=== PATIENT | male | born 1950 | race Caucasian/White ===

== ENCOUNTER 2016-07-14 22:11 | Inpatient (IN) | payer MEDICARE, OTHER ==
[~2016-07-14] VITALS: Ht 165.1 cm; Wt 77.0 kg
[~2016-07-14 22:11] MED LIST: AMLO-218 PO; ASPI-664 PO; ATOR20TA38 PO; CARV6.2579 PO; CIPR500T4 PO; DOCU-144 PO; LACTINEX PO; LANT3I SC; LOSA50TA6 PO; METF500T PO; METR500T14 PO
[2016-07-14 22:27] LABS: ADD SCAN DIFF NO
[2016-07-14] MEDS: LABETALOL HCL 20MG INJ IV PRN ×2 (22:27→23:00)
[2016-07-14 22:32] LABS: BASOPHILS % 0.3 % (0.0-2.0); EOSINOPHILS # 0.2 10^3/ul (0.0-0.5); EOSINOPHILS % 1.9 % (0.0-7.0); HEMATOCRIT 44.8 % (42.0-52.0); HEMOGLOBIN 16.2 g/dl (14.0-18.0); LYMPHOCYTES # 2.7 10^3/ul (0.8-2.9); LYMPHOCYTES % 26.9 % (15.0-51.0); MEAN CORPUSCULAR HEMOGLOBIN 30.6 pg (29.0-33.0); MEAN CORPUSCULAR HGB CONC 36.2 g/dl (32.0-37.0); MEAN CORPUSCULAR VOLUME 84.7 fl (82.0-101.0); MEAN PLATELET VOLUME 9.1 fl (7.4-10.4); MONOCYTE # 0.8 10^3/ul (0.3-0.9); MONOCYTES % 8.5 % (0.0-11.0); NEUTROPHIL # 6.1 10^3/ul (1.6-7.5); NEUTROPHILS % 62.1 % (39.0-77.0); PLATELET COUNT 213 10^3/UL (140-415); RED BLOOD COUNT 5.29 10^6/ul (4.70-6.10); RED CELL DISTRIBUTION WIDTH 12.3 % (11.5-14.5); WHITE BLOOD COUNT 9.9 10^3/ul (4.8-10.8)
[2016-07-14 22:37] LABS: ALBUMIN 4.5 g/dl (3.3-4.9); CHLORIDE 100 mmol/L (97-110)
[2016-07-14 22:38] LABS: INR 0.82; PROTIME 11.3 Sec (12.2-14.2); PT RATIO 0.9; SODIUM 140 mmol/L (135-144)
[2016-07-14 22:39] LABS: PARTIAL THROMBOPLASTIN TIME 23.4 Sec (25.0-35.0)
[2016-07-14 22:40] LABS: ALKALINE PHOSPHATASE 109 IU/L (42-121); ANION GAP 16 (8-16); ASPARTATE AMINO TRANSFERASE 19 IU/L (15-46); BILIRUBIN,INDIRECT 0.4 mg/dl (0-1.1); BILIRUBIN,TOTAL 0.4 mg/dl (0.2-1.3); CARBON DIOXIDE 28 mmol/L (21-31); CREATININE 0.83 mg/dl (0.61-1.24)
[2016-07-14 22:41] LABS: ALANINE AMINOTRANSFERASE 32 IU/L (13-69); ALBUMIN/GLOBULIN RATIO 1.45; BLOOD UREA NITROGEN 16 mg/dl (7-20); GLUCOSE 325 mg/dl (70-220); TOTAL PROTEIN 7.6 g/dl (6.1-8.1)
--- NOTE | 2016-07-14 22:49 | RADRPT ---
AMENDMENT: 07/14/2016 10:49:25 PM Negro Cabrera MD COMPARISON: Chest x-ray February 20, 2015. PROCEDURE: CHEST - 1 VIEW CLINICAL INDICATION: 66-year-old male with chest pain. TECHNIQUE: A single frontal AP semi-erect view of the chest was performed portably. The images we re reviewed on a PACS workstation. COMPARISON: Chest x-ray February [id number]. FINDINGS: The cardiomediastinal silhouette is mildly enlarged. There is a shallow inspiration. There is mini mal bibasilar subsegmental atelectasis. There is no evidence for an infiltrate. There is no eviden ce for congestive heart failure. There is no evidence for pneumothorax. The osseous structures are i ntact. IMPRESSION: 1. Cardiomegaly. 2. Shallow inspiration. 3. Minimal bibasilar subsegmental atelectasis. .Negro Cabrera MD, MD Date Time Electronically viewed and signed by .Negro Cabrera MD, on 07/14/2016 22:50 .M/
--- NOTE | 2016-07-14 22:51 | RADRPT ---
PROCEDURE: CT Brain without contrast. CLINICAL INDICATION: Possible Stroke TECHNIQUE: A multiplanar CT of the brain was performed on a CT scanner utilizing axial imaging fro m the skull base through the vertex without IV contrast. The CTDIvol is 39.15 mGy and the DLP is 63 4.23 mGycm. One or more of the following dose reduction techniques were utilized: Automated exposu re control, adjustment of the mA and/or kV according to patient size, use of iterative reconstructio n technique. COMPARISON: 02/20/2015 CT brain FINDINGS: No evidence of intracranial hemorrhage or abnormal extra-axial fluid collection. Extensive patchy and confluent low attenuation throughout the deep white matter, basal ganglia, and brainstem, compatible with sequelae of chronic microvascular ischemic injury. Remote right occipita l lobe and left superior cerebellar hemisphere ischemic infarcts. The ventricles and subarachnoid spaces are prominent compatible with a mild loss. The basal cisterns, posterior fossa contents, brainstem, craniocervical junction, orbits, pituitary axis, paranasal sinuses, mastoid air cells, and calvarium are unremarkable. IMPRESSION: 1. No intracranial hemorrhage or abnormal extra-axial fluid collection. 2. Extensive chronic microvascular ischemic changes deep white matter with remote ischemic infarcti on in the right occipital and left superior cerebellar hemisphere. 3. Early ischemic injury may be occult to CT imaging and diffusion weighted MRI may be considered as clinically warranted. 4. Results were discussed with José Antonio Matthews 07/14/2016 10:46:26 PM . RPTAT:AAJJ Physician Yumiko Date Time Electronically viewed and signed by Physician Yumiko on 07/14/2016 22:51 ENE/
[2016-07-14 22:53] LABS: TROPONIN-I < 0.010 ng/ml (0.00-0.12)
--- NOTE | 2016-07-14 23:17 | QN ---
Documentation Comment 66 yo man with history of stroke presents with symptoms concerning for stroke. Last well ~19:45 local time per family, then balance difficulty and some right side leaning, dizziness. Similar to prior presentation that ultimately was determined not to be stroke, however CT head shows numerous prior strokes. Very hypertensive on presentation, "not good about taking meds" including ASA. No other blood thinner use reported. No recent surgery or major trauma. Examination shows him to be awake, alert, not latvian speaking for the most part , family translates. No definite dysarthria, EOMI, no evidence of visual field loss or hemineglect. No diplopia. No droop. No drift of arms, subjectively feels right arm weaker than usual. Legs bilaterally weak (baseline walker use) . Minor sensory change on right he thinks. NIHSS = 4 Dx: 1. Dizziness and balance trouble 2. H/o similar symptoms and negative stroke evaluation 3. Numerous prior strokes 4. Hypertension, severe Recs: Discussed option of tPA with patient and family. Due to lack of significant objective deficit adjusting for baseline deficit, and given the fact the patient has presented similarly with negative stroke evaluation, I feel chance of benefit is small. I also think chance for harm higher than usual due to severe hypertension and history of hemorrhagic transformation of prior stroke. Overall risk>benefit as best I can determine. Did discuss with them that this could be a new stroke and I have little ability to predict how symptoms will evolve. Cautious blood pressure management to avoid hypotension. Eval toxic/metabolic/infectious process. MRI brain if possible. RUFINO FRANKLIN MD Jul 14, 2016 23:17
[2016-07-14 23:28] LABS: ADD UMIC YES; URINE BILIRUBIN (Dip) NEGATIVE (NEGATIVE); URINE BLOOD (Dip) 1+ (NEGATIVE); URINE COLOR LT. YELLOW (YELLOW); URINE GLUCOSE (Dip) >=1000 % (NEGATIVE); URINE KETONES (Dip) 15 (NEGATIVE); URINE LEUKOCYTE ESTERASE (Dip) NEGATIVE (NEGATIVE); URINE NITRITE (Dip) NEGATIVE (NEGATIVE); URINE TOTAL PROTEIN (Dip) 2+ (NEGATIVE); URINE UROBILINOGEN (Dip) 0.2 E.U./dL (0.1-1.0)
[2016-07-14] MEDS ORDERED: niCARdipine-D5W 0.1MG/ML DRIP 200 ML IV STA (23:39)
[2016-07-14] MEDS ORDERED: INSULIN REGULAR, HUMAN 100 UNIT in SOD CHLORIDE 0.9% 99 ML IV STA ×2 (23:39)
[2016-07-14 23:50] LABS: URINE RBCS 0-2 /HPF (0)
[2016-07-14] MEDS ORDERED: SOD CHLORIDE 0.9% 1,000 ML IV SCH (23:54)
[2016-07-14 23:57] LABS: BARBITURATES Negative (NEGATIVE); BENZODIAZEPINES Negative (NEGATIVE); CANNABINOIDS Negative (NEGATIVE); COCAINE Negative (NEGATIVE); OPIATES Negative (NEGATIVE)
[2016-07-15] VITALS (85 sets, daily range): BP systolic 119–185; BP diastolic 58–98; PULSE 76–108; RESP 7–30; TEMP 98.2; Ht 165.1 cm; Wt 77.0 kg
[2016-07-15] MEDS ORDERED: FLUMAZENIL 0.5 MG INJ IV PRN
[2016-07-15] MEDS ORDERED: ACETAMINOPHEN 650 MG SUPP PR PRN
[2016-07-15] MEDS ORDERED: ALBUTEROL 0.5% (NEB) 2.5 MG/0.5 ML AMP NEB PRN
[2016-07-15] MEDS ORDERED: morphine 2 MG INJ IV PRN
[2016-07-15] MEDS ORDERED: INSULIN REGULAR, HUMAN 100 UNIT in SOD CHLORIDE 0.9% 99 ML IV SCH ×2
[2016-07-15] MEDS ORDERED: IPRATROPIUM (NEB) 0.5 MG/2.5 ML AMP NEB PRN
[2016-07-15] MEDS ORDERED: NITROGLYCERIN (SL) 0.4 MG TAB SL PRN
[2016-07-15] MEDS ORDERED: BISACODYL 10 MG SUPP PR PRN
[2016-07-15] MEDS: ACCUCHECK XX SCH ×12 (00:20→11:26)
--- NOTE | 2016-07-15 00:54 | HP ---
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 1. Acute ischemic stroke - will admit the patient to the ICU, consult neurology , neurovascular checks, fall precautions, PT/OT/ST eval, 2D ECHO, TSH, mag levels, cycle cardiac markers, check lipid panel 2. Hypertensive Emergency - will continue with cardene drip to maintain sbp < 180 3. Type II DM - uncontrolled - check hgba1c, Insulin drip 4. CAD s/p PCI - restart aspirin, add plavix 5. Hypothyroidism - check TSH, c/w synthroid 6. CHF with diastolic dysfunction - ECHO, lasix prn 7. Hyperlipidemia - lipid panel - statin therapy 8. Non-compliance - long conversation with patient held for taking aspirin/ plavix as scheduled 9. GI ppx - pepcid 10. DVT ppx - scds answered all of his questions. as per clinical course. this critical care note took greater than 1 hour to complete HPI/ROS Admit Date/Time Admit Date/Time 07/15/2016, 12:47 am Hx of Present Illness 66 yo male with a past medical history of multiple CVA with residual left sided weakness, type II DM, essential hypertension, CAD s/p PCI x2, hypothyroidism, CHF diastolic dysfunction, hyperlipidemia, who presents with right sided weakness. Around 7:45 pm the patient had gone to the bathroom, and the heard a thump noise. She thought he had fallen. She went into the bathroom, and the patient stated that he felt like he about to fall. He started walking, and the patient started drifting to the right, with dizziness and headache, blurriness in vision. No slurred speech or facial droop was noted. The called EMS, and brought him here to [facility]. He denied any chest pain, shortness of breath, nausea/vomiting/diarrhea/constipation, urinary/ bowel irregularities, fevers/chills, or other constitutional symptoms. ED course: code stroke was called, no TPA 2/2 ischemia, IV cardene and IV insulin gtt started. ROS 14 point review of systems completed, please refer to HPI for any positive findings PMH/Family/Social Past Medical History previous CVA x2 Medical History: congestive heart failure, coronary artery disease, diabetes, high cholesterol, hypertension, hypothyroid Past Surgical History cataracts, nephrolithiasis removal Past Surgical Hx: angioplasty Family History Significant Family History: no pertinent family hx Social History Alcohol Use: none Smoking Status: Former smoker Drug Use: none Exam/Review of Systems Vital Signs Vitals Vital Signs Date Time Temp Pulse Resp B/P Pulse Ox O2 Delivery O2 Flow Rate FiO2 07/15/16 00:00 98.2 76 17 174/81 98 Nasal Cannula 2.0 Exam Exam Gen [place]: mild to moderate distress 2/2 to right sided weakness, AAOx4 HEENT: PERRLA, EOMI, no pharyngeal erythema, no tonsillar exudates, no lymphadenopathy, no JVD, 1+ bilateral carotid bruits, mild right facial droop NECK: supple, no thyromegaly THORAX: symmetrical, no obvious deformities CV: S1S2, RRR, no M/G/R Lungs: CTAB no W/C/R/R Abd: soft, NT/ND, +BS, no rebound, no guarding, neg HSM EXT: no edema, no ecchymosis, no clubbing, 3/5 strength upper/lower right extremity, 4/5 upper and lower left extremity Neuro: CN II-IV, , VIII-XII grossly intact, V, VII abnormal, no focal deficits , DTR's 2+ equal and symmetrical Psych: fair mood and affect Skin: C/D/I Labs Result Diagram: 07/14/16221907/14/162219 Medications Medications Current Medications Sodium Chloride (NS) 1,000 ml @ 75 mls/hr [id number] IV ; Start 07/14/16 at 23:54 Flumazenil (Romazicon) 0.2 mg Q1M PRN IV BENZODIAZEPINE OVERDOSE; Start at 00:00 Ondansetron HCl (Zofran Inj) 4 mg Q6H PRN IV NAUSEA AND/OR VOMITING; Start at 00:00 Nitroglycerin (Nitroglycerin (Sl Tab) 0.4 Mg) 1 tab Q5M PRN SL CHEST PAIN; Start 07/15/16 at 00:00 Acetaminophen (Tylenol Supp) 650 mg Q4H PRN DE PAIN LEVEL 1-3 OR FEVER; Start 07/15/16 at 00:00 Morphine Sulfate (morphine) 2 mg Q4H PRN IV PAIN LEVEL 7-10; Start 07/15/16 at 00:00 Lorazepam (Ativan) 1 mg Q2H PRN IV ANXIETY; Start 07/15/16 at 00:00 Bisacodyl (Dulcolax Supp) 10 mg DAILY PRN DE CONSTIPATION; Start 07/15/16 at 00 :00 Famotidine (Pepcid Iv) 20 mg Q12 IV ; Start 07/15/16 at 09:00 Diagnostic Test (Pha) (Accucheck) 1 ea Q1H XX Last administered on 07/15/16t 00 :20; Admin Dose 1 EA; Start 07/15/16 at 00:00 Dextrose (D50w Syringe) 25 ml Q15M PRN IV Till BS 80 mg/dL or above x2; Start 07/15/16 at 00:00 Dextrose (D50w Syringe) 50 ml Q15M PRN IV Till BS 80 mg/dL or above x2; Start 07/15/16 at 00:[address] brain IMPRESSION: 1. No intracranial hemorrhage or abnormal extra-axial fluid collection. 2. Extensive chronic microvascular ischemic changes deep white matter with remote ischemic infarction in the right occipital and left superior cerebellar hemisphere. 3. Early ischemic injury may be occult to CT imaging and diffusion weighted MRI may be considered as clinically warranted. 4. Results were discussed with José Antonio Matthews 07/14/2016 10:46:26 PM . CXR IMPRESSION: 1. Cardiomegaly. 2. Shallow inspiration. 3. Minimal bibasilar subsegmental atelectasis. TIERRA CAMARILLO MD Jul 15, 2016 00:53
--- NOTE | 2016-07-15 01:20 | ERA ---
ER Documentation Chief Complaint Date/Time DATE: 07/15/16 TIME: 01:19 Chief Complaint leaning right side x 2 hours. c/o headache HPI This is a 66-year-old male comes in with the leading to the right for 2 hours. Patient has multiple presentations of multiple previous CVAs. Denies any fevers or chills. Denies any nausea vomiting. Patient does take aspirin but no other blood thinners. Onset 2 hours ago. ROS All systems reviewed and are negative except as per history of present illness. Medications Home Meds Active Scripts Lactobacillus Acidophilus* (Lactinex*) 1 Tab Chew, 1 TAB PO BID for 7 Days, TAB Prov:GEMA NICOLE . 02/25/15 Ciprofloxacin Hcl* (Ciprofloxacin Hcl*) 500 Mg Tablet, 500 MG PO BID for 5 Days , TAB Prov:[facility] . 02/25/15 Metronidazole* (Metronidazole*) 500 Mg Tablet, 500 MG PO Q8 for 5 Days, TAB Prov:[facility] . 02/25/15 Docusate Sodium* (Colace*) 100 Mg Cap, 100 MG PO Q12H for 30 Days Prov:GEMA NICOLE . 02/25/15 Atorvastatin Calcium* (Atorvastatin Calcium*) 20 Mg Tab, 40 MG PO HS, #30 Prov:THU MAY 12/30/14 Amlodipine Besylate* (Norvasc*) 10 Mg Tab, 10 MG PO DAILY, #30 Prov:THU MAY 12/30/14 Reported Medications Metformin Hcl (Glucophage) 500 Mg Tablet, 1000 MG PO BID, TAB 02/21/15 Carvedilol* (Carvedilol*) 6.25 Mg Tablet, 6.25 MG PO BID, TAB 02/21/15 Losartan Potassium* (Losartan Potassium*) 50 Mg Tablet, 50 MG PO BID, TAB 02/21/15 Insulin Glargine* (Lantus*) 100 Unit/Ml Soln, 13 UNIT SC BID, EA 02/21/15 Aspirin* (Aspirin* EC) 81 Mg Tablet.dr, 81 MG PO DAILY, TAB 02/21/15 Allergies Allergies: Coded Allergies: No Known Drug Allergy (Verified Allergy, Unknown, 02/20/15) PMhx/Soc History of Surgery: Yes (PCIx2, cataract sx, kidney stone removal) Anesthesia Reaction: No Hx Neurological Disorder: No Hx Respiratory Disorders: No Hx Cardiac Disorders: Yes (CAD) Hx Psychiatric Problems: No Hx Miscellaneous Medical Probl: Yes (CVA, DM, HTN, hypothyroidism, CHF, pelvic fx) Hx Alcohol Use: No Hx Substance Use: No Hx Tobacco Use: No Smoking Status: Former smoker Physical Exam Vitals Vital Signs Date Time Temp Pulse Resp B/P Pulse Ox O2 Delivery O2 Flow Rate FiO2 07/15/16 00:00 98.2 76 17 174/81 98 Nasal Cannula 2.0 07/14/16 23:00 98.0 67 18 206/94 95 Room Air 07/14/16 22:30 Nasal Cannula 2 07/14/16 22:25 64 18 242/112 95 Room Air 07/14/16 22:12 98.0 84 20 228/129 95 Physical Exam Const: [] Head: Atraumatic Eyes: Normal Conjunctiva ENT: Normal External Ears, Nose and Mouth. Neck: Full range of motion..~ No meningismus. Resp: Clear to auscultation bilaterally Cardio: Regular rate and rhythm, no murmurs Abd: Soft, non tender, non distended. Normal bowel sounds Skin: No petechiae or rashes Back: No midline or flank tenderness Ext: No cyanosis, or edema Neur: Awake and alert Psych: Normal Mood and Affect Result Diagram: 07/14/16221907/14/162219 Results 24 hrs Laboratory Tests Test 07/14/16 22:20 07/14/16 22:25 07/14/16 23:05 Activated Partial Thromboplast Time 23.4Sec Alanine Aminotransferase (ALT/SGPT) 32IU/L Albumin 4.5g/dl Albumin/Globulin Ratio 1.45 Alkaline Phosphatase 109IU/L Anion Gap 16 Aspartate Amino Transf (AST/SGOT) 19IU/L Basophils # 0.010^3/ul Basophils % 0.3% Blood Urea Nitrogen 16mg/dl Calcium Level 10.0mg/dl Carbon Dioxide Level 28mmol/L Chloride Level 100mmol/L Creatinine 0.83mg/dl Direct Bilirubin 0.00mg/dl Eosinophils # 0.210^3/ul Eosinophils % 1.9% Globulin 3.10g/dl Glucose Level 325mg/dl Hematocrit 44.8% Hemoglobin 16.2g/dl Hemoglobin A1c 10.8% INR International Normalized Ratio 0.82 Indirect Bilirubin 0.4mg/dl Lymphocytes # 2.710^3/ul Lymphocytes % 26.9% Mean Corpuscular Hemoglobin 30.6pg Mean Corpuscular Hemoglobin Concent 36.2g/dl Mean Corpuscular Volume 84.7fl Mean Platelet Volume 9.1fl Monocytes # 0.810^3/ul Monocytes % 8.5% Neutrophils # 6.110^3/ul Neutrophils % 62.1% Nucleated Red Blood Cells # 0.010^3/ul Nucleated Red Blood Cells % 0.0/100WBC Platelet Count 87436^3/UL Potassium Level 4.0mmol/L Prothrombin Time 11.3Sec Prothrombin Time Ratio 0.9 Red Blood Count 5.2910^6/ul Red Cell Distribution Width 12.3% Sodium Level 140mmol/L Total Bilirubin 0.4mg/dl Total Protein 7.6g/dl Troponin I < 0.010ng/ml White Blood Count 9.910^3/ul Bedside Glucose 324mg/dL Urine Amphetamines Screen Negative Urine Barbiturates Negative Urine Benzodiazepines Screen Negative Urine Bilirubin NEGATIVE Urine Cannabinoids Negative Urine Clarity CLEAR Urine Cocaine Screen Negative Urine Color LT. YELLOW Urine Glucose >=1000% Urine Hemoglobin 1+ Urine Ketones 15 Urine Leukocyte Esterase NEGATIVE Urine Microscopic RBC 0-2/HPF Urine Microscopic WBC 0-2/HPF Urine Nitrite NEGATIVE Urine Opiates Screen Negative Urine Specific [place] 1.025 Urine Total Protein 2+ Urine Urobilinogen 0.2 E.U./dL Urine pH 6.0 Current Medications Medications (Trade) Dose Ordered Sig/Geronimo Route PRN Reason Start Time Stop Time Status Last Admin Dose Admin Labetalol HCl 20 mg 20 mg Q20M PRN IV ELEVATED BLOOD PRESSURE 07/14/16 22:30 07/14/16 23:01 DC 07/14/16 23:00 Nicardipine HCl 200 ml @ 50 mls/hr ONCE STAT IV 07/14/16 23:39 07/15/16 03:38 07/14/16 23:56 Insulin Human Regular 100 unit/ Sodium Chloride 100 ml @ 7.95 mls/hr TITRATE STAT IV 07/14/16 23:39 07/15/16 12:13 07/15/16 00:07 Sodium Chloride (NS) 1,000 ml @ 75 mls/hr [id number] IV 07/14/16 23:54 Flumazenil (Romazicon) 0.2 mg Q1M PRN IV BENZODIAZEPINE OVERDOSE 07/15/16 00:00 Ondansetron HCl (Zofran Inj) 4 mg Q6H PRN IV NAUSEA AND/OR VOMITING 07/15/16 00:00 Albuterol (Proventil 0.5% (Neb)) 2.5 mg Q2H RESP THERAPY PRN NEB SHORTNESS OF BREATH 07/15/16 00:00 Ipratropium [place] (Atrovent 0.02% (Neb)) 0.5 mg Q2H RESP THERAPY PRN NEB SHORTNESS OF BREATH 07/15/16 00:00 Nitroglycerin (Nitroglycerin (Sl Tab) 0.4 Mg) 1 tab Q5M PRN SL CHEST PAIN 07/15/16 00:00 Acetaminophen (Tylenol Supp) 650 mg Q4H PRN OR PAIN LEVEL 1-3 OR FEVER 07/15/16 00:00 Morphine Sulfate (morphine) 2 mg Q4H PRN IV PAIN LEVEL 7-10 07/15/16 00:00 Lorazepam (Ativan) 1 mg Q2H PRN IV ANXIETY 07/15/16 00:00 Bisacodyl (Dulcolax Supp) 10 mg DAILY PRN OR CONSTIPATION 07/15/16 00:00 Miscellaneous Information (* Miscellaneous Pharmacy Order) Discontinue all previ... PROTOCOL ONCE XX 07/15/16 00:00 07/15/16 00:11 DC Diagnostic Test (Pha) 1 ea 1 ea Q1H XX 07/15/16 00:00 07/15/16 00:20 Insulin Human Regular/Sodium Chloride (Humulin R/NS) 100 ml @ 0 mls/hr PER PROTOCOL IV 07/15/16 00:00 Miscellaneous Information (* Miscellaneous Pharmacy Order) Treatment of Hypoglycemia: 1.BG 51... Per protocol XX 07/15/16 00:00 Dextrose (D50w Syringe) 25 ml Q15M PRN IV Till BS 80 mg/dL or above x2 07/15/16 00:00 Dextrose 50 ml 50 ml Q15M PRN IV Till BS 80 mg/dL or above x2 07/15/16 00:00 Nicardipine HCl/ Dextrose (Cardene Iv/D5W) 250 ml @ 50 mls/hr PER PROTOCOL IV 07/15/16 00:00 Procedures/MDM Chest X-ray 1V Interpreted by me: Soft Tissue: No acute abnormalities Bones: No acute abnormalities Mediastinum/Cardiac Silhouette/Lungs: No acute abnormalities EKG: Rate/Rhythm: Normal Sinus Rhythm QRS, ST, T-waves: No changes consistent w/ acute ischemia Impression: No evidence of ischemia or arrhythmia Medical decision makin-year-old male was evaluated by telemetry neurology. Both the neurologist and myself felt that the risks outweigh the benefits given that this is a recurrent presentation. Patient will be admitted to ICU with tight blood pressure control. Please see neurologist full dictated note. Patient will be admitted to hospitalist. Critical Care: Time: 45 minutes Treatments/Evaluations: Close monitoring and treatment of unstable vital signs, cardiorespiratory, and neurologic status, while maintaining tight balance of fluid, respiratory, and cardiac interventions. Departure Diagnosis: Primary Impression: Acute CVA (cerebrovascular accident) Additional Impression: Acute weakness Condition: Critical KEVIN PEREZ Jul 15, 2016 01:20
[2016-07-15 05:30] LABS: ADD SCAN DIFF NO
[2016-07-15 05:42] LABS: BASOPHILS % 0.3 % (0.0-2.0); EOSINOPHILS # 0.1 10^3/ul (0.0-0.5); EOSINOPHILS % 0.5 % (0.0-7.0); HEMATOCRIT 42.8 % (42.0-52.0); HEMOGLOBIN 15.2 g/dl (14.0-18.0); LYMPHOCYTES # 1.4 10^3/ul (0.8-2.9); LYMPHOCYTES % 13.8 % (15.0-51.0); MEAN CORPUSCULAR HEMOGLOBIN 30.5 pg (29.0-33.0); MEAN CORPUSCULAR HGB CONC 35.5 g/dl (32.0-37.0); MEAN CORPUSCULAR VOLUME 85.8 fl (82.0-101.0); MEAN PLATELET VOLUME 9.1 fl (7.4-10.4); MONOCYTE # 0.6 10^3/ul (0.3-0.9); MONOCYTES % 5.9 % (0.0-11.0); NEUTROPHIL # 7.9 10^3/ul (1.6-7.5); NEUTROPHILS % 79.1 % (39.0-77.0); PLATELET COUNT 185 10^3/UL (140-415); RED BLOOD COUNT 4.99 10^6/ul (4.70-6.10); RED CELL DISTRIBUTION WIDTH 12.3 % (11.5-14.5)
[2016-07-15 05:56] LABS: ALBUMIN 3.8 g/dl (3.3-4.9)
[2016-07-15 05:57] LABS: POTASSIUM 3.8 mmol/L (3.5-5.1)
[2016-07-15 05:59] LABS: ALBUMIN/GLOBULIN RATIO 1.35; BILIRUBIN,INDIRECT 0.5 mg/dl (0-1.1); BILIRUBIN,TOTAL 0.5 mg/dl (0.2-1.3); CALCIUM 9.4 mg/dl (8.4-10.2); CREATININE 0.8 mg/dl (0.61-1.24); TOTAL PROTEIN 6.6 g/dl (6.1-8.1)
[2016-07-15 06:05] LABS: CHOL/HDL RATIO 6.2 RATIO
[2016-07-15 06:30] LABS: THYROID STIMULATING HORMONE 2.31 MIU/L (0.465-4.680)
[2016-07-15] MEDS: ONDANSETRON 4 MG INJ IV PRN (07:42)
[2016-07-15] MEDS: FAMOTIDINE 20 MG INJ IV SCH ×2 (09:29→20:21)
[2016-07-15] MEDS: DEXTROSE 5%-0.45% NACL 1,000 ML IV SCH ×2 (12:38→22:38)
[2016-07-15] MEDS: INSULIN GLARGINE [LANtus] 3 ML PEN SC SCH (12:42)
[2016-07-15] MEDS: ENOXAPARIN 40 MG/0.4 ML SYG SC SCH (12:43)
--- NOTE | 2016-07-15 12:44 | RADRPT ---
PROCEDURE: MRI Brain without contrast. CLINICAL INDICATION: CVA. TECHNIQUE: An MRI of the brain was performed utilizing the following sequences: Sagittal and axial T1 weighted, axial T2 weighted, axial diffusion weighted with ADC mapping, coronal GRE, and axial F LAIR. COMPARISON: Brain MRI of 02/20/2015, brain CT 07/14/2016. FINDINGS: There is 1.5 cm focus of restricted diffusion in the right posterior frontal lobe consistent with ac latonia/recent infarct. In addition there is a smaller 6 mm focus of restricted diffusion in the right posterior medulla consistent with acute/recent infarct. No hemorrhagic transformation is noted. Old lacunar infarcts are noted involving left frontal periventricular white matter/sequeira radiata, b ilateral lentiform nuclei, right thalamus and ganga, right cerebellum. Old right parietal lacunar inf arct. There is an old infarct of the superior left cerebellum with associated gradient susceptibili ty artifact/old blood products. There is a 4 mm old lacunar infarct in the anterior corpus callosum. Bilateral medial occipital lobe is infarcts are noted. No hypointense signal abnormalities are seen on the GRE images to suggest the presence of blood degr adation products. There is no evidence of intracranial hemorrhage, mass effect, or midline shift. N o extra-axial fluid collections are seen. The ventricles and sulci are mildly to moderately enlarged indicative of volume loss There are moderate foci of T2 FLAIR hyperintensity in the periventricular, deep, and subcortical whi te matter, which are nonspecific in etiology but likely reflect chronic small vessel ischemic change s. No abnormal intracranial vascular flow void is noted. The visualized paranasal sinuses demonstrate m ild to moderate mucosal thickening with small air-fluid level in the left sphenoid sinus. There is thinning of bilateral lens indicative of prior lens replacement. IMPRESSION: 1. A 1.5 cm focus of acute/recent infarct in the right posterior frontal lobe. Smaller 6 mm focus of acute/recent of a in the right posterior medulla. No hemorrhagic transformation is noted. 2. Old lacunar infarcts in the right parietal and left frontal periventricular white matter, ganga, r ight cerebellum, anterior corpus callosum, bilateral lentiform nuclei and right thalamus. 3. Old infarct with associated hemosiderin involving the superior left cerebellum. 4. Moderate chronic small vessel ischemic changes. 5. Mild to moderate generalized cerebral volume loss. 6. Mild to moderate paranasal sinus disease with small air-fluid level in the left sphenoid sinus, correlate for acute sinusitis. Critical result: A call report was made and above findings were discussed and acknowledged by Dr. Tammie butcher on 07/15/2016 12:27 PM. RPTAT: PP .Dayne Hernandez MD, MD Date Time Electronically viewed and signed by .Dayne Hernandez MD, on 07/15/2016 12:43 .N/
--- NOTE | 2016-07-15 13:03 | RADRPT ---
PROCEDURE: MRA Brain. CLINICAL INDICATION: CVA. TECHNIQUE: An MRA of the brain was performed without intravenous contrast utilizing the following sequences: 3-D [id number]-[id number] images through the intracranial vasculature with post processed matthew l intensity projections in multiple planes. COMPARISON: Concurrent MRI of the brain. FINDINGS: There are mild right and moderate left stenosis of cavernous and supraclinoid segments of the application internship al carotid arteries. The petrous internal carotid artery segments are patent without evidence of sig nificant stenosis. There is mild focal narrowing of bilateral A2 segments of the anterior cerebral arteries. There is moderate focal stenosis of the bilateral M2 branches of middle cerebral arteries. Otherwise the remainder proximal anterior cerebral and middle cerebral arteries are patent without s ignificant stenosis. There is mild segmental narrowing of basilar artery. Moderate to marked focal stenosis of P1/P2 segment junction and mid P2 segment of the left posterior cerebral artery. There is moderate to marked focal stenosis of distal P2 segment of the right posterior cerebral artery. Mi ld to moderate narrowing of proximal bilateral intradural vertebral arteries is noted. The remainde r of posterior cerebral arteries are patent without evidence of significant focal stenosis. No aneur ysms are identified. IMPRESSION: 1. Mild right and moderate left stenosis of cavernous and supraclinoid segments of the internal ca rotid arteries. 2. Mild focal narrowing of bilateral A2 segments of the anterior cerebral arteries. 3. Moderate focal stenosis of the bilateral M2 branches of middle cerebral arteries. 4. Mild segmental narrowing of basilar artery. 5. Moderate to marked focal stenosis of P1/P2 segment junction and mid P2 segment of the left poste rior cerebral artery. 6. Moderate to marked focal stenosis of distal P2 segment of the right posterior cerebral artery. 7. Mild to moderate narrowing of proximal bilateral intradural vertebral arteries. RPTAT: TT .Dyane Hernandez MD, MD Date Time Electronically viewed and signed by .Dayne Hernandez MD, MD on 07/15/2016 13:02 .N/
[2016-07-15] MEDS ORDERED: DEXTROSE 50% 50 ML SYRINGE IV PRN ×4 (17:00)
[2016-07-15] MEDS ORDERED: GLUCAGON 1 MG INJ IM PRN (17:00)
[2016-07-15] MEDS ORDERED: GLUCOSE GEL 15 GRAM TUBE BUCCAL PRN (17:00)
[2016-07-15] MEDS ORDERED: GLUCOSE GEL 15 GRAM TUBE PO PRN ×2 (17:00)
[2016-07-15] MEDS: INSULIN ASPART [NOVOLOG] 3 ML PEN SC SCH ×2 (18:39→20:31)
--- NOTE | 2016-07-15 22:31 | RADRPT ---
PROCEDURE: US Carotids. CLINICAL INDICATION: Syncope TECHNIQUE: Multiple sonographic of the carotid bifurcation region and vertebral arteries were obta ined utilizing crystal scale, duplex and color-flow imaging. The images were reviewed on a PACS worksta tion. COMPARISON: No prior studies are available for comparison. FINDINGS: Evaluation of the right carotid bifurcation region reveals mild calcific atherosclerotic disease. Evaluation of the left carotid bifurcation region reveals mild calcific atherosclerotic disease. There is antegrade flow within the vertebral arteries bilaterally. RIGHT CAROTID MEASUREMENTS: Common Carotid Cumvqn200.80 (cm/sec) Internal Carotid Artery - afqvqsua75.5 (cm/sec) Internal Carotid Artery - mid57.1 (cm/sec) Internal Carotid Artery - .6 (cm/sec) Internal Carotid/Common Carotid0.7 LEFT CAROTID MEASUREMENTS: Common Carotid Ssjrjj686.5 (cm/sec) Internal Carotid Artery - raidjixa60.5 (cm/sec) Internal Carotid Artery - mid53.2 (cm/sec) Internal Carotid Artery - fhqneq13 (cm/sec) Internal Carotid/Common Carotid0.6 IMPRESSION: 1. No evidence for hemodynamically significant carotid artery stenosis. 2. Normal antegrade flow in the vertebral arteries bilaterally. RPTAT: HPN[facility] Physician Zac Date Time Electronically viewed and signed by Physician Zac on 07/15/2016 22:31 /
[2016-07-15] MEDS: ATORVASTATIN 80 MG TAB PO SCH (22:37)
--- NOTE | 2016-07-15 22:38 | CONS ---
DATE OF ADMISSION: 07/15/2016 DATE OF CONSULTATION: 07/15/2016 TYPE OF CONSULTATION: Neurology. Thank you, Dr. Camarillo, for your kind referral for evaluation of acute stroke. HISTORY OF PRESENT ILLNESS: The patient presented last night to the emergency room with unsteadiness of gait, dizziness, and later on, possibly right leg weakness was noticed. MEDICATIONS PRIOR TO ADMISSION: 1. Ciprofloxin. 2. Metronidazole. 3. Amlodipine. 4. Atorvastatin 40. 5. Carvedilol. 6. Losartan. 7. Aspirin 81. 8. Docusate sodium. 9. Lactinex. 10. Insulin. 11. Glucophage. CURRENT MEDICATIONS: 1. Insulin sliding scale. 2. Lovenox for DVT prevention. 3. Cardene drip since admission to keep systolic blood pressure below 180. IMAGING: The patient had already an MRI of the brain, which shows a 1.5 cm focus of acute or recent infarct in the right posterior frontal lobe and smaller focus is seen in the right posterior medulla with no hemorrhagic transformation, old lacunes in the right parietal and left frontal white matter , ganga, right cerebellum, on the corpus callosum, thalami, and basal ganglia. MRA of the brain was done showing several areas of mild to moderate stenosis, also marked focal stenosis of the bilateral P2 posterior cerebral artery. PAST MEDICAL HISTORY: His previous history of stroke goes back to 2015. His other medical problems include hypertension, diabetes, coronary artery disease, dyslipidemia, congestive heart failure, also some noncompliance, according to the history and physical examination note. LABORATORY DATA: His carotid ultrasound from 2 years ago was negative so far. It was not repeated. His labs show normal CBC. Comprehensive metabolic panel within normal limits with exception of hemoglobin A1c 10.6. Cholesterol 248, LDL 167, triglycerides 207. PT 11, PTT 23. Urinalysis: 1+ hemoglobin, 2+ protein. Tox screen was negative. SOCIAL HISTORY: Former smoker. No alcohol or drug use. FAMILY HISTORY: Hypertension, diabetes. REVIEW OF SYSTEMS: All pertinent positives included in the above history of present illness. PHYSICAL EXAMINATION: VITAL SIGNS: Temperature 98.0, 101 heart rate, 17 respirations, 178/89 blood pressure. GENERAL: He is not in acute distress, lying in bed. HEENT: Normocephalic, atraumatic head. NECK: No carotid bruits. No thyromegaly. LUNGS: Clear to auscultation bilaterally. CARDIAC: Normal cardiac rhythm and sounds. ABDOMEN: Soft. EXTREMITIES: No cyanosis, clubbing, or edema. NEUROLOGIC: He is awake, alert, and oriented x2. He knows it is 06/2016, but he thinks it is 26 while it is the th already. Somewhat slurred speech. Cranial nerve examination shows intact visual urbano to visual threat bilaterally. Pupils post-surgical, but reactive from around 2 mm. Extraocular movements seem to be intact. Slightly asymmetrical face with right nasolabial fold flattening, but no definite weakness when he tries to smile and close his eyes. Sensory examination intact on the face. Tongue is in midline. Motor strength examination seems to be preserved. No pronator drift in upper extremities or lower extremities. Weakness in the right leg about 3/5 noticed. Sensory examination grossly intact in the extremities. Deep tendon reflexes 2 + upper extremities, absent lower extremities. Upgoing toes bilaterally. Coordination preserved when he is reaching for objects. No dysmetria or tremor. IMPRESSION: Acute ischemic stroke in 2 locations, according to MRI report, in the right medulla and right sequeira radiata. PLAN: Usually will allow elevated blood pressure in the first few days after acute stroke, then start gradually obtaining control. It has been already a day. Keep patient euglycemic. Will increase Lipitor 80 mg at bedtime. We will obtain carotid ultrasound and echocardiogram. I forgot to mention that EKG showed sinus rhythm. Will start Plavix and aspirin and have different therapists for better evaluation of his deficits and abilities Thank you very much for this interesting consultation. Dictated By: SON RDZ/MAURO Conf#: [id number] DID#: [id number] CC: TIERRA CAMARILLO MD;*EndCC* MTDD
--- NOTE | 2016-07-15 23:03 | RADRPT ---
PROCEDURE: XR Chest. CLINICAL INDICATION: Nasogastric tube placement. TECHNIQUE: Single frontal view of the chest was obtained COMPARISON: Chest dated 07/14/2016. FINDINGS: Nasogastric tube in place with tip in the proximal stomach. Likely cardiomegaly. Hypoinflated lungs accentuate pulmonary vascular markings. The lungs are otherwise substantially clear. There is no pleural effusion or pneumothorax. IMPRESSION: Nasogastric tube in place with tip in the proximal stomach. RPTAT: [facility] Physician Royce Date Time Electronically viewed and signed by Physician Royce on 07/15/2016 23:03 RS/
[2016-07-16] VITALS (56 sets, daily range): BP systolic 125–182; BP diastolic 67–132; PULSE 85–106; RESP 8–26
[2016-07-16] MEDS: INSULIN ASPART [NOVOLOG] 3 ML PEN SC SCH ×7 (01:52→20:52)
[2016-07-16 05:43] LABS: ADD SCAN DIFF NO
[2016-07-16 05:47] LABS: BASOPHILS % 0.2 % (0.0-2.0); EOSINOPHILS # 0.1 10^3/ul (0.0-0.5); EOSINOPHILS % 0.7 % (0.0-7.0); HEMATOCRIT 40.9 % (42.0-52.0); HEMOGLOBIN 14.6 g/dl (14.0-18.0); LYMPHOCYTES # 1.5 10^3/ul (0.8-2.9); LYMPHOCYTES % 15.6 % (15.0-51.0); MEAN CORPUSCULAR HEMOGLOBIN 30.6 pg (29.0-33.0); MEAN CORPUSCULAR HGB CONC 35.7 g/dl (32.0-37.0); MEAN CORPUSCULAR VOLUME 85.7 fl (82.0-101.0); MEAN PLATELET VOLUME 9.1 fl (7.4-10.4); MONOCYTE # 0.8 10^3/ul (0.3-0.9); MONOCYTES % 8.4 % (0.0-11.0); NEUTROPHIL # 7.2 10^3/ul (1.6-7.5); NEUTROPHILS % 74.9 % (39.0-77.0); PLATELET COUNT 186 10^3/UL (140-415); RED BLOOD COUNT 4.77 10^6/ul (4.70-6.10); RED CELL DISTRIBUTION WIDTH 12.3 % (11.5-14.5); WHITE BLOOD COUNT 9.6 10^3/ul (4.8-10.8)
[2016-07-16 05:56] LABS: ALBUMIN 3.6 g/dl (3.3-4.9); POTASSIUM 3.7 mmol/L (3.5-5.1)
[2016-07-16 05:58] LABS: CREATININE 0.75 mg/dl (0.61-1.24)
[2016-07-16 05:59] LABS: BILIRUBIN,INDIRECT 0.8 mg/dl (0-1.1); BILIRUBIN,TOTAL 0.8 mg/dl (0.2-1.3); CALCIUM 8.7 mg/dl (8.4-10.2); TOTAL PROTEIN 7.2 g/dl (6.1-8.1)
[2016-07-16] MEDS: ENOXAPARIN 40 MG/0.4 ML SYG SC SCH (08:47)
[2016-07-16] MEDS: DEXTROSE 5%-0.45% NACL 1,000 ML IV SCH ×2 (08:48→18:59)
[2016-07-16] MEDS: INSULIN GLARGINE [LANtus] 3 ML PEN SC SCH (08:53)
[2016-07-16] MEDS: CLOPIDOGREL 75 MG TAB NGT SCH ×2 (09:00→10:39)
[2016-07-16] MEDS: ASPIRIN (EC) 81 MG TAB PO SCH ×2 (09:00→10:38)
[2016-07-16] MEDS: FAMOTIDINE 20 MG INJ IV SCH ×2 (09:15→21:01)
[2016-07-16] MEDS: ONDANSETRON 4 MG INJ IV PRN (10:28)
--- NOTE | 2016-07-16 13:24 | RADRPT ---
Echocardiogram Report Patient Name: WILLIAM DAY Gender: Male Date: 1950 Study Date: 15-Jul-2016 Health Insurance Adjuster: Deshawn Killian RDCS Location: 120 Ref. Physician: TIERRA CAMARILLO Quality: Good Procedures: Transthoracic echocardiogram with complete 2D, M-Mode, and doppler examination. Indications: Cerebrovascular Accident. 2D/M Mode Doppler Measurement Value Normal Ranges Measurement Value Normal Ranges LVIDd 2D 4.0 3.5 - 5.6 cm AV Peak Ezekiel 1.3 m/sec LVIDs 2D 2.4 2.1 - 4.1 cm AV Peak PG 7.2 mmHg LVPWd 2D 1.0 0.6 - 1.1 cm LVOT Peak Ezekiel 1.0 m/sec IVSd 2D 1.0 0.6 - 1.1 cm LVOT Peak PG 3.9 mmHg AoR Diam 2D 2.7 2.0 - 3.7 cm MV E Peak Ezekiel 0.8 m/sec EDV 2D 70.0 cm3 MV A Peak Ezekiel 1.0 m/sec ESV 2D 14.1 cm3 MV E/A 0.7 LA Dimen 2D 3.4 2.3 - 4.0 cm MV Decel Time 138 msec MV Decel Foster 5 MV E/A 0.7 Findings Left Ventricle: Hyperdynamic left ventricular systolic function. Normal left ventricular cavity size. Normal left ventricular wall thickness. Ejection fraction is visually estimated at 70 %. Tissue Doppler/Mitral Doppler indices are consistent with impaired relaxation (Stage I diastolic dysfunction). Right Ventricle: Normal right ventricular size. Normal right ventricular systolic function. Left Atrium: The left atrium is normal in size. Right Atrium: The right atrium is normal in size. Mitral Valve: Normal appearance and function of the mitral valve with trace physiologic regurgitation. Aortic Valve: No significant aortic stenosis or insufficiency. Aortic cusps appear mildly calcified. Tricuspid Valve: Normal appearance of the tricuspid valve. Unable to obtain RVSP due to minimal presence of tricuspid regurgitation. Pulmonic Valve: Normal pulmonic valve appearance. Pericardium: Normal pericardium with no significant pericardial effusion. Aorta: Normal aortic root. IVC: Normal size and normal respiratory collapse consistent with normal right atrial pressure. Conclusions 1.Hyperdynamic left ventricular systolic function. Normal left ventricular cavity size. Normal left ventricular wall thickness. Ejection fraction is visually estimated at 70 %. Tissue Doppler/Mitral Doppler indices are consistent with impaired relaxation (Stage I diastolic dysfunction). 2.Normal appearance and function of the mitral valve with trace physiologic regurgitation. 3.No significant aortic stenosis or insufficiency. Aortic cusps appear mildly calcified. 4.Normal appearance of the tricuspid valve. Unable to obtain RVSP due to minimal presence of tricuspid regurgitation. Electronically Signed By: Franki Vyas 16-Jul-2016 13:23:40 -0800 Patient Name: WILLIAM DAY Study Date: 15-[id number]
--- NOTE | 2016-07-16 13:47 | PN ---
Date/Time of Note Date/Time of Note DATE: 07/16/16 TIME: 13:39 Assessment/Plan VTE Prophylaxis VTE Prophylaxis Intervention: SCD's Lines/Catheters IV Catheter Type (from Nrs): Peripheral IV Assessment/Plan Chief Complaint/Hosp Course 1. Acute ischemic stroke -MRI Brain shows a 1.5 cm focus of acute/recent infarct in the right posterior frontal lobe. Smaller 6 mm focus of acute/recent of a in the right posterior medulla -cont ASA, Plavix and Statin -Neuro consult appreciated 2. Hypertensive Emergency -wean off cardene drip -restart Home Rx 3. Type II DM - uncontrolled -A1C at 10.6 -Increase Insulin 4. CAD s/p PCI -cont ASA and Plavix 5. Hypothyroidism -c/w synthroid -TSH is WNL's 6. Hx of Non-compliance - long conversation with patient held for taking Rx 7. Hyperlipidemia - lipid panel - statin therapy -LDL>160 -cont Statin PPx- SCD's Problems: Subjective 24 Hr Interval Summary Constitutional: no complaints Exam/Review of Systems Vital Signs Vitals Vital Signs Date Time Temp Pulse Resp B/P Pulse Ox O2 Delivery O2 Flow Rate FiO2 07/16/16 12:00 96 8 178/83 95 Room Air 07/16/16 11:00 98.4 07/16/16 09:58 21 07/15/16 20:00 2.0 Intake and Output 07/15/16 07/15/16 07/16/16 15:00 23:00 07:00 Intake Total 1141.5 ml 1075 ml 1125 ml Output Total 150 ml 620 ml 825 ml Balance 991.5 ml 455 ml 300 ml Exam Constitutional: alert Respiratory: clear to auscultation Cardiovascular: regular rate and rhythm Gastrointestinal: soft, No distended Musculoskeletal: nl extremities to inspection Results Result Diagram: 07/16/16 0518 07/16/16 0510 Results 24 hrs Laboratory Tests Test 07/15/16 16:47 07/15/16 20:23 07/16/16 01:48 07/16/16 05:05 Bedside Glucose 243 H 274 H 320 H 318 H Test 07/16/16 05:10 07/16/16 05:18 07/16/16 08:50 07/16/16 12:56 Alanine Aminotransferase (ALT/SGPT) 29 Albumin 3.6 Albumin/Globulin Ratio 1.00 Alkaline Phosphatase 87 Anion Gap 15 Aspartate Amino Transf (AST/SGOT) 17 Blood Urea Nitrogen 10 Calcium Level 8.7 Carbon Dioxide Level 24 Chloride Level 100 Creatinine 0.75 Direct Bilirubin 0.00 Globulin 3.60 H Glucose Level 307 H Indirect Bilirubin 0.8 Potassium Level 3.7 Sodium Level 135 Total Bilirubin 0.8 Total Protein 7.2 Basophils # 0.0 Basophils % 0.2 Eosinophils # 0.1 Eosinophils % 0.7 Hematocrit 40.9 L Hemoglobin 14.6 Lymphocytes # 1.5 Lymphocytes % 15.6 Mean Corpuscular Hemoglobin 30.6 Mean Corpuscular Hemoglobin Concent 35.7 Mean Corpuscular Volume 85.7 Mean Platelet Volume 9.1 Monocytes # 0.8 Monocytes % 8.4 Neutrophils # 7.2 Neutrophils % 74.9 Nucleated Red Blood Cells # 0.0 Nucleated Red Blood Cells % 0.0 Platelet Count 186 Red Blood Count 4.77 Red Cell Distribution Width 12.3 White Blood Count 9.6 Bedside Glucose 250 H 296 H Medications Medications Current Medications Flumazenil (Romazicon) 0.2 mg Q1M PRN IV BENZODIAZEPINE OVERDOSE; Start at 00:00 Ondansetron HCl (Zofran Inj) 4 mg Q6H PRN IV NAUSEA AND/OR VOMITING Last administered on 07/16/16 10:28; Admin Dose 4 MG; Start 07/15/16 at 00:00 Nitroglycerin (Nitroglycerin (Sl Tab) 0.4 Mg) 1 tab Q5M PRN SL CHEST PAIN; Start 07/15/16 at 00:00 Acetaminophen (Tylenol Supp) 650 mg Q4H PRN [place] PAIN LEVEL 1-3 OR FEVER; Start 07/15/16 at 00:00 Morphine Sulfate (morphine) 2 mg Q4H PRN IV PAIN LEVEL 7-10; Start 07/15/16 at 00:00 Lorazepam (Ativan) 1 mg Q2H PRN IV ANXIETY; Start 07/15/16 at 00:00 Bisacodyl (Dulcolax Supp) 10 mg DAILY PRN [place] CONSTIPATION; Start 07/15/16 at 00 :00 Famotidine (Pepcid Iv) 20 mg Q12 IV Last administered on 07/16/16 09:15; Admin Dose 20 MG; Start 07/15/16 at 09:00 Insulin Glargine (Lantus) 15 unit DAILY SC Last administered on 07/16/16 08:53 ; Admin Dose 15 UNIT; Start 07/15/16 at 11:30 Enoxaparin Sodium 40 mg 40 mg DAILY SC Last administered on 07/16/16 08:47; Admin Dose 40 MG; Start 07/15/16 at 12:00 Dextrose/Sodium Chloride (D5-1/2ns) 1,000 ml @ 100 mls/hr Q10H IV Last administered on 07/16/16 08:48; Admin Dose 100 MLS/HR; Start 07/15/16 at 12:00 Insulin Aspart (Novolog Insulin Pen) NOVOLOG *MODERATE* ALGORI... Q4 SC Last administered on 07/16/16 12:59; Admin Dose 8 UNIT; Start 07/15/16 at 17:00 Miscellaneous Information 1 ea NOTE XX ; Start 07/15/16 at 17:00 Glucose (Glutose) 15 gm Q15M PRN PO DECREASED GLUCOSE; Start 07/15/16 at 17:00 Glucose (Glutose) 22.5 gm Q15M PRN PO DECREASED GLUCOSE; Start 07/15/16 at 17: 00 Dextrose (D50w Syringe) 25 ml Q15M PRN IV DECREASED GLUCOSE; Start 07/15/16 at 17:00 Dextrose (D50w Syringe) 50 ml Q15M PRN IV DECREASED GLUCOSE; Start 07/15/16 at 17:00 Glucagon (Glucagen) 1 mg Q15M PRN IM DECREASED GLUCOSE; Start 07/15/16 at 17:00 Glucose (Glutose) 15 gm Q15M PRN BUCCAL DECREASED GLUCOSE; Start 07/15/16 at 17 :00 Atorvastatin Calcium (Lipitor) 80 mg HS PO Last administered on 07/15/16 22:37 ; Admin Dose 80 MG; Start 07/15/16 at 21:00 Aspirin (Halfprin) 81 mg DAILY PO Last administered on 07/16/16 10:38; Admin Dose 81 MG; Start 07/16/16 at 09:00 Clopidogrel Bisulfate (plaVIX) 75 mg DAILY NGT Last administered on 07/16/16 10:39; Admin Dose 75 MG; Start 07/16/16 at 09:00 PRINCE NOWAK Jul 16, 2016 13:47
[2016-07-16] MEDS ORDERED: LABETALOL HCL 20MG INJ IV PRN (14:00)
[2016-07-16] MEDS: AMLODIPINE 10 MG TAB PO SCH (14:08)
[2016-07-16] MEDS: LOSARTAN 50 MG TAB PO SCH ×2 (14:08→20:50)
--- NOTE | 2016-07-16 19:17 | CONS ---
Date/Time of Note Date/Time of Note DATE: 07/16/16 TIME: 19:15 Consult Date/Type/Reason Admit Date/Time Jul 15, 2016 at 00:00 Initial Consult Date Type of Consultation: neurology Subjective No acute events, dizzy when tried to walk with PT, passed swallow Objective Vital Signs Date Time Temp Pulse Resp B/P Pulse Ox O2 Delivery O2 Flow Rate FiO2 07/16/16 18:30 88 10 138/72 97 Room Air 07/16/16 16:00 98.5 07/16/16 09:58 21 07/15/16 20:00 2.0 Intake and Output 07/15/16 07/15/16 07/16/16 15:00 23:00 07:00 Intake Total 1141.5 ml 1075 ml 1275 ml Output Total 150 ml 620 ml 825 ml Balance 991.5 ml 455 ml 450 ml Results/Medications Result Diagram: 07/16/16 0518 07/16/16 0510 Results 24 hrs Laboratory Tests Test 07/15/16 20:23 07/16/16 01:48 07/16/16 05:05 07/16/16 05:10 Bedside Glucose 274 H 320 H 318 H Alanine Aminotransferase (ALT/SGPT) 29 Albumin 3.6 Albumin/Globulin Ratio 1.00 Alkaline Phosphatase 87 Anion Gap 15 Aspartate Amino Transf (AST/SGOT) 17 Blood Urea Nitrogen 10 Calcium Level 8.7 Carbon Dioxide Level 24 Chloride Level 100 Creatinine 0.75 Direct Bilirubin 0.00 Globulin 3.60 H Glucose Level 307 H Indirect Bilirubin 0.8 Potassium Level 3.7 Sodium Level 135 Total Bilirubin 0.8 Total Protein 7.2 Test 07/16/16 05:18 07/16/16 08:50 07/16/16 12:56 07/16/16 17:17 Basophils # 0.0 Basophils % 0.2 Eosinophils # 0.1 Eosinophils % 0.7 Hematocrit 40.9 L Hemoglobin 14.6 Lymphocytes # 1.5 Lymphocytes % 15.6 Mean Corpuscular Hemoglobin 30.6 Mean Corpuscular Hemoglobin Concent 35.7 Mean Corpuscular Volume 85.7 Mean Platelet Volume 9.1 Monocytes # 0.8 Monocytes % 8.4 Neutrophils # 7.2 Neutrophils % 74.9 Nucleated Red Blood Cells # 0.0 Nucleated Red Blood Cells % 0.0 Platelet Count 186 Red Blood Count 4.77 Red Cell Distribution Width 12.3 White Blood Count 9.6 Bedside Glucose 250 H 296 H 165 Medications Current Medications Flumazenil (Romazicon) 0.2 mg Q1M PRN IV BENZODIAZEPINE OVERDOSE; Start at 00:00 Ondansetron HCl (Zofran Inj) 4 mg Q6H PRN IV NAUSEA AND/OR VOMITING Last administered on 07/16/16 10:28; Admin Dose 4 MG; Start 07/15/16 at 00:00 Nitroglycerin (Nitroglycerin (Sl Tab) 0.4 Mg) 1 tab Q5M PRN SL CHEST PAIN; Start 07/15/16 at 00:00 Acetaminophen (Tylenol Supp) 650 mg Q4H PRN [place] PAIN LEVEL 1-3 OR FEVER; Start 07/15/16 at 00:00 Morphine Sulfate (morphine) 2 mg Q4H PRN IV PAIN LEVEL 7-10; Start 07/15/16 at 00:00 Lorazepam (Ativan) 1 mg Q2H PRN IV ANXIETY; Start 07/15/16 at 00:00 Bisacodyl (Dulcolax Supp) 10 mg DAILY PRN [place] CONSTIPATION; Start 07/15/16 at 00 :00 Famotidine (Pepcid Iv) 20 mg Q12 IV Last administered on 07/16/16 09:15; Admin Dose 20 MG; Start 07/15/16 at 09:00 Enoxaparin Sodium 40 mg 40 mg DAILY SC Last administered on 07/16/16 08:47; Admin Dose 40 MG; Start 07/15/16 at 12:00 Dextrose/Sodium Chloride (D5-1/2ns) 1,000 ml @ 100 mls/hr Q10H IV Last administered on 07/16/16 18:59; Admin Dose 100 MLS/HR; Start 07/15/16 at 12:00 Insulin Aspart (Novolog Insulin Pen) NOVOLOG *MODERATE* ALGORI... Q4 SC Last administered on 07/16/16 17:19; Admin Dose 2 UNIT; Start 07/15/16 at 17:00 Miscellaneous Information 1 ea NOTE XX ; Start 07/15/16 at 17:00 Glucose (Glutose) 15 gm Q15M PRN PO DECREASED GLUCOSE; Start 07/15/16 at 17:00 Glucose (Glutose) 22.5 gm Q15M PRN PO DECREASED GLUCOSE; Start 07/15/16 at 17: 00 Dextrose (D50w Syringe) 25 ml Q15M PRN IV DECREASED GLUCOSE; Start 07/15/16 at 17:00 Dextrose (D50w Syringe) 50 ml Q15M PRN IV DECREASED GLUCOSE; Start 07/15/16 at 17:00 Glucagon (Glucagen) 1 mg Q15M PRN IM DECREASED GLUCOSE; Start 07/15/16 at 17:00 Glucose (Glutose) 15 gm Q15M PRN BUCCAL DECREASED GLUCOSE; Start 07/15/16 at 17 :00 Atorvastatin Calcium (Lipitor) 80 mg HS PO Last administered on 07/15/16 22:37 ; Admin Dose 80 MG; Start 07/15/16 at 21:00 Aspirin (Halfprin) 81 mg DAILY PO Last administered on 07/16/16 10:38; Admin Dose 81 MG; Start 07/16/16 at 09:00 Clopidogrel Bisulfate (plaVIX) 75 mg DAILY NGT Last administered on 07/16/16 10:39; Admin Dose 75 MG; Start 07/16/16 at 09:00 Insulin Glargine (Lantus) 20 unit DAILY@08 SC ; Start 07/17/16 at 08:00 Amlodipine Besylate (Norvasc) 10 mg DAILY PO Last administered on 07/16/16 14: 08; Admin Dose 10 MG; Start 07/16/16 at 14:00 Carvedilol (Coreg) 6.25 mg BID PO Last administered on 07/16/16 14:08; Admin Dose 6.25 MG; Start 07/16/16 at 14:00 Losartan Potassium (Cozaar) 50 mg BID PO Last administered on 07/16/16 14:08; Admin Dose 50 MG; Start 07/16/16 at 14:00 Labetalol HCl (Labetalol) 20 mg Q2H PRN IV sbp >170; Start 07/16/16 at 14:00 Assessment/Plan Chief Complaint/Hosp Course PHYSICAL EXAMINATION: GENERAL: He is not in acute distress, lying in bed. HEENT: Normocephalic, atraumatic head. NECK: No carotid bruits. No thyromegaly. LUNGS: Clear to auscultation bilaterally. CARDIAC: Normal cardiac rhythm and sounds. ABDOMEN: Soft. EXTREMITIES: No cyanosis, clubbing, or edema. NEUROLOGIC: He is awake, alert, and oriented x2. Somewhat slurred speech. Cranial nerve examination shows intact visual urbano to visual threat bilaterally. Pupils post-surgical, but reactive around 2 mm. Extraocular movements seem to be intact. Slightly asymmetrical face with right nasolabial fold flattening, but no definite weakness when he tries to smile and close his eyes. Sensory examination intact on the face. Tongue is in midline. Motor strength examination seems to be preserved. No pronator drift in upper extremities. Weakness in the right leg about 3/5 noticed. Sensory examination grossly intact in the extremities. Deep tendon reflexes 2+ upper extremities, absent lower extremities. Upgoing toes bilaterally. Coordination preserved when he is reaching for objects. No dysmetria or tremor. IMPRESSION: Acute ischemic stroke in 2 locations, according to MRI report, in the right medulla and right sequeira radiata. PLAN: Gradually obtaining BP control. Keep patient euglycemic. Lipitor 80 mg at bedtime. Plavix and aspirin. PT/OT Problems: SON JOHNSON MD Jul 16, 2016 19:17
[2016-07-16] MEDS: ATORVASTATIN 80 MG TAB PO SCH (20:50)
[2016-07-17] VITALS (26 sets, daily range): BP systolic 128–170; BP diastolic 65–100; PULSE 77–106; RESP 8–18
[2016-07-17] MEDS: INSULIN ASPART [NOVOLOG] 3 ML PEN SC SCH ×9 (00:59→20:42)
[2016-07-17] MEDS: DEXTROSE 5%-0.45% NACL 1,000 ML IV SCH (01:45)
[2016-07-17 05:51] LABS: ADD SCAN DIFF NO
[2016-07-17 06:11] LABS: ALBUMIN 3.5 g/dl (3.3-4.9)
[2016-07-17 06:12] LABS: POTASSIUM 3.7 mmol/L (3.5-5.1)
[2016-07-17 06:14] LABS: BILIRUBIN,INDIRECT 0.9 mg/dl (0-1.1); BILIRUBIN,TOTAL 0.9 mg/dl (0.2-1.3); CREATININE 0.83 mg/dl (0.61-1.24)
[2016-07-17 06:15] LABS: CALCIUM 9.1 mg/dl (8.4-10.2)
[2016-07-17 06:17] LABS: BASOPHILS % 0.3 % (0.0-2.0); EOSINOPHILS # 0.2 10^3/ul (0.0-0.5); EOSINOPHILS % 1.6 % (0.0-7.0); HEMATOCRIT 41.8 % (42.0-52.0); HEMOGLOBIN 14.8 g/dl (14.0-18.0); LYMPHOCYTES # 1.5 10^3/ul (0.8-2.9); LYMPHOCYTES % 14.3 % (15.0-51.0); MEAN CORPUSCULAR HEMOGLOBIN 30.6 pg (29.0-33.0); MEAN CORPUSCULAR HGB CONC 35.4 g/dl (32.0-37.0); MEAN CORPUSCULAR VOLUME 86.5 fl (82.0-101.0); MEAN PLATELET VOLUME 9.2 fl (7.4-10.4); MONOCYTES % 9.3 % (0.0-11.0); PLATELET COUNT 209 10^3/UL (140-415); RED BLOOD COUNT 4.83 10^6/ul (4.70-6.10); RED CELL DISTRIBUTION WIDTH 12.3 % (11.5-14.5); WHITE BLOOD COUNT 10.8 10^3/ul (4.8-10.8)
[2016-07-17] MEDS: ENOXAPARIN 40 MG/0.4 ML SYG SC SCH (08:15)
[2016-07-17] MEDS: INSULIN GLARGINE [LANtus] 3 ML PEN SC SCH (08:15)
[2016-07-17] MEDS: ASPIRIN (EC) 81 MG TAB PO SCH (08:27)
[2016-07-17] MEDS: CLOPIDOGREL 75 MG TAB NGT SCH (08:27)
[2016-07-17] MEDS: AMLODIPINE 10 MG TAB PO SCH (08:29)
[2016-07-17] MEDS: LOSARTAN 50 MG TAB PO SCH ×2 (08:29→20:32)
[2016-07-17] MEDS: FAMOTIDINE 20 MG INJ IV SCH ×2 (08:44→20:31)
[2016-07-17] MEDS: ONDANSETRON 4 MG INJ IV PRN (08:44)
--- NOTE | 2016-07-17 14:14 | PN ---
Date/Time of Note Date/Time of Note DATE: 07/17/16 TIME: 14:13 Assessment/Plan VTE Prophylaxis VTE Prophylaxis Intervention: SCD's Lines/Catheters IV Catheter Type (from Nrs): Peripheral IV Assessment/Plan Chief Complaint/Hosp Course 1. Acute ischemic stroke -MRI Brain shows a 1.5 cm focus of acute/recent infarct in the right posterior frontal lobe. Smaller 6 mm focus of acute/recent of a in the right posterior medulla -cont ASA, Plavix and Statin -Neuro consult appreciated, PT 2. Hypertensive Emergency-Improved -now off cardene drip -restart Home Rx 3. Type II DM - uncontrolled -A1C at 10.6 -Increase Insulin 4. CAD s/p PCI -cont ASA and Plavix 5. Hypothyroidism -c/w synthroid -TSH is WNL's 6. Hx of Non-compliance - long conversation with patient held for taking Rx 7. Hyperlipidemia - lipid panel - statin therapy -LDL>160 -cont Statin PPx- SCD's Problems: Subjective 24 Hr Interval Summary Constitutional: no complaints Exam/Review of Systems Vital Signs Vitals Vital Signs Date Time Temp Pulse Resp B/P Pulse Ox O2 Delivery O2 Flow Rate FiO2 07/17/16 12:00 88 07/17/16 12:00 13 144/77 94 Room Air 07/17/16 11:00 98.5 07/17/16 08:00 2.0 07/16/16 09:58 21 Intake and Output 07/16/16 07/16/16 07/17/16 14:59 22:59 06:59 Intake Total 1250 ml 525 ml 1100 ml Output Total 820 ml 1130 ml 1470 ml Balance 430 ml -605 ml -370 ml Exam Constitutional: alert Respiratory: clear to auscultation Cardiovascular: regular rate and rhythm Gastrointestinal: soft, No distended Musculoskeletal: nl extremities to inspection Results Result Diagram: 07/17/16 0519 07/17/16 0519 Results 24 hrs Laboratory Tests Test 07/16/16 17:17 07/16/16 20:49 07/17/16 00:40 07/17/16 05:19 Bedside Glucose 165 184 154 Alanine Aminotransferase (ALT/SGPT) 29 Albumin 3.5 Albumin/Globulin Ratio 1.00 Alkaline Phosphatase 83 Anion Gap 15 Aspartate Amino Transf (AST/SGOT) 16 Basophils # 0.0 Basophils % 0.3 Blood Urea Nitrogen 8 Calcium Level 9.1 Carbon Dioxide Level 26 Chloride Level 103 Creatinine 0.83 Direct Bilirubin 0.00 Eosinophils # 0.2 Eosinophils % 1.6 Globulin 3.50 H Glucose Level 185 # Hematocrit 41.8 L Hemoglobin 14.8 Indirect Bilirubin 0.9 Lymphocytes # 1.5 Lymphocytes % 14.3 L Mean Corpuscular Hemoglobin 30.6 Mean Corpuscular Hemoglobin Concent 35.4 Mean Corpuscular Volume 86.5 Mean Platelet Volume 9.2 Monocytes # 1.0 H Monocytes % 9.3 Neutrophils # 8.0 H Neutrophils % 74.0 Nucleated Red Blood Cells # 0.0 Nucleated Red Blood Cells % 0.0 Platelet Count 209 Potassium Level 3.7 Red Blood Count 4.83 Red Cell Distribution Width 12.3 Sodium Level 140 Total Bilirubin 0.9 Total Protein 7.0 White Blood Count 10.8 Test 07/17/16 05:23 07/17/16 08:10 07/17/16 11:59 Bedside Glucose 179 206 218 Medications Medications Current Medications Flumazenil (Romazicon) 0.2 mg Q1M PRN IV BENZODIAZEPINE OVERDOSE; Start at 00:00 Ondansetron HCl (Zofran Inj) 4 mg Q6H PRN IV NAUSEA AND/OR VOMITING Last administered on 07/17/16 08:44; Admin Dose 4 MG; Start 07/15/16 at 00:00 Nitroglycerin (Nitroglycerin (Sl Tab) 0.4 Mg) 1 tab Q5M PRN SL CHEST PAIN; Start 07/15/16 at 00:00 Acetaminophen (Tylenol Supp) 650 mg Q4H PRN [place] PAIN LEVEL 1-3 OR FEVER; Start 07/15/16 at 00:00 Morphine Sulfate (morphine) 2 mg Q4H PRN IV PAIN LEVEL 7-10; Start 07/15/16 at 00:00 Lorazepam (Ativan) 1 mg Q2H PRN IV ANXIETY; Start 07/15/16 at 00:00 Bisacodyl (Dulcolax Supp) 10 mg DAILY PRN [place] CONSTIPATION; Start 07/15/16 at 00 :00 Famotidine (Pepcid Iv) 20 mg Q12 IV Last administered on 07/17/16 08:44; Admin Dose 20 MG; Start 07/15/16 at 09:00 Enoxaparin Sodium (Lovenox) 40 mg DAILY SC Last administered on 07/17/16 08:15 ; Admin Dose 40 MG; Start 07/15/16 at 12:00 Miscellaneous Information 1 ea NOTE XX ; Start 07/15/16 at 17:00 Glucose (Glutose) 15 gm Q15M PRN PO DECREASED GLUCOSE; Start 07/15/16 at 17:00 Glucose (Glutose) 22.5 gm Q15M PRN PO DECREASED GLUCOSE; Start 07/15/16 at 17: 00 Dextrose (D50w Syringe) 25 ml Q15M PRN IV DECREASED GLUCOSE; Start 07/15/16 at 17:00 Dextrose (D50w Syringe) 50 ml Q15M PRN IV DECREASED GLUCOSE; Start 07/15/16 at 17:00 Glucagon (Glucagen) 1 mg Q15M PRN IM DECREASED GLUCOSE; Start 07/15/16 at 17:00 Glucose (Glutose) 15 gm Q15M PRN BUCCAL DECREASED GLUCOSE; Start 07/15/16 at 17 :00 Atorvastatin Calcium (Lipitor) 80 mg HS PO Last administered on 07/16/16 20:50 ; Admin Dose 80 MG; Start 07/15/16 at 21:00 Aspirin (Halfprin) 81 mg DAILY PO Last administered on 07/17/16 08:27; Admin Dose 81 MG; Start 07/16/16 at 09:00 Clopidogrel Bisulfate (plaVIX) 75 mg DAILY NGT Last administered on 07/17/16 08 :27; Admin Dose 75 MG; Start 07/16/16 at 09:00 Insulin Glargine (Lantus) 20 unit DAILY@08 SC Last administered on 07/17/16 08: 15; Admin Dose 20 UNIT; Start 07/17/16 at 08:00 Amlodipine Besylate (Norvasc) 10 mg DAILY PO Last administered on 07/17/16 08: 29; Admin Dose 10 MG; Start 07/16/16 at 14:00 Carvedilol (Coreg) 6.25 mg BID PO Last administered on 07/17/16 08:29; Admin Dose 6.25 MG; Start 07/16/16 at 14:00 Losartan Potassium (Cozaar) 50 mg BID PO Last administered on 07/17/16 08:29; Admin Dose 50 MG; Start 07/16/16 at 14:00 Labetalol HCl (Labetalol) 20 mg Q2H PRN IV sbp >170; Start 07/16/16 at 14:00 PRINCE NOWAK Jul 17, 2016 14:14
--- NOTE | 2016-07-17 18:23 | CONS ---
Date/Time of Note Date/Time of Note DATE: 07/17/16 TIME: 18:21 Consult Date/Type/Reason Admit Date/Time Jul 15, 2016 at 00:00 Type of Consultation: neurology Subjective no acute events, c/o vertigo Objective Vital Signs Date Time Temp Pulse Resp B/P Pulse Ox O2 Delivery O2 Flow Rate FiO2 07/17/16 16:00 83 07/17/16 15:00 12 143/73 97 Room Air 07/17/16 11:00 98.5 07/17/16 08:00 2.0 07/16/16 09:58 21 Intake and Output 07/16/16 07/16/16 07/17/16 15:00 23:00 07:00 Intake Total 1225 ml 400 ml 1100 ml Output Total 940 ml 1410 ml 1070 ml Balance 285 ml -1010 ml 30 ml Results/Medications Result Diagram: 07/17/16 0519 07/17/16 0519 Results 24 hrs Laboratory Tests Test 07/16/16 20:49 07/17/16 00:40 07/17/16 05:19 07/17/16 05:23 Bedside Glucose 184 154 179 Alanine Aminotransferase (ALT/SGPT) 29 Albumin 3.5 Albumin/Globulin Ratio 1.00 Alkaline Phosphatase 83 Anion Gap 15 Aspartate Amino Transf (AST/SGOT) 16 Basophils # 0.0 Basophils % 0.3 Blood Urea Nitrogen 8 Calcium Level 9.1 Carbon Dioxide Level 26 Chloride Level 103 Creatinine 0.83 Direct Bilirubin 0.00 Eosinophils # 0.2 Eosinophils % 1.6 Globulin 3.50 H Glucose Level 185 # Hematocrit 41.8 L Hemoglobin 14.8 Indirect Bilirubin 0.9 Lymphocytes # 1.5 Lymphocytes % 14.3 L Mean Corpuscular Hemoglobin 30.6 Mean Corpuscular Hemoglobin Concent 35.4 Mean Corpuscular Volume 86.5 Mean Platelet Volume 9.2 Monocytes # 1.0 H Monocytes % 9.3 Neutrophils # 8.0 H Neutrophils % 74.0 Nucleated Red Blood Cells # 0.0 Nucleated Red Blood Cells % 0.0 Platelet Count 209 Potassium Level 3.7 Red Blood Count 4.83 Red Cell Distribution Width 12.3 Sodium Level 140 Total Bilirubin 0.9 Total Protein 7.0 White Blood Count 10.8 Test 07/17/16 08:10 07/17/16 11:59 07/17/16 17:15 Bedside Glucose 206 218 110 Medications Current Medications Flumazenil (Romazicon) 0.2 mg Q1M PRN IV BENZODIAZEPINE OVERDOSE; Start at 00:00 Ondansetron HCl (Zofran Inj) 4 mg Q6H PRN IV NAUSEA AND/OR VOMITING Last administered on 07/17/16 08:44; Admin Dose 4 MG; Start 07/15/16 at 00:00 Nitroglycerin (Nitroglycerin (Sl Tab) 0.4 Mg) 1 tab Q5M PRN SL CHEST PAIN; Start 07/15/16 at 00:00 Acetaminophen (Tylenol Supp) 650 mg Q4H PRN [place] PAIN LEVEL 1-3 OR FEVER; Start 07/15/16 at 00:00 Morphine Sulfate (morphine) 2 mg Q4H PRN IV PAIN LEVEL 7-10; Start 07/15/16 at 00:00 Lorazepam (Ativan) 1 mg Q2H PRN IV ANXIETY; Start 07/15/16 at 00:00 Bisacodyl (Dulcolax Supp) 10 mg DAILY PRN [place] CONSTIPATION; Start 07/15/16 at 00 :00 Famotidine (Pepcid Iv) 20 mg Q12 IV Last administered on 07/17/16 08:44; Admin Dose 20 MG; Start 07/15/16 at 09:00 Enoxaparin Sodium (Lovenox) 40 mg DAILY SC Last administered on 07/17/16 08:15 ; Admin Dose 40 MG; Start 07/15/16 at 12:00 Miscellaneous Information 1 ea NOTE XX ; Start 07/15/16 at 17:00 Glucose (Glutose) 15 gm Q15M PRN PO DECREASED GLUCOSE; Start 07/15/16 at 17:00 Glucose (Glutose) 22.5 gm Q15M PRN PO DECREASED GLUCOSE; Start 07/15/16 at 17: 00 Dextrose (D50w Syringe) 25 ml Q15M PRN IV DECREASED GLUCOSE; Start 07/15/16 at 17:00 Dextrose (D50w Syringe) 50 ml Q15M PRN IV DECREASED GLUCOSE; Start 07/15/16 at 17:00 Glucagon (Glucagen) 1 mg Q15M PRN IM DECREASED GLUCOSE; Start 07/15/16 at 17:00 Glucose (Glutose) 15 gm Q15M PRN BUCCAL DECREASED GLUCOSE; Start 07/15/16 at 17 :00 Atorvastatin Calcium (Lipitor) 80 mg HS PO Last administered on 07/16/16 20:50 ; Admin Dose 80 MG; Start 07/15/16 at 21:00 Aspirin (Halfprin) 81 mg DAILY PO Last administered on 07/17/16 08:27; Admin Dose 81 MG; Start 07/16/16 at 09:00 Clopidogrel Bisulfate (plaVIX) 75 mg DAILY NGT Last administered on 07/17/16 08 :27; Admin Dose 75 MG; Start 07/16/16 at 09:00 Insulin Glargine (Lantus) 20 unit DAILY@08 SC Last administered on 07/17/16 08: 15; Admin Dose 20 UNIT; Start 07/17/16 at 08:00 Amlodipine Besylate (Norvasc) 10 mg DAILY PO Last administered on 07/17/16 08: 29; Admin Dose 10 MG; Start 07/16/16 at 14:00 Carvedilol (Coreg) 6.25 mg BID PO Last administered on 07/17/16 08:29; Admin Dose 6.25 MG; Start 07/16/16 at 14:00 Losartan Potassium (Cozaar) 50 mg BID PO Last administered on 07/17/16 08:29; Admin Dose 50 MG; Start 07/16/16 at 14:00 Labetalol HCl (Labetalol) 20 mg Q2H PRN IV sbp >170; Start 07/16/16 at 14:00 Assessment/Plan Chief Complaint/Hosp Course PHYSICAL EXAMINATION: GENERAL: He is not in acute distress, lying in bed. HEENT: Normocephalic, atraumatic head. NECK: No carotid bruits. No thyromegaly. LUNGS: Clear to auscultation bilaterally. CARDIAC: Normal cardiac rhythm and sounds. ABDOMEN: Soft. EXTREMITIES: No cyanosis, clubbing, or edema. NEUROLOGIC: He is awake, alert, and oriented x2. Somewhat slurred speech. Cranial nerve examination shows intact visual urbano to visual threat bilaterally. Pupils post-surgical, but reactive around 2 mm. Extraocular movements seem to be intact. Slightly asymmetrical face with right nasolabial fold flattening, but no definite weakness when he tries to smile and close his eyes. Sensory examination intact on the face. Tongue is in midline. Motor strength examination seems to be preserved. No pronator drift in upper extremities. Weakness in the right leg about 3/5 noticed. Sensory examination grossly intact in the extremities. Deep tendon reflexes 2+ upper extremities, absent lower extremities. Upgoing toes bilaterally. Coordination preserved when he is reaching for objects. No dysmetria or tremor. IMPRESSION: Acute ischemic stroke in 2 locations, according to MRI report, in the right medulla and right sequeira radiata. PLAN: Keep patient euglycemic, normotensive. Lipitor 80 mg at bedtime. Plavix and aspirin. PT/OT. Meclizine Problems: SON JOHNSON MD Jul 17, 2016 18:23
[2016-07-17] MEDS: ATORVASTATIN 80 MG TAB PO SCH (20:32)
[2016-07-17] MEDS: MECLIZINE 12.5 MG TAB PO SCH (20:32)
[2016-07-18] VITALS (35 sets, daily range): BP systolic 128–186; BP diastolic 67–102; PULSE 71–96; RESP 7–27
[2016-07-18 05:52] LABS: ADD SCAN DIFF NO
[2016-07-18 06:12] LABS: BASOPHILS % 0.5 % (0.0-2.0); EOSINOPHILS # 0.2 10^3/ul (0.0-0.5); EOSINOPHILS % 3.2 % (0.0-7.0); HEMATOCRIT 40.9 % (42.0-52.0); HEMOGLOBIN 14.1 g/dl (14.0-18.0); LYMPHOCYTES # 2.3 10^3/ul (0.8-2.9); LYMPHOCYTES % 30.1 % (15.0-51.0); MEAN CORPUSCULAR HEMOGLOBIN 30.2 pg (29.0-33.0); MEAN CORPUSCULAR HGB CONC 34.5 g/dl (32.0-37.0); MEAN CORPUSCULAR VOLUME 87.6 fl (82.0-101.0); MEAN PLATELET VOLUME 9.3 fl (7.4-10.4); MONOCYTE # 0.8 10^3/ul (0.3-0.9); NEUTROPHIL # 4.2 10^3/ul (1.6-7.5); NEUTROPHILS % 55.8 % (39.0-77.0); PLATELET COUNT 183 10^3/UL (140-415); RED BLOOD COUNT 4.67 10^6/ul (4.70-6.10); RED CELL DISTRIBUTION WIDTH 12.4 % (11.5-14.5); WHITE BLOOD COUNT 7.5 10^3/ul (4.8-10.8)
[2016-07-18 06:28] LABS: ALBUMIN 3.4 g/dl (3.3-4.9)
[2016-07-18 06:29] LABS: POTASSIUM 3.7 mmol/L (3.5-5.1)
[2016-07-18 06:31] LABS: ALBUMIN/GLOBULIN RATIO 0.94; BILIRUBIN,INDIRECT 0.6 mg/dl (0-1.1); BILIRUBIN,TOTAL 0.6 mg/dl (0.2-1.3); CREATININE 0.94 mg/dl (0.61-1.24)
[2016-07-18 06:32] LABS: CALCIUM 8.8 mg/dl (8.4-10.2)
[2016-07-18] MEDS: INSULIN GLARGINE [LANtus] 3 ML PEN SC SCH (07:57)
[2016-07-18] MEDS: INSULIN ASPART [NOVOLOG] 3 ML PEN SC SCH ×7 (07:57→20:48)
[2016-07-18] MEDS: CLOPIDOGREL 75 MG TAB NGT SCH (08:18)
[2016-07-18] MEDS: ASPIRIN (EC) 81 MG TAB PO SCH (08:18)
[2016-07-18] MEDS: MECLIZINE 12.5 MG TAB PO SCH ×3 (08:18→20:38)
[2016-07-18] MEDS: LOSARTAN 50 MG TAB PO SCH ×2 (08:19→20:38)
[2016-07-18] MEDS: AMLODIPINE 10 MG TAB PO SCH (08:19)
[2016-07-18] MEDS: FAMOTIDINE 20 MG INJ IV SCH ×2 (08:32→20:38)
[2016-07-18] MEDS: ENOXAPARIN 40 MG/0.4 ML SYG SC SCH (08:33)
[2016-07-18] MEDS: CHLORTHALIDONE 25 MG TAB PO SCH (12:21)
--- NOTE | 2016-07-18 14:54 | PN ---
Date/Time of Note Date/Time of Note DATE: 07/18/16 TIME: 14:52 Assessment/Plan VTE Prophylaxis VTE Prophylaxis Intervention: SCD's Lines/Catheters IV Catheter Type (from Nrs): Peripheral IV Assessment/Plan Chief Complaint/Hosp Course 1. Acute ischemic stroke -MRI Brain shows a 1.5 cm focus of acute/recent infarct in the right posterior frontal lobe. Smaller 6 mm focus of acute/recent of a in the right posterior medulla -cont ASA, Plavix and Statin -Neuro consult appreciated, PT, Rehab eval 2. Hypertensive Emergency-Improved -now off cardene drip -cont Home Rx and have started a Thiazide as BP still elevated 3. Type II DM - uncontrolled -A1C at 10.6 -Increase Insulin 4. CAD s/p PCI -cont ASA and Plavix 5. Hypothyroidism -c/w synthroid -TSH is WNL's 6. Hx of Non-compliance - long conversation with patient held for taking Rx 7. Hyperlipidemia - lipid panel - statin therapy -LDL>160 -cont Statin PPx- SCD's Problems: Subjective 24 Hr Interval Summary Constitutional: no complaints Exam/Review of Systems Vital Signs Vitals Vital Signs Date Time Temp Pulse Resp B/P Pulse Ox O2 Delivery O2 Flow Rate FiO2 07/18/16 12:00 76 07/18/16 11:00 159/83 89 Room Air 07/18/16 10:30 12 07/18/16 08:00 98.5 07/17/16 08:00 2.0 07/16/16 09:58 21 Intake and Output 07/17/16 07/17/16 07/18/16 15:00 23:00 07:00 Intake Total 300 ml 240 ml 100 ml Output Total 513 ml 546 ml 720 ml Balance -213 ml -306 ml -620 ml Exam Constitutional: alert Respiratory: clear to auscultation Cardiovascular: regular rate and rhythm Gastrointestinal: soft, No distended Musculoskeletal: nl extremities to inspection Results Result Diagram: 07/18/16 0512 07/18/16 0512 Results 24 hrs Laboratory Tests Test 07/17/16 17:15 07/17/16 20:30 07/18/16 05:12 07/18/16 07:52 Bedside Glucose 110 164 141 Alanine Aminotransferase (ALT/SGPT) 30 Albumin 3.4 Albumin/Globulin Ratio 0.94 Alkaline Phosphatase 77 Anion Gap 15 Aspartate Amino Transf (AST/SGOT) 18 Basophils # 0.0 Basophils % 0.5 Blood Urea Nitrogen 13 Calcium Level 8.8 Carbon Dioxide Level 28 Chloride Level 104 Creatinine 0.94 Direct Bilirubin 0.00 Eosinophils # 0.2 Eosinophils % 3.2 Globulin 3.60 H Glucose Level 136 # Hematocrit 40.9 L Hemoglobin 14.1 Indirect Bilirubin 0.6 Lymphocytes # 2.3 Lymphocytes % 30.1 Mean Corpuscular Hemoglobin 30.2 Mean Corpuscular Hemoglobin Concent 34.5 Mean Corpuscular Volume 87.6 Mean Platelet Volume 9.3 Monocytes # 0.8 Monocytes % 10.0 Neutrophils # 4.2 Neutrophils % 55.8 Nucleated Red Blood Cells # 0.0 Nucleated Red Blood Cells % 0.0 Platelet Count 183 Potassium Level 3.7 Red Blood Count 4.67 L Red Cell Distribution Width 12.4 Sodium Level 143 Total Bilirubin 0.6 Total Protein 7.0 White Blood Count 7.5 # Test 07/18/16 11:49 Bedside Glucose 196 Medications Medications Current Medications Flumazenil (Romazicon) 0.2 mg Q1M PRN IV BENZODIAZEPINE OVERDOSE; Start at 00:00 Ondansetron HCl (Zofran Inj) 4 mg Q6H PRN IV NAUSEA AND/OR VOMITING Last administered on 07/17/16 08:44; Admin Dose 4 MG; Start 07/15/16 at 00:00 Nitroglycerin (Nitroglycerin (Sl Tab) 0.4 Mg) 1 tab Q5M PRN SL CHEST PAIN; Start 07/15/16 at 00:00 Acetaminophen (Tylenol Supp) 650 mg Q4H PRN [place] PAIN LEVEL 1-3 OR FEVER; Start 07/15/16 at 00:00 Morphine Sulfate (morphine) 2 mg Q4H PRN IV PAIN LEVEL 7-10; Start 07/15/16 at 00:00 Lorazepam (Ativan) 1 mg Q2H PRN IV ANXIETY; Start 07/15/16 at 00:00 Bisacodyl (Dulcolax Supp) 10 mg DAILY PRN OR CONSTIPATION; Start 07/15/16 at 00 :00 Famotidine (Pepcid Iv) 20 mg Q12 IV Last administered on 07/18/16 08:32; Admin Dose 20 MG; Start 07/15/16 at 09:00 Enoxaparin Sodium (Lovenox) 40 mg DAILY SC Last administered on 07/18/16 08:33 ; Admin Dose 40 MG; Start 07/15/16 at 12:00 Miscellaneous Information 1 ea NOTE XX ; Start 07/15/16 at 17:00 Glucose (Glutose) 15 gm Q15M PRN PO DECREASED GLUCOSE; Start 07/15/16 at 17:00 Glucose (Glutose) 22.5 gm Q15M PRN PO DECREASED GLUCOSE; Start 07/15/16 at 17: 00 Dextrose (D50w Syringe) 25 ml Q15M PRN IV DECREASED GLUCOSE; Start 07/15/16 at 17:00 Dextrose (D50w Syringe) 50 ml Q15M PRN IV DECREASED GLUCOSE; Start 07/15/16 at 17:00 Glucagon (Glucagen) 1 mg Q15M PRN IM DECREASED GLUCOSE; Start 07/15/16 at 17:00 Glucose (Glutose) 15 gm Q15M PRN BUCCAL DECREASED GLUCOSE; Start 07/15/16 at 17 :00 Atorvastatin Calcium (Lipitor) 80 mg HS PO Last administered on 07/17/16 20:32 ; Admin Dose 80 MG; Start 07/15/16 at 21:00 Aspirin (Halfprin) 81 mg DAILY PO Last administered on 07/18/16 08:18; Admin Dose 81 MG; Start 07/16/16 at 09:00 Clopidogrel Bisulfate (plaVIX) 75 mg DAILY NGT Last administered on 07/18/16 08 :18; Admin Dose 75 MG; Start 07/16/16 at 09:00 Insulin Glargine (Lantus) 20 unit DAILY@08 SC Last administered on 07/18/16 07: 57; Admin Dose 20 UNIT; Start 07/17/16 at 08:00 Amlodipine Besylate (Norvasc) 10 mg DAILY PO Last administered on 07/18/16 08: 19; Admin Dose 10 MG; Start 07/16/16 at 14:00 Carvedilol (Coreg) 6.25 mg BID PO Last administered on 07/18/16 08:19; Admin Dose 6.25 MG; Start 07/16/16 at 14:00 Losartan Potassium (Cozaar) 50 mg BID PO Last administered on 07/18/16 08:19; Admin Dose 50 MG; Start 07/16/16 at 14:00 Labetalol HCl (Labetalol) 20 mg Q2H PRN IV sbp >170 Last administered on 06:26; Admin Dose 20 MG; Start 07/16/16 at 14:00 Meclizine HCl (Antivert) 12.5 mg TID PO Last administered on 07/18/16 14:05; Admin Dose 12.5 MG; Start 07/17/16 at 21:00 Chlorthalidone (Hygroton) 25 mg DAILY PO Last administered on 07/18/16 12:21; Admin Dose 25 MG; Start 07/18/16 at 11:00 PRINCE NOWAK Jul 18, 2016 14:54
[2016-07-18] MEDS: ATORVASTATIN 80 MG TAB PO SCH (20:39)
[2016-07-18] MEDS: LORAZEPAM 2 MG INJ IV PRN (23:07)
[2016-07-19] MEDS: LORAZEPAM 2 MG INJ IV PRN (02:57)
[2016-07-19] MEDS ORDERED: HALOPERIDOL 5 MG INJ IM ONE (06:00)
[2016-07-19 08:16] VITALS: BP 217/116; RESP 76
[2016-07-19] MEDS: AMLODIPINE 10 MG TAB PO SCH (08:17)
[2016-07-19] MEDS: CHLORTHALIDONE 25 MG TAB PO SCH (08:18)
[2016-07-19] MEDS: LOSARTAN 50 MG TAB PO SCH ×2 (08:18→20:13)
[2016-07-19] MEDS: FAMOTIDINE 20 MG INJ IV SCH (08:42)
[2016-07-19] MEDS: INSULIN ASPART [NOVOLOG] 3 ML PEN SC SCH ×7 (08:46→20:25)
[2016-07-19] MEDS: ENOXAPARIN 40 MG/0.4 ML SYG SC SCH (08:49)
[2016-07-19] MEDS: INSULIN GLARGINE [LANtus] 3 ML PEN SC SCH (08:51)
[2016-07-19] MEDS: ASPIRIN (EC) 81 MG TAB PO SCH (08:52)
[2016-07-19] MEDS: CLOPIDOGREL 75 MG TAB NGT SCH (08:52)
[2016-07-19] MEDS: MECLIZINE 12.5 MG TAB PO SCH ×3 (08:52→20:14)
[2016-07-19] MEDS: hydrALAzine 20 MG INJ IV PRN (08:56)
[2016-07-19] MEDS ORDERED: hydrALAzine 20 MG INJ IV SCH (09:00)
[2016-07-19] MEDS ORDERED: INFLUENZA VIRUS VACCINE 0.5 ML (DISPENSING) IM* ONE (09:00)
[2016-07-19 09:30] VITALS: BP 150/106; PULSE 82; RESP 18
[2016-07-19 10:00] VITALS: BP 118/60; PULSE 77; RESP 16
[2016-07-19 11:00] VITALS: BP 127/60; PULSE 85; RESP 18
--- NOTE | 2016-07-19 14:32 | PN ---
Date/Time of Note Date/Time of Note DATE: 07/19/16 TIME: 14:29 Assessment/Plan VTE Prophylaxis VTE Prophylaxis Intervention: SCD's Lines/Catheters IV Catheter Type (from Nrs): [place] Assessment/Plan Chief Complaint/Hosp Course 1. Acute ischemic stroke -MRI Brain shows a 1.5 cm focus of acute/recent infarct in the right posterior frontal lobe. Smaller 6 mm focus of acute/recent of a in the right posterior medulla -cont ASA, Plavix and Statin -Neuro consult appreciated, PT, Rehab eval 2. Hypertensive Emergency-Improved but still elevated -now off cardene drip -cont Home Rx and have started a Thiazide as BP still elevated, increase Coreg to 12.5 BID 3. Type II DM - uncontrolled -A1C at 10.6 -Increased Insulin today 4. CAD s/p PCI -cont ASA and Plavix 5. Hypothyroidism -c/w synthroid -TSH is WNL's 6. Hx of Non-compliance - long conversation with patient held for taking Rx 7. Hyperlipidemia - lipid panel - statin therapy -LDL>160 -cont Statin PPx- SCD's Problems: Subjective 24 Hr Interval Summary Constitutional: disoriented Exam/Review of Systems Vital Signs Vitals Vital Signs Date Time Temp Pulse Resp B/P Pulse Ox O2 Delivery O2 Flow Rate FiO2 07/19/16 08:16 97.5 95 76 217/116 93 07/18/16 18:00 Room Air 07/17/16 08:00 2.0 07/16/16 09:58 21 Intake and Output 07/18/16 07/18/16 07/19/16 15:00 23:00 07:00 Intake Total 350 ml 480 ml Output Total 760 ml 575 ml 1550 ml Balance -410 ml -575 ml -1070 ml Exam Psych: confusion Respiratory: clear to auscultation Cardiovascular: regular rate and rhythm Gastrointestinal: soft, No distended Musculoskeletal: nl extremities to inspection Results Result Diagram: 07/18/16 0512 07/18/16 05 Results 24 hrs Laboratory Tests Test 07/18/16 17:45 07/18/16 20:34 07/19/16 08:01 07/19/16 11:55 Bedside Glucose 203 202 230 H 207 Medications Medications Current Medications Flumazenil (Romazicon) 0.2 mg Q1M PRN IV BENZODIAZEPINE OVERDOSE; Start at 00:00 Ondansetron HCl (Zofran Inj) 4 mg Q6H PRN IV NAUSEA AND/OR VOMITING Last administered on 07/17/16 08:44; Admin Dose 4 MG; Start 07/15/16 at 00:00 Nitroglycerin (Nitroglycerin (Sl Tab) 0.4 Mg) 1 tab Q5M PRN SL CHEST PAIN; Start 07/15/16 at 00:00 Acetaminophen (Tylenol Supp) 650 mg Q4H PRN [place] PAIN LEVEL 1-3 OR FEVER; Start 07/15/16 at 00:00 Morphine Sulfate (morphine) 2 mg Q4H PRN IV PAIN LEVEL 7-10; Start 07/15/16 at 00:00 Lorazepam (Ativan) 1 mg Q2H PRN IV ANXIETY Last administered on 07/19/16 02:57 ; Admin Dose 2 MG; Start 07/15/16 at 00:00 Bisacodyl (Dulcolax Supp) 10 mg DAILY PRN [place] CONSTIPATION; Start 07/15/16 at 00 :00 Enoxaparin Sodium (Lovenox) 40 mg DAILY SC Last administered on 07/19/16 08:49 ; Admin Dose 40 MG; Start 07/15/16 at 12:00 Miscellaneous Information 1 ea NOTE XX ; Start 07/15/16 at 17:00 Glucose (Glutose) 15 gm Q15M PRN PO DECREASED GLUCOSE; Start 07/15/16 at 17:00 Glucose (Glutose) 22.5 gm Q15M PRN PO DECREASED GLUCOSE; Start 07/15/16 at 17: 00 Dextrose (D50w Syringe) 25 ml Q15M PRN IV DECREASED GLUCOSE; Start 07/15/16 at 17:00 Dextrose (D50w Syringe) 50 ml Q15M PRN IV DECREASED GLUCOSE; Start 07/15/16 at 17:00 Glucagon (Glucagen) 1 mg Q15M PRN IM DECREASED GLUCOSE; Start 07/15/16 at 17:00 Glucose (Glutose) 15 gm Q15M PRN BUCCAL DECREASED GLUCOSE; Start 07/15/16 at 17 :00 Atorvastatin Calcium (Lipitor) 80 mg HS PO Last administered on 07/18/16 20:39 ; Admin Dose 80 MG; Start 07/15/16 at 21:00 Aspirin (Halfprin) 81 mg DAILY PO Last administered on 07/19/16 08:52; Admin Dose 81 MG; Start 07/16/16 at 09:00 Clopidogrel Bisulfate (plaVIX) 75 mg DAILY NGT Last administered on 07/19/16 08 :52; Admin Dose 75 MG; Start 07/16/16 at 09:00 Amlodipine Besylate (Norvasc) 10 mg DAILY PO Last administered on 07/19/16 08: 17; Admin Dose 10 MG; Start 07/16/16 at 14:00 Carvedilol (Coreg) 6.25 mg BID PO Last administered on 07/19/16 08:17; Admin Dose 6.25 MG; Start 07/16/16 at 14:00 Losartan Potassium (Cozaar) 50 mg BID PO Last administered on 07/19/16 08:18; Admin Dose 50 MG; Start 07/16/16 at 14:00 Labetalol HCl (Labetalol) 20 mg Q2H PRN IV sbp >170 Last administered on 06:26; Admin Dose 20 MG; Start 07/16/16 at 14:00 Meclizine HCl (Antivert) 12.5 mg TID PO Last administered on 07/19/16 12:00; Admin Dose 12.5 MG; Start 07/17/16 at 21:00 Chlorthalidone (Hygroton) 25 mg DAILY PO Last administered on 07/19/16 08:18; Admin Dose 25 MG; Start 07/18/16 at 11:00 Insulin Glargine (Lantus) 24 unit DAILY@08 SC Last administered on 07/19/16 08: 51; Admin Dose 24 UNIT; Start 07/19/16 at 08:00 Hydralazine HCl (Apresoline) 10 mg Q2H PRN IV SBP > 170 Last administered on 08:56; Admin Dose 10 MG; Start 07/19/16 at 09:00 Influenza Virus Vaccine (Fluzone) 0.5 ml ONCE ONCE IM* ; Start 07/21/16 at 09:30 ; Stop 07/21/16 at 09:31 Famotidine (Pepcid) 20 mg BID PO ; Start 07/19/16 at 21:00 PRINCE NOWAK Jul 19, 2016 14:32
[2016-07-19 19:30] VITALS: BP 145/79; RESP 20
[2016-07-19] MEDS: FAMOTIDINE 20 MG TAB PO SCH (20:14)
[2016-07-19] MEDS: ATORVASTATIN 80 MG TAB PO SCH (20:14)
[2016-07-20 03:50] VITALS: BP 142/73; PULSE 78
[2016-07-20 05:32] LABS: ADD SCAN DIFF NO
[2016-07-20 05:52] LABS: BASOPHILS % 0.4 % (0.0-2.0); EOSINOPHILS # 0.3 10^3/ul (0.0-0.5); EOSINOPHILS % 2.9 % (0.0-7.0); HEMATOCRIT 46.5 % (42.0-52.0); HEMOGLOBIN 16.1 g/dl (14.0-18.0); LYMPHOCYTES # 2.4 10^3/ul (0.8-2.9); LYMPHOCYTES % 21.9 % (15.0-51.0); MEAN CORPUSCULAR HEMOGLOBIN 30.6 pg (29.0-33.0); MEAN CORPUSCULAR HGB CONC 34.6 g/dl (32.0-37.0); MEAN CORPUSCULAR VOLUME 88.4 fl (82.0-101.0); MEAN PLATELET VOLUME 9.2 fl (7.4-10.4); MONOCYTE # 1.2 10^3/ul (0.3-0.9); MONOCYTES % 10.6 % (0.0-11.0); NEUTROPHILS % 63.7 % (39.0-77.0); PLATELET COUNT 220 10^3/UL (140-415); RED BLOOD COUNT 5.26 10^6/ul (4.70-6.10); RED CELL DISTRIBUTION WIDTH 12.6 % (11.5-14.5); WHITE BLOOD COUNT 10.9 10^3/ul (4.8-10.8)
[2016-07-20 06:22] LABS: POTASSIUM 3.4 mmol/L (3.5-5.1)
[2016-07-20 06:24] LABS: CREATININE 1.31 mg/dl (0.61-1.24)
[2016-07-20 06:25] LABS: CALCIUM 9.5 mg/dl (8.4-10.2)
[2016-07-20] MEDS: ASPIRIN (EC) 81 MG TAB PO SCH (08:34)
[2016-07-20] MEDS: MECLIZINE 12.5 MG TAB PO SCH ×3 (08:34→21:49)
[2016-07-20] MEDS: CLOPIDOGREL 75 MG TAB NGT SCH (08:35)
[2016-07-20] MEDS: FAMOTIDINE 20 MG TAB PO SCH ×2 (08:36→21:44)
[2016-07-20] MEDS: INSULIN ASPART [NOVOLOG] 3 ML PEN SC SCH ×7 (08:38→21:00)
[2016-07-20] MEDS: INSULIN GLARGINE [LANtus] 3 ML PEN SC SCH (08:39)
[2016-07-20] MEDS: ENOXAPARIN 40 MG/0.4 ML SYG SC SCH (08:41)
[2016-07-20] MEDS: AMLODIPINE 10 MG TAB PO SCH (08:41)
[2016-07-20] MEDS: LOSARTAN 50 MG TAB PO SCH ×2 (08:41→21:46)
[2016-07-20] MEDS: CHLORTHALIDONE 25 MG TAB PO SCH (08:41)
[2016-07-20 08:52] VITALS: BP 118/65; PULSE 76; RESP 18
[2016-07-20] MEDS ORDERED: POTASSIUM CHLORIDE (SR) 20 MEQ TAB PO STA (11:55)
--- NOTE | 2016-07-20 17:22 | PN ---
Date/Time of Note Date/Time of Note DATE: 07/20/16 TIME: 17:21 Assessment/Plan VTE Prophylaxis VTE Prophylaxis Intervention: SCD's Lines/Catheters IV [facility] Saline Lock Assessment/Plan Chief Complaint/Hosp Course 1. Acute ischemic stroke -MRI Brain shows a 1.5 cm focus of acute/recent infarct in the right posterior frontal lobe. Smaller 6 mm focus of acute/recent of a in the right posterior medulla -cont ASA, Plavix and Statin -Neuro consult appreciated, PT, Rehab eval 2. Hypertensive Emergency-Improved but still elevated -now off cardene drip -cont Home Rx and have started a Thiazide and increased Coreg to 12.5 BID, cont current regimen 3. Type II DM - uncontrolled -A1C at 10.6 -Increased Insulin today 4. CAD s/p PCI -cont ASA and Plavix 5. Hypothyroidism -c/w synthroid -TSH is WNL's 6. Hx of Non-compliance - long conversation with patient held for taking Rx 7. Hyperlipidemia - lipid panel - statin therapy -LDL>160 -cont Statin PPx- SCD's Problems: Subjective 24 Hr Interval Summary Constitutional: no complaints Exam/Review of Systems Vital Signs Vitals Vital Signs Date Time Temp Pulse Resp B/P Pulse Ox O2 Delivery O2 Flow Rate FiO2 07/20/16 08:52 97.9 76 18 118/65 96 Room Air 07/17/16 08:00 2.0 07/16/16 09:58 21 Intake and Output 07/19/16 07/19/16 07/20/16 15:00 23:00 07:00 Intake Total 480 ml 200 ml Output Total 700 ml 400 ml Balance -220 ml -200 ml Exam Constitutional: alert Respiratory: clear to auscultation Cardiovascular: regular rate and rhythm Gastrointestinal: soft, No distended Musculoskeletal: nl extremities to inspection Results Result Diagram: 07/20/16 0514 07/20/16 0514 Results 24 hrs Laboratory Tests Test 07/19/16 20:20 07/20/16 02:53 07/20/16 05:14 07/20/16 08:07 Bedside Glucose 185 123 145 Anion Gap 16 Basophils # 0.0 Basophils % 0.4 Blood Urea Nitrogen 22 H Calcium Level 9.5 Carbon Dioxide Level 28 Chloride Level 101 Creatinine 1.31 H Eosinophils # 0.3 Eosinophils % 2.9 Glucose Level 134 Hematocrit 46.5 Hemoglobin 16.1 Lymphocytes # 2.4 Lymphocytes % 21.9 Mean Corpuscular Hemoglobin 30.6 Mean Corpuscular Hemoglobin Concent 34.6 Mean Corpuscular Volume 88.4 Mean Platelet Volume 9.2 Monocytes # 1.2 H Monocytes % 10.6 Neutrophils # 7.0 Neutrophils % 63.7 Nucleated Red Blood Cells # 0.0 Nucleated Red Blood Cells % 0.0 Platelet Count 220 # Potassium Level 3.4 L Red Blood Count 5.26 Red Cell Distribution Width 12.6 Sodium Level 142 White Blood Count 10.9 #H Test 07/20/16 12:10 07/20/16 12:12 Bedside Glucose 323 H 314 H Medications Medications Current Medications Flumazenil (Romazicon) 0.2 mg Q1M PRN IV BENZODIAZEPINE OVERDOSE; Start at 00:00 Ondansetron HCl (Zofran Inj) 4 mg Q6H PRN IV NAUSEA AND/OR VOMITING Last administered on 07/17/16 08:44; Admin Dose 4 MG; Start 07/15/16 at 00:00 Nitroglycerin (Nitroglycerin (Sl Tab) 0.4 Mg) 1 tab Q5M PRN SL CHEST PAIN; Start 07/15/16 at 00:00 Acetaminophen (Tylenol Supp) 650 mg Q4H PRN [place] PAIN LEVEL 1-3 OR FEVER; Start 07/15/16 at 00:00 Morphine Sulfate (morphine) 2 mg Q4H PRN IV PAIN LEVEL 7-10; Start 07/15/16 at 00:00 Lorazepam (Ativan) 1 mg Q2H PRN IV ANXIETY Last administered on 07/19/16 02:57 ; Admin Dose 2 MG; Start 07/15/16 at 00:00 Bisacodyl (Dulcolax Supp) 10 mg DAILY PRN [place] CONSTIPATION; Start 07/15/16 at 00 :00 Enoxaparin Sodium (Lovenox) 40 mg DAILY SC Last administered on 07/20/16 08:41 ; Admin Dose 40 MG; Start 07/15/16 at 12:00 Miscellaneous Information 1 ea NOTE XX ; Start 07/15/16 at 17:00 Glucose (Glutose) 15 gm Q15M PRN PO DECREASED GLUCOSE; Start 07/15/16 at 17:00 Glucose (Glutose) 22.5 gm Q15M PRN PO DECREASED GLUCOSE; Start 07/15/16 at 17: 00 Dextrose (D50w Syringe) 25 ml Q15M PRN IV DECREASED GLUCOSE; Start 07/15/16 at 17:00 Dextrose (D50w Syringe) 50 ml Q15M PRN IV DECREASED GLUCOSE; Start 07/15/16 at 17:00 Glucagon (Glucagen) 1 mg Q15M PRN IM DECREASED GLUCOSE; Start 07/15/16 at 17:00 Glucose (Glutose) 15 gm Q15M PRN BUCCAL DECREASED GLUCOSE; Start 07/15/16 at 17 :00 Atorvastatin Calcium (Lipitor) 80 mg HS PO Last administered on 07/19/16 20:14 ; Admin Dose 80 MG; Start 07/15/16 at 21:00 Aspirin (Halfprin) 81 mg DAILY PO Last administered on 07/20/16 08:34; Admin Dose 81 MG; Start 07/16/16 at 09:00 Clopidogrel Bisulfate (plaVIX) 75 mg DAILY NGT Last administered on 07/20/16 08 :35; Admin Dose 75 MG; Start 07/16/16 at 09:00 Amlodipine Besylate (Norvasc) 10 mg DAILY PO Last administered on 07/20/16 08: 41; Admin Dose 10 MG; Start 07/16/16 at 14:00 Losartan Potassium (Cozaar) 50 mg BID PO Last administered on 07/20/16 08:41; Admin Dose 50 MG; Start 07/16/16 at 14:00 Labetalol HCl (Labetalol) 20 mg Q2H PRN IV sbp >170 Last administered on 06:26; Admin Dose 20 MG; Start 07/16/16 at 14:00 Meclizine HCl (Antivert) 12.5 mg TID PO Last administered on 07/20/16 12:36; Admin Dose 12.5 MG; Start 07/17/16 at 21:00 Chlorthalidone (Hygroton) 25 mg DAILY PO Last administered on 07/20/16 08:41; Admin Dose 25 MG; Start 07/18/16 at 11:00 Insulin Glargine (Lantus) 24 unit DAILY@08 SC Last administered on 07/20/16 08: 39; Admin Dose 24 UNIT; Start 07/19/16 at 08:00 Hydralazine HCl (Apresoline) 10 mg Q2H PRN IV SBP > 170 Last administered on 08:56; Admin Dose 10 MG; Start 07/19/16 at 09:00 Influenza Virus Vaccine (Fluzone) 0.5 ml ONCE ONCE IM* ; Start 07/21/16 at 09:30 ; Stop 07/21/16 at 09:31 Famotidine (Pepcid) 20 mg BID PO Last administered on 07/20/16 08:36; Admin Dose 20 MG; Start 07/19/16 at 21:00 Carvedilol (Coreg) 12.5 mg BID PO Last administered on 07/20/16 08:37; Admin Dose 12.5 MG; Start 07/19/16 at 21:00 PRINCE NOWAK Jul 20, 2016 17:22
[2016-07-20 19:41] VITALS: BP 130/70; RESP 18
[2016-07-20] MEDS: ATORVASTATIN 80 MG TAB PO SCH (21:45)
[2016-07-21] MEDS: ACCUCHECK XX SCH (02:00)
[2016-07-21] MEDS ORDERED: ACCUCHECK XX SCH (02:00)
[2016-07-21 06:37] LABS: ADD SCAN DIFF NO
[2016-07-21 06:59] LABS: BASOPHILS % 0.4 % (0.0-2.0); EOSINOPHILS # 0.3 10^3/ul (0.0-0.5); EOSINOPHILS % 3.3 % (0.0-7.0); HEMATOCRIT 43.3 % (42.0-52.0); LYMPHOCYTES # 2.4 10^3/ul (0.8-2.9); LYMPHOCYTES % 24.9 % (15.0-51.0); MEAN CORPUSCULAR HEMOGLOBIN 30.4 pg (29.0-33.0); MEAN CORPUSCULAR HGB CONC 34.6 g/dl (32.0-37.0); MEAN CORPUSCULAR VOLUME 87.8 fl (82.0-101.0); MEAN PLATELET VOLUME 9.5 fl (7.4-10.4); MONOCYTE # 0.9 10^3/ul (0.3-0.9); MONOCYTES % 9.1 % (0.0-11.0); NEUTROPHIL # 5.8 10^3/ul (1.6-7.5); PLATELET COUNT 223 10^3/UL (140-415); RED BLOOD COUNT 4.93 10^6/ul (4.70-6.10); RED CELL DISTRIBUTION WIDTH 12.5 % (11.5-14.5); WHITE BLOOD COUNT 9.4 10^3/ul (4.8-10.8)
[2016-07-21 07:12] VITALS: BP 132/71; RESP 18
[2016-07-21 08:01] LABS: POTASSIUM 3.8 mmol/L (3.5-5.1)
[2016-07-21 08:03] LABS: CREATININE 1.37 mg/dl (0.61-1.24)
[2016-07-21 08:04] LABS: CALCIUM 9.3 mg/dl (8.4-10.2)
[2016-07-21] MEDS: MECLIZINE 12.5 MG TAB PO SCH ×3 (08:21→21:35)
[2016-07-21] MEDS: ASPIRIN (EC) 81 MG TAB PO SCH (08:21)
[2016-07-21] MEDS: FAMOTIDINE 20 MG TAB PO SCH ×2 (08:21→21:36)
[2016-07-21] MEDS: CLOPIDOGREL 75 MG TAB NGT SCH (08:22)
[2016-07-21] MEDS: CHLORTHALIDONE 25 MG TAB PO SCH (08:22)
[2016-07-21] MEDS: AMLODIPINE 10 MG TAB PO SCH (08:22)
[2016-07-21] MEDS: LOSARTAN 50 MG TAB PO SCH (08:23)
[2016-07-21] MEDS: INSULIN ASPART [NOVOLOG] 3 ML PEN SC SCH ×7 (08:28→21:00)
[2016-07-21] MEDS: INSULIN GLARGINE [LANtus] 3 ML PEN SC SCH (08:29)
[2016-07-21] MEDS: ENOXAPARIN 40 MG/0.4 ML SYG SC SCH (08:30)
[2016-07-21] MEDS ORDERED: INFLUENZA VIRUS VACCINE 0.5 ML (DISPENSING) IM* ONE (09:30)
[2016-07-21] MEDS: SOD CHLORIDE 0.45% 1,000 ML IV SCH ×3 (10:15→21:32)
[2016-07-21] MEDS ORDERED: SOD CHLORIDE 0.9% 500 ML IV ONE (12:00)
--- NOTE | 2016-07-21 14:42 | PN ---
Date/Time of Note Date/Time of Note DATE: 07/21/16 TIME: 14:35 Assessment/Plan VTE Prophylaxis VTE Prophylaxis Intervention: SCD's Lines/Catheters IV Catheter Type (from Nrs): Saline Lock Assessment/Plan Chief Complaint/Hosp Course 1. Acute ischemic stroke -MRI Brain shows a 1.5 cm focus of acute/recent infarct in the right posterior frontal lobe. Smaller 6 mm focus of acute/recent of a in the right posterior medulla -cont ASA, Plavix and Statin -Neuro consult appreciated, PT, Rehab eval, pt is unable to ambulate at this time and needs either SNF vs Rehab, CM to assist with placement 2. Hypertensive Emergency-now stable -s/p Cardene gtt -cont Home Rx but have held the ARB today 2/2 YRN and have started Hydralazine in it's place, cont Thiazide and Coreg 12.5 BID 3. Type II DM - uncontrolled -A1C at 10.6 -Increased Insulin today 4. CAD s/p PCI -cont ASA and Plavix 5. Hypothyroidism -c/w synthroid -TSH is WNL's 6. Hx of Non-compliance - long conversation with patient held for taking Rx 7. Hyperlipidemia - lipid panel - statin therapy -LDL>160 -cont Statin 8. YRN -Renal consult -DC Losartan and have started Hydralazine in it's place -IVF PPx- SCD's Problems: Subjective 24 Hr Interval Summary Constitutional: no complaints Exam/Review of Systems Vital Signs Vitals Vital Signs Date Time Temp Pulse Resp B/P Pulse Ox O2 Delivery O2 Flow Rate FiO2 07/21/16 07:12 98.9 77 18 132/71 92 07/20/16 08:52 Room Air 07/17/16 08:00 2.0 Intake and Output 07/20/16 07/20/16 07/21/16 15:00 23:00 07:00 Intake Total 740 ml 750 ml Output Total 500 ml 2050 ml Balance 240 ml -1300 ml Exam Constitutional: alert Respiratory: clear to auscultation Cardiovascular: regular rate and rhythm Gastrointestinal: soft, No distended Musculoskeletal: nl extremities to inspection Results Result Diagram: 07/21/16 0545 07/21/16 0454 Results 24 hrs Laboratory Tests Test 07/20/16 17:32 07/20/16 21:55 07/21/16 04:54 07/21/16 05:45 Bedside Glucose 85 123 Anion Gap 17 H Blood Urea Nitrogen 27 H Calcium Level 9.3 Carbon Dioxide Level 27 Chloride Level 101 Creatinine 1.37 H Glucose Level 148 Phosphorus Level 3.7 Potassium Level 3.8 Sodium Level 141 Basophils # 0.0 Basophils % 0.4 Eosinophils # 0.3 Eosinophils % 3.3 Hematocrit 43.3 Hemoglobin 15.0 Lymphocytes # 2.4 Lymphocytes % 24.9 Mean Corpuscular Hemoglobin 30.4 Mean Corpuscular Hemoglobin Concent 34.6 Mean Corpuscular Volume 87.8 Mean Platelet Volume 9.5 Monocytes # 0.9 Monocytes % 9.1 Neutrophils # 5.8 Neutrophils % 62.0 Nucleated Red Blood Cells # 0.0 Nucleated Red Blood Cells % 0.0 Platelet Count 223 Red Blood Count 4.93 Red Cell Distribution Width 12.5 White Blood Count 9.4 Test 07/21/16 07:57 07/21/16 12:14 07/21/16 12:15 Bedside Glucose 149 245 H 269 H Medications Medications Current Medications Flumazenil (Romazicon) 0.2 mg Q1M PRN IV BENZODIAZEPINE OVERDOSE; Start at 00:00 Ondansetron HCl (Zofran Inj) 4 mg Q6H PRN IV NAUSEA AND/OR VOMITING Last administered on 07/17/16 08:44; Admin Dose 4 MG; Start 07/15/16 at 00:00 Nitroglycerin (Nitroglycerin (Sl Tab) 0.4 Mg) 1 tab Q5M PRN SL CHEST PAIN; Start 07/15/16 at 00:00 Acetaminophen (Tylenol Supp) 650 mg Q4H PRN [place] PAIN LEVEL 1-3 OR FEVER; Start 07/15/16 at 00:00 Morphine Sulfate (morphine) 2 mg Q4H PRN IV PAIN LEVEL 7-10; Start 07/15/16 at 00:00 Lorazepam (Ativan) 1 mg Q2H PRN IV ANXIETY Last administered on 07/19/16 02:57 ; Admin Dose 2 MG; Start 07/15/16 at 00:00 Bisacodyl (Dulcolax Supp) 10 mg DAILY PRN [place] CONSTIPATION; Start 07/15/16 at 00 :00 Enoxaparin Sodium (Lovenox) 40 mg DAILY SC Last administered on 07/21/16 08:30 ; Admin Dose 40 MG; Start 07/15/16 at 12:00 Miscellaneous Information 1 ea NOTE XX ; Start 07/15/16 at 17:00 Glucose (Glutose) 15 gm Q15M PRN PO DECREASED GLUCOSE; Start 07/15/16 at 17:00 Glucose (Glutose) 22.5 gm Q15M PRN PO DECREASED GLUCOSE; Start 07/15/16 at 17: 00 Dextrose (D50w Syringe) 25 ml Q15M PRN IV DECREASED GLUCOSE; Start 07/15/16 at 17:00 Dextrose (D50w Syringe) 50 ml Q15M PRN IV DECREASED GLUCOSE; Start 07/15/16 at 17:00 Glucagon (Glucagen) 1 mg Q15M PRN IM DECREASED GLUCOSE; Start 07/15/16 at 17:00 Glucose (Glutose) 15 gm Q15M PRN BUCCAL DECREASED GLUCOSE; Start 07/15/16 at 17 :00 Atorvastatin Calcium (Lipitor) 80 mg HS PO Last administered on 07/20/16 21:45 ; Admin Dose 80 MG; Start 07/15/16 at 21:00 Aspirin (Halfprin) 81 mg DAILY PO Last administered on 07/21/16 08:21; Admin Dose 81 MG; Start 07/16/16 at 09:00 Clopidogrel Bisulfate (plaVIX) 75 mg DAILY NGT Last administered on 07/21/16 08 :22; Admin Dose 75 MG; Start 07/16/16 at 09:00 Amlodipine Besylate (Norvasc) 10 mg DAILY PO Last administered on 07/21/16 08: 22; Admin Dose 10 MG; Start 07/16/16 at 14:00 Labetalol HCl (Labetalol) 20 mg Q2H PRN IV sbp >170 Last administered on 06:26; Admin Dose 20 MG; Start 07/16/16 at 14:00 Meclizine HCl (Antivert) 12.5 mg TID PO Last administered on 07/21/16 12:31; Admin Dose 12.5 MG; Start 07/17/16 at 21:00 Chlorthalidone (Hygroton) 25 mg DAILY PO Last administered on 07/21/16 08:22; Admin Dose 25 MG; Start 07/18/16 at 11:00 Hydralazine HCl (Apresoline) 10 mg Q2H PRN IV SBP > 170 Last administered on 08:56; Admin Dose 10 MG; Start 07/19/16 at 09:00 Famotidine (Pepcid) 20 mg BID PO Last administered on 07/21/16 08:21; Admin Dose 20 MG; Start 07/19/16 at 21:00 Carvedilol (Coreg) 12.5 mg BID PO Last administered on 07/21/16 08:22; Admin Dose 12.5 MG; Start 07/19/16 at 21:00 Insulin Glargine (Lantus) 26 unit DAILY@08 SC Last administered on 07/21/16 08: 29; Admin Dose 26 UNIT; Start 07/21/16 at 08:00 Diagnostic Test (Pha) 1 ea 1 ea 02 XX ; Start 07/21/16 at 02:00 Sodium Chloride (1/2 NS) 1,000 ml @ 125 mls/hr Q8H IV Last administered on 07/21 10:15; Admin Dose 125 MLS/HR; Start 07/21/16 at 09:00; Stop 07/22/16 at 08: 59 Hydralazine HCl (Apresoline) 10 mg QID PO Last administered on 07/21/16 10:17; Admin Dose 10 MG; Start 07/21/16 at 09:00 PRINCE NOWAK Jul 21, 2016 14:42
[2016-07-21 15:55] LABS: ADD UMIC YES; URINE BILIRUBIN (Dip) NEGATIVE (NEGATIVE); URINE BLOOD (Dip) 1+ (NEGATIVE); URINE COLOR LT. YELLOW (YELLOW); URINE GLUCOSE (Dip) NEGATIVE (NEGATIVE); URINE KETONES (Dip) NEGATIVE (NEGATIVE); URINE LEUKOCYTE ESTERASE (Dip) 1+ (NEGATIVE); URINE NITRITE (Dip) NEGATIVE (NEGATIVE); URINE TOTAL PROTEIN (Dip) NEGATIVE (NEGATIVE); URINE UROBILINOGEN (Dip) 0.2 E.U./dL (0.1-1.0)
--- NOTE | 2016-07-21 15:58 | CONS ---
DATE OF ADMISSION: 07/15/2016 DATE OF CONSULTATION: 07/21/2016 REASON FOR CONSULTATION: Acute renal failure. HISTORY OF PRESENT ILLNESS: The patient is a 66-year-old male who was admitted on 07/15/2016 with a n acute cerebrovascular accident. The patient has a past medical history of multiple CVAs, as well as type 2 diabetes mellitus, hypertension, coronary artery disease, diastolic congestive heart failu re, hypothyroidism, and hyperlipidemia. He presented to the emergency room with right-sided weaknes s. An MRI revealed an acute CVA. On admission, the serum creatinine was normal at 0.83. It remain ed normal, but then ishaan to 1.31 yesterday, and then to 1.37 today. Review of the intake and output reveals the patient is in negative fluid balance. He currently is receiving IV fluids. He is on a thickened liquid diet. The patient's blood pressure initially was quite elevated, and it has now c ome under control with multiple antihypertensive medications. It also appears that the patient's bl ood sugar was poorly controlled, with an elevated hemoglobin A1c. Blood sugars are now well control led in the hospital. PAST MEDICAL HISTORY: CVA, coronary artery disease, type 2 diabetes mellitus, hyperlipidemia, hyper tension, hypothyroidism. PAST SURGICAL HISTORY: 1. Cataract surgery. 2. Kidney stone removal. SOCIAL HISTORY: Patient is a former smoker. He does not use alcohol. FAMILY HISTORY: Unobtainable. REVIEW OF SYSTEMS: Difficult to obtain to unobtainable. MEDICATIONS: 1. Hydralazine. 2. Lantus. 3. NovoLog. 4. Pepcid. 5. Carvedilol. 6. Chlorthalidone. 7. Meclizine. 8. Amlodipine. 9. Plavix. 10. Aspirin. 11. Lovenox. 12. Atorvastatin. PHYSICAL EXAMINATION: VITAL SIGNS: Blood pressure is 132/71, heart rate is 77, temperature is 98.9. GENERAL APPEARANCE: Reveals an elderly male in no acute distress. The patient is extremely letharg ic but arousable. He is able to answer some simple questions but not able to give much history. HEENT: Mouth revealed dry mucosa. NECK: Supple. There is no jugular venous distention. CHEST: Lungs clear to auscultation. HEART: Regular rhythm. Normal S1. Normal S2. There was no gallop or rub. ABDOMEN: Soft, nontender. EXTREMITIES: No peripheral edema. LABORATORY DATA: Sodium is 141, potassium 3.8, chloride is 101, CO2 is 27, BUN is 27, creatinine of 1.37. Random blood sugar is 148, calcium is 9.3, hemoglobin is 15.0, hematocrit is 43.3, white blo od cell count is 9400, platelet count is 223,000. Chest x-ray revealed probable cardiomegaly. Lung s were clear. IMPRESSION: 1. Acute kidney injury. Most likely, this is due to prerenal azotemia. The patient appears to be mildly volume depleted on physical exam and has been in negative fluid balance. He currently has a Guzman catheter in place, which is draining concentrated-appearing urine. 2. Status post cerebrovascular accident. 3. Hypertension, now controlled. 4. Diabetes mellitus, now controlled. 5. History of coronary artery disease. 6. History of hyperlipidemia. PLAN: 1. Normal saline bolus will be given. 2. Continue the current IV at 125 mL per hour. 3. Urine will be sent for urinalysis, sodium osmolality, and creatinine. 4. Continue current antihypertensive medications. 5. Further workup depending on the response to the fluid challenge. Dictated By: RUFINO DE LA TORRE/MAURO Conf#: [id number] DID#: [id number]
[2016-07-21 16:09] LABS: BACTERIA,URINE MODERATE; URINE RBCS 0-2 /HPF (0)
[2016-07-21 20:40] VITALS: BP 130/63; PULSE 76; RESP 19
[2016-07-21] MEDS: ATORVASTATIN 80 MG TAB PO SCH (21:36)
[2016-07-22] MEDS: ACCUCHECK XX SCH (02:00)
[2016-07-22] MEDS: SOD CHLORIDE 0.45% 1,000 ML IV SCH (03:36)
[2016-07-22 06:23] LABS: POTASSIUM 3.9 mmol/L (3.5-5.1)
[2016-07-22 06:26] LABS: CREATININE 1.11 mg/dl (0.61-1.24)
[2016-07-22 06:27] LABS: CALCIUM 9.1 mg/dl (8.4-10.2)
[2016-07-22 07:36] VITALS: BP 162/77; PULSE 73; RESP 18
[2016-07-22] MEDS: INSULIN ASPART [NOVOLOG] 3 ML PEN SC SCH ×7 (08:01→20:33)
[2016-07-22] MEDS: ENOXAPARIN 40 MG/0.4 ML SYG SC SCH (08:22)
[2016-07-22] MEDS: INSULIN GLARGINE [LANtus] 3 ML PEN SC SCH (08:22)
[2016-07-22] MEDS: ASPIRIN (EC) 81 MG TAB PO SCH (08:29)
[2016-07-22] MEDS: AMLODIPINE 10 MG TAB PO SCH (08:30)
[2016-07-22] MEDS: FAMOTIDINE 20 MG TAB PO SCH ×2 (08:30→20:32)
[2016-07-22] MEDS: CLOPIDOGREL 75 MG TAB NGT SCH (08:30)
[2016-07-22] MEDS: MECLIZINE 12.5 MG TAB PO SCH ×3 (08:31→20:33)
[2016-07-22] MEDS: CHLORTHALIDONE 25 MG TAB PO SCH (08:31)
--- NOTE | 2016-07-22 08:42 | CONS ---
Date/Time of Note Date/Time of Note DATE: 07/22/16 TIME: 08:36 Assessment/Plan Assessment/Plan Chief Complaint/Hosp Course 1. Acute Renal failure due to pre renal / volume depletion . His renal function is now normal after receiving IV fluids . I will decrease IV fluids . I will sign off and see again on request . Problems: Consultation Date/Type/Reason Admit Date/Time Jul 15, 2016 at 00:00 Initial Consult Date Type of Consultation: neurology 24 HR Interval Summary Free Text/Dictation Patient is awake and responsive . He ate breakfast . Exam/Review of Systems Vital Signs Vitals Vital Signs Date Time Temp Pulse Resp B/P Pulse Ox O2 Delivery O2 Flow Rate FiO2 07/22/16 07:36 97.9 73 18 162/77 98 Room Air Intake and Output 07/21/16 07/21/16 07/22/16 15:00 23:00 07:00 Intake Total 500 ml 2320 ml 1750 ml Output Total 2100 ml 180 ml Balance 500 ml 220 ml 1570 ml Exam Constitutional: alert Psych: no complaints Respiratory: clear to auscultation Cardiovascular: regular rate and rhythm Musculoskeletal: nl extremities to inspection Results Result Diagram: 07/21/16 0545 07/22/16 0520 Results 24 hrs Laboratory Tests Test 07/21/16 12:14 07/21/16 12:15 07/21/16 14:35 07/21/16 17:44 Bedside Glucose 245 H 269 H 106 Urine Bacteria MODERATE Urine Bilirubin NEGATIVE Urine Clarity SLIGHTLY HAZY Urine Color LT. YELLOW Urine Glucose NEGATIVE Urine Hemoglobin 1+ H Urine Ketones NEGATIVE Urine Leukocyte Esterase 1+ H Urine Microscopic RBC 0-2 Urine Microscopic WBC 0-2 Urine Nitrite NEGATIVE Urine Osmolality 177 L Urine Random Creatinine 34.35 Urine Random Sodium 26 L Urine Specific [place] <=1.005 L Urine Total Protein NEGATIVE Urine Urobilinogen 0.2 E.U./dL Urine Yeast MODERATE Urine pH 6.0 Test 07/21/16 21:34 07/22/16 05:20 07/22/16 08:00 Bedside Glucose 97 122 Anion Gap 15 Blood Urea Nitrogen 17 # Calcium Level 9.1 Carbon Dioxide Level 29 Chloride Level 102 Creatinine 1.11 Glucose Level 97 # Potassium Level 3.9 Sodium Level 142 Medications Medications Current Medications Flumazenil (Romazicon) 0.2 mg Q1M PRN IV BENZODIAZEPINE OVERDOSE; Start at 00:00 Ondansetron HCl (Zofran Inj) 4 mg Q6H PRN IV NAUSEA AND/OR VOMITING Last administered on 07/17/16 08:44; Admin Dose 4 MG; Start 07/15/16 at 00:00 Nitroglycerin (Nitroglycerin (Sl Tab) 0.4 Mg) 1 tab Q5M PRN SL CHEST PAIN; Start 07/15/16 at 00:00 Acetaminophen (Tylenol Supp) 650 mg Q4H PRN [place] PAIN LEVEL 1-3 OR FEVER; Start 07/15/16 at 00:00 Morphine Sulfate (morphine) 2 mg Q4H PRN IV PAIN LEVEL 7-10; Start 07/15/16 at 00:00 Lorazepam (Ativan) 1 mg Q2H PRN IV ANXIETY Last administered on 07/19/16 02:57 ; Admin Dose 2 MG; Start 07/15/16 at 00:00 Bisacodyl (Dulcolax Supp) 10 mg DAILY PRN [place] CONSTIPATION; Start 07/15/16 at 00 :00 Enoxaparin Sodium (Lovenox) 40 mg DAILY SC Last administered on 07/22/16 08:22 ; Admin Dose 40 MG; Start 07/15/16 at 12:00 Miscellaneous Information 1 ea NOTE XX ; Start 07/15/16 at 17:00 Glucose (Glutose) 15 gm Q15M PRN PO DECREASED GLUCOSE; Start 07/15/16 at 17:00 Glucose (Glutose) 22.5 gm Q15M PRN PO DECREASED GLUCOSE; Start 07/15/16 at 17: 00 Dextrose (D50w Syringe) 25 ml Q15M PRN IV DECREASED GLUCOSE; Start 07/15/16 at 17:00 Dextrose (D50w Syringe) 50 ml Q15M PRN IV DECREASED GLUCOSE; Start 07/15/16 at 17:00 Glucagon (Glucagen) 1 mg Q15M PRN IM DECREASED GLUCOSE; Start 07/15/16 at 17:00 Glucose (Glutose) 15 gm Q15M PRN BUCCAL DECREASED GLUCOSE; Start 07/15/16 at 17 :00 Atorvastatin Calcium (Lipitor) 80 mg HS PO Last administered on 07/21/16 21:36 ; Admin Dose 80 MG; Start 07/15/16 at 21:00 Aspirin (Halfprin) 81 mg DAILY PO Last administered on 07/22/16 08:29; Admin Dose 81 MG; Start 07/16/16 at 09:00 Clopidogrel Bisulfate (plaVIX) 75 mg DAILY NGT Last administered on 07/22/16 08 :30; Admin Dose 75 MG; Start 07/16/16 at 09:00 Amlodipine Besylate (Norvasc) 10 mg DAILY PO Last administered on 07/22/16 08: 30; Admin Dose 10 MG; Start 07/16/16 at 14:00 Labetalol HCl (Labetalol) 20 mg Q2H PRN IV sbp >170 Last administered on 06:26; Admin Dose 20 MG; Start 07/16/16 at 14:00 Meclizine HCl (Antivert) 12.5 mg TID PO Last administered on 07/22/16 08:31; Admin Dose 12.5 MG; Start 07/17/16 at 21:00 Chlorthalidone (Hygroton) 25 mg DAILY PO Last administered on 07/22/16 08:31; Admin Dose 25 MG; Start 07/18/16 at 11:00 Hydralazine HCl (Apresoline) 10 mg Q2H PRN IV SBP > 170 Last administered on 08:56; Admin Dose 10 MG; Start 07/19/16 at 09:00 Famotidine (Pepcid) 20 mg BID PO Last administered on 07/22/16 08:30; Admin Dose 20 MG; Start 07/19/16 at 21:00 Carvedilol (Coreg) 12.5 mg BID PO Last administered on 07/22/16 08:30; Admin Dose 12.5 MG; Start 07/19/16 at 21:00 Insulin Glargine (Lantus) 26 unit DAILY@08 SC Last administered on 07/22/16 08: 22; Admin Dose 26 UNIT; Start 07/21/16 at 08:00 Diagnostic Test (Pha) 1 ea 1 ea 02 XX ; Start 07/21/16 at 02:00 Sodium Chloride (1/2 NS) 1,000 ml @ 125 mls/hr Q8H IV Last administered on 07/22 03:36; Admin Dose 125 MLS/HR; Start 07/21/16 at 09:00; Stop 3/6/17 at 08: 59 Hydralazine HCl (Apresoline) 10 mg QID PO Last administered on 07/22/16t 08:31; Admin Dose 10 MG; Start 07/21/16 at 09:00 SUDARSHAN ARMAS MD Jul 22, 2016 08:42
--- NOTE | 2016-07-22 10:24 | PN ---
Date/Time of Note Date/Time of Note DATE: 07/22/16 TIME: 10:04 Assessment/Plan VTE Prophylaxis VTE Prophylaxis Intervention: SCD's Lines/Catheters IV Catheter Type (from Nrsg): Saline Lock Urinary Cath still in place: Yes Reason Cath still needed: other (indicate) (strict I/O) Assessment/Plan Assessment/Plan 1. Acute ischemic stroke -MRI Brain shows a 1.5 cm focus of acute/recent infarct in the right posterior frontal lobe. Smaller 6 mm focus of acute/recent of a in the right posterior medulla -cont ASA, Plavix and Statin -Neuro consult appreciated, PT, Rehab eval, pt is unable to ambulate at this time and needs either SNF vs Rehab, CM to assist with placement 2. Hypertensive Emergency-now stable -s/p Cardene gtt -cont Home Rx but have held the ARB today 2/2 YRN and have started Hydralazine in it's place, cont Thiazide and Coreg 12.5 BID 3. Type II DM - uncontrolled -A1C at 10.6 -Increased Insulin today 4. CAD s/p PCI -cont ASA and Plavix 5. Hypothyroidism -c/w synthroid -TSH is WNL's 6. Hx of Non-compliance - long conversation with patient held for taking Rx 7. Hyperlipidemia - lipid panel - statin therapy -LDL>160 -cont Statin 8. YRN -Renal consult following - Dr. Diaz -DCed Losartan and have started Hydralazine in it's place PPx- SCD's D/c IVF D/c ridley catheter Subjective 24 Hr Interval Summary Free Text/Dictation no acute events, BP stable, Exam/Review of Systems Vital Signs Vitals Vital Signs Date Time Temp Pulse Resp B/P Pulse Ox O2 Delivery O2 Flow Rate FiO2 07/22/16 07:36 97.9 73 18 162/77 98 Room Air Intake and Output 07/21/16 07/21/16 07/22/16 15:00 23:00 07:00 Intake Total 500 ml 2320 ml 1750 ml Output Total 2100 ml 180 ml Balance 500 ml 220 ml 1570 ml Exam Constitutional: alert Respiratory: clear to auscultation Cardiovascular: regular rate and rhythm Gastrointestinal: soft, No distended Musculoskeletal: nl extremities to inspection Results Result Diagram: 07/21/16 0545 07/22/16 0520 Results 24 hrs Laboratory Tests Test 07/21/16 12:14 07/21/16 12:15 07/21/16 14:35 07/21/16 17:44 Bedside Glucose 245 H 269 H 106 Urine Bacteria MODERATE Urine Bilirubin NEGATIVE Urine Clarity SLIGHTLY HAZY Urine Color LT. YELLOW Urine Glucose NEGATIVE Urine Hemoglobin 1+ H Urine Ketones NEGATIVE Urine Leukocyte Esterase 1+ H Urine Microscopic RBC 0-2 Urine Microscopic WBC 0-2 Urine Nitrite NEGATIVE Urine Osmolality 177 L Urine Random Creatinine 34.35 Urine Random Sodium 26 L Urine Specific [place] <=1.005 L Urine Total Protein NEGATIVE Urine Urobilinogen 0.2 E.U./dL Urine Yeast MODERATE Urine pH 6.0 Test 07/21/16 21:34 07/22/16 05:20 07/22/16 08:00 Bedside Glucose 97 122 Anion Gap 15 Blood Urea Nitrogen 17 # Calcium Level 9.1 Carbon Dioxide Level 29 Chloride Level 102 Creatinine 1.11 Glucose Level 97 # Potassium Level 3.9 Sodium Level 142 Medications Medications Current Medications Flumazenil (Romazicon) 0.2 mg Q1M PRN IV BENZODIAZEPINE OVERDOSE; Start at 00:00 Ondansetron HCl (Zofran Inj) 4 mg Q6H PRN IV NAUSEA AND/OR VOMITING Last administered on 07/17/16 08:44; Admin Dose 4 MG; Start 07/15/16 at 00:00 Nitroglycerin (Nitroglycerin (Sl Tab) 0.4 Mg) 1 tab Q5M PRN SL CHEST PAIN; Start 07/15/16 at 00:00 Acetaminophen (Tylenol Supp) 650 mg Q4H PRN [place] PAIN LEVEL 1-3 OR FEVER; Start 07/15/16 at 00:00 Morphine Sulfate (morphine) 2 mg Q4H PRN IV PAIN LEVEL 7-10; Start 07/15/16 at 00:00 Lorazepam (Ativan) 1 mg Q2H PRN IV ANXIETY Last administered on 07/19/16 02:57 ; Admin Dose 2 MG; Start 07/15/16 at 00:00 Bisacodyl (Dulcolax Supp) 10 mg DAILY PRN [place] CONSTIPATION; Start 07/15/16 at 00 :00 Enoxaparin Sodium (Lovenox) 40 mg DAILY SC Last administered on 07/22/16 08:22 ; Admin Dose 40 MG; Start 07/15/16 at 12:00 Miscellaneous Information 1 ea NOTE XX ; Start 07/15/16 at 17:00 Glucose (Glutose) 15 gm Q15M PRN PO DECREASED GLUCOSE; Start 07/15/16 at 17:00 Glucose (Glutose) 22.5 gm Q15M PRN PO DECREASED GLUCOSE; Start 07/15/16 at 17: 00 Dextrose (D50w Syringe) 25 ml Q15M PRN IV DECREASED GLUCOSE; Start 07/15/16 at 17:00 Dextrose (D50w Syringe) 50 ml Q15M PRN IV DECREASED GLUCOSE; Start 07/15/16 at 17:00 Glucagon (Glucagen) 1 mg Q15M PRN IM DECREASED GLUCOSE; Start 07/15/16 at 17:00 Glucose (Glutose) 15 gm Q15M PRN BUCCAL DECREASED GLUCOSE; Start 07/15/16 at 17 :00 Atorvastatin Calcium (Lipitor) 80 mg HS PO Last administered on 07/21/16 21:36 ; Admin Dose 80 MG; Start 07/15/16 at 21:00 Aspirin (Halfprin) 81 mg DAILY PO Last administered on 07/22/16 08:29; Admin Dose 81 MG; Start 07/16/16 at 09:00 Clopidogrel Bisulfate (plaVIX) 75 mg DAILY NGT Last administered on 07/22/16 08 :30; Admin Dose 75 MG; Start 07/16/16 at 09:00 Amlodipine Besylate (Norvasc) 10 mg DAILY PO Last administered on 07/22/16 08: 30; Admin Dose 10 MG; Start 07/16/16 at 14:00 Labetalol HCl (Labetalol) 20 mg Q2H PRN IV sbp >170 Last administered on 06:26; Admin Dose 20 MG; Start 07/16/16 at 14:00 Meclizine HCl (Antivert) 12.5 mg TID PO Last administered on 07/22/16 08:31; Admin Dose 12.5 MG; Start 07/17/16 at 21:00 Hydralazine HCl (Apresoline) 10 mg Q2H PRN IV SBP > 170 Last administered on 08:56; Admin Dose 10 MG; Start 07/19/16 at 09:00 Famotidine (Pepcid) 20 mg BID PO Last administered on 07/22/16 08:30; Admin Dose 20 MG; Start 07/19/16 at 21:00 Carvedilol (Coreg) 12.5 mg BID PO Last administered on 07/22/16 08:30; Admin Dose 12.5 MG; Start 07/19/16 at 21:00 Insulin Glargine (Lantus) 26 unit DAILY@08 SC Last administered on 07/22/16 08: 22; Admin Dose 26 UNIT; Start 07/21/16 at 08:00 Diagnostic Test (Pha) (Accucheck) 1 ea 02 XX ; Start 07/21/16 at 02:00 Hydralazine HCl (Apresoline) 10 mg QID PO Last administered on 07/22/16 08:31; Admin Dose 10 MG; Start 07/21/16 at 09:00 TEETEE GRIDER MD Jul 22, 2016 10:14
[2016-07-22 12:15] VITALS: BP 121/70; PULSE 73
[2016-07-22 20:05] VITALS: BP 138/74; RESP 18
[2016-07-22] MEDS: ATORVASTATIN 80 MG TAB PO SCH (20:32)
[2016-07-23] MEDS: ACCUCHECK XX SCH (01:08)
[2016-07-23 07:30] VITALS: BP 169/77; RESP 18
[2016-07-23] MEDS: INSULIN ASPART [NOVOLOG] 3 ML PEN SC SCH ×7 (08:15→21:00)
[2016-07-23] MEDS: INSULIN GLARGINE [LANtus] 3 ML PEN SC SCH (08:33)
[2016-07-23] MEDS: CLOPIDOGREL 75 MG TAB NGT SCH (09:32)
[2016-07-23] MEDS: ASPIRIN (EC) 81 MG TAB PO SCH (09:33)
[2016-07-23] MEDS: FAMOTIDINE 20 MG TAB PO SCH ×2 (09:33→21:20)
[2016-07-23] MEDS: MECLIZINE 12.5 MG TAB PO SCH ×3 (09:33→21:21)
[2016-07-23] MEDS: AMLODIPINE 10 MG TAB PO SCH (09:34)
[2016-07-23 09:35] VITALS: BP 142/75
[2016-07-23] MEDS: ENOXAPARIN 40 MG/0.4 ML SYG SC SCH (09:43)
--- NOTE | 2016-07-23 15:40 | PN ---
Date/Time of Note Date/Time of Note DATE: 07/23/16 TIME: 15:39 Assessment/Plan VTE Prophylaxis VTE Prophylaxis Intervention: SCD's Lines/Catheters IV C[facility]ter Type (from [facility] Saline Lock Urinary Cath still in place: No Assessment/Plan Assessment/Plan 1. Acute ischemic stroke -MRI Brain shows a 1.5 cm focus of acute/recent infarct in the right posterior frontal lobe. Smaller 6 mm focus of acute/recent of a in the right posterior medulla -cont ASA, Plavix and Statin -Neuro consult appreciated, PT, Rehab eval, pt is unable to ambulate at this time and needs either SNF vs Rehab, CM to assist with placement 2. Hypertensive Emergency-now stable -s/p Cardene gtt -cont Home Rx but have held the ARB today 2/2 YRN and have started Hydralazine in it's place, cont Thiazide and Coreg 12.5 BID 3. Type II DM - uncontrolled -A1C at 10.6 -Increased Insulin today 4. CAD s/p PCI -cont ASA and Plavix 5. Hypothyroidism -c/w synthroid -TSH is WNL's 6. Hx of Non-compliance - long conversation with patient held for taking Rx 7. Hyperlipidemia - lipid panel - statin therapy -LDL>160 -cont Statin 8. YRN -Renal consult following - Dr. Diaz -DCed Losartan and have started Hydralazine in it's place PPx- SCD's D/c IVF D/c ridley catheter Subjective 24 Hr Interval Summary Free Text/Dictation no acute events, Ridley was discontinued Exam/Review of Systems Vital Signs Vitals Vital Signs Date Time Temp Pulse Resp B/P Pulse Ox O2 Delivery O2 Flow Rate FiO2 07/23/16 09:35 79 142/75 07/23/16 07:30 98.8 18 95 07/22/16 07:36 Room Air Intake and Output 07/22/16 07/22/16 07/23/16 15:00 23:00 07:00 Intake Total 600 ml 880 ml 360 ml Output Total 1880 ml 1400 ml Balance 600 ml -1000 ml -1040 ml Exam Constitutional: alert Respiratory: clear to auscultation Cardiovascular: regular rate and rhythm Gastrointestinal: soft, No distended Musculoskeletal: nl extremities to inspection Results Result Diagram: 07/21/16 0545 07/22/16 0520 Results 24 hrs Laboratory Tests Test 3/6/17 17:39 07/22/16 20:19 07/23/16 08:13 07/23/16 11:57 Bedside Glucose 94 176 127 187 Medications Medications Current Medications Flumazenil (Romazicon) 0.2 mg Q1M PRN IV BENZODIAZEPINE OVERDOSE; Start at 00:00 Ondansetron HCl (Zofran Inj) 4 mg Q6H PRN IV NAUSEA AND/OR VOMITING Last administered on 07/17/16 08:44; Admin Dose 4 MG; Start 07/15/16 at 00:00 Nitroglycerin (Nitroglycerin (Sl Tab) 0.4 Mg) 1 tab Q5M PRN SL CHEST PAIN; Start 07/15/16 at 00:00 Acetaminophen (Tylenol Supp) 650 mg Q4H PRN [place] PAIN LEVEL 1-3 OR FEVER; Start 07/15/16 at 00:00 Morphine Sulfate (morphine) 2 mg Q4H PRN IV PAIN LEVEL 7-10; Start 07/15/16 at 00:00 Lorazepam (Ativan) 1 mg Q2H PRN IV ANXIETY Last administered on 07/19/16 02:57 ; Admin Dose 2 MG; Start 07/15/16 at 00:00 Bisacodyl (Dulcolax Supp) 10 mg DAILY PRN [place] CONSTIPATION; Start 07/15/16 at 00 :00 Enoxaparin Sodium (Lovenox) 40 mg DAILY SC Last administered on 07/23/16 09:43 ; Admin Dose 40 MG; Start 07/15/16 at 12:00 Miscellaneous Information 1 ea NOTE XX ; Start 07/15/16 at 17:00 Glucose (Glutose) 15 gm Q15M PRN PO DECREASED GLUCOSE; Start 07/15/16 at 17:00 Glucose (Glutose) 22.5 gm Q15M PRN PO DECREASED GLUCOSE; Start 07/15/16 at 17: 00 Dextrose (D50w Syringe) 25 ml Q15M PRN IV DECREASED GLUCOSE; Start 07/15/16 at 17:00 Dextrose (D50w Syringe) 50 ml Q15M PRN IV DECREASED GLUCOSE; Start 07/15/16 at 17:00 Glucagon (Glucagen) 1 mg Q15M PRN IM DECREASED GLUCOSE; Start 07/15/16 at 17:00 Glucose (Glutose) 15 gm Q15M PRN BUCCAL DECREASED GLUCOSE; Start 07/15/16 at 17 :00 Atorvastatin Calcium (Lipitor) 80 mg HS PO Last administered on 07/22/16 20:32 ; Admin Dose 80 MG; Start 07/15/16 at 21:00 Aspirin (Halfprin) 81 mg DAILY PO Last administered on 07/23/16 09:33; Admin Dose 81 MG; Start 07/16/16 at 09:00 Clopidogrel Bisulfate (plaVIX) 75 mg DAILY NGT Last administered on 07/23/16 09 :32; Admin Dose 75 MG; Start 07/16/16 at 09:00 Amlodipine Besylate (Norvasc) 10 mg DAILY PO Last administered on 07/23/16 09: 34; Admin Dose 10 MG; Start 07/16/16 at 14:00 Labetalol HCl (Labetalol) 20 mg Q2H PRN IV sbp >170 Last administered on 06:26; Admin Dose 20 MG; Start 07/16/16 at 14:00 Meclizine HCl (Antivert) 12.5 mg TID PO Last administered on 07/23/16 13:23; Admin Dose 12.5 MG; Start 07/17/16 at 21:00 Hydralazine HCl (Apresoline) 10 mg Q2H PRN IV SBP > 170 Last administered on 08:56; Admin Dose 10 MG; Start 07/19/16 at 09:00 Famotidine (Pepcid) 20 mg BID PO Last administered on 07/23/16 09:33; Admin Dose 20 MG; Start 07/19/16 at 21:00 Carvedilol (Coreg) 12.5 mg BID PO Last administered on 07/23/16 09:33; Admin Dose 12.5 MG; Start 07/19/16 at 21:00 Insulin Glargine (Lantus) 26 unit DAILY@08 SC Last administered on 07/23/16 08: 33; Admin Dose 26 UNIT; Start 07/21/16 at 08:00 Diagnostic Test (Pha) (Accucheck) 1 ea 02 XX ; Start 07/21/16 at 02:00 Hydralazine HCl (Apresoline) 10 mg QID PO Last administered on 07/23/16 13:24; Admin Dose 10 MG; Start 07/21/16 at 09:00 TEETEE GRIDER MD Jul 23, 2016 15:40
[2016-07-23 20:13] VITALS: BP 146/79; RESP 18
[2016-07-23] MEDS: ATORVASTATIN 80 MG TAB PO SCH (21:20)
[2016-07-24] MEDS: ACCUCHECK XX SCH (02:00)
[2016-07-24 07:51] VITALS: BP 135/79; RESP 16
[2016-07-24] MEDS: INSULIN ASPART [NOVOLOG] 3 ML PEN SC SCH ×7 (08:04→21:00)
[2016-07-24] MEDS: MECLIZINE 12.5 MG TAB PO SCH ×3 (08:12→21:27)
[2016-07-24] MEDS: AMLODIPINE 10 MG TAB PO SCH (08:12)
[2016-07-24] MEDS: FAMOTIDINE 20 MG TAB PO SCH ×2 (08:13→21:27)
[2016-07-24] MEDS: CLOPIDOGREL 75 MG TAB NGT SCH (08:13)
[2016-07-24] MEDS: ASPIRIN (EC) 81 MG TAB PO SCH (08:13)
[2016-07-24] MEDS: INSULIN GLARGINE [LANtus] 3 ML PEN SC SCH (08:16)
[2016-07-24] MEDS: ENOXAPARIN 40 MG/0.4 ML SYG SC SCH (08:17)
[2016-07-24 19:00] VITALS: BP 142/76; RESP 18
--- NOTE | 2016-07-24 21:23 | PN ---
Date/Time of Note Date/Time of Note DATE: 07/24/16 TIME: 21:21 Assessment/Plan VTE Prophylaxis VTE Prophylaxis Intervention: SCD's Lines/Catheters IV Catheter Type (from Nrs): Saline Lock Urinary Cath still in place: No Assessment/Plan Assessment/Plan 1. Acute ischemic stroke -MRI Brain shows a 1.5 cm focus of acute/recent infarct in the right posterior frontal lobe. Smaller 6 mm focus of acute/recent of a in the right posterior medulla -cont ASA, Plavix and Statin -Neuro consult appreciated, PT, Rehab eval, pt is unable to ambulate at this time and needs either SNF vs Rehab, CM to assist with placement 2. Hypertensive Emergency-now stable -s/p Cardene gtt -cont Home Rx but have held the ARB today 2/2 YRN and have started Hydralazine in it's place, cont Thiazide and Coreg 12.5 BID 3. Type II DM - uncontrolled -A1C at 10.6 -Increased Insulin today 4. CAD s/p PCI -cont ASA and Plavix 5. Hypothyroidism -c/w synthroid -TSH is WNL's 6. Hx of Non-compliance - long conversation with patient held for taking Rx 7. Hyperlipidemia - lipid panel - statin therapy -LDL>160 -cont Statin 8. YRN -Renal consult following - Dr. Diaz -DCed Losartan and have started Hydralazine in it's place PPx- SCD's D/c sitter in AM Subjective 24 Hr Interval Summary Free Text/Dictation pt stable, no acute events, BP stable, Exam/Review of Systems Vital Signs Vitals Vital Signs Date Time Temp Pulse Resp B/P Pulse Ox O2 Delivery O2 Flow Rate FiO2 07/24/16 07:51 98.6 75 16 135/79 97 07/22/16 07:36 Room Air Intake and Output 07/23/16 07/23/16 07/24/16 15:00 23:00 07:00 Intake Total 1000 ml Output Total 800 ml 500 ml Balance 200 ml -500 ml Exam Constitutional: alert Respiratory: clear to auscultation Cardiovascular: regular rate and rhythm Gastrointestinal: soft, No distended Musculoskeletal: nl extremities to inspection Results Result Diagram: 07/21/16 0545 07/22/16 0520 Results 24 hrs Laboratory Tests Test 07/24/16 07:50 07/24/16 11:54 07/24/16 17:14 Bedside Glucose 114 250 H 89 Medications Medications Current Medications Flumazenil (Romazicon) 0.2 mg Q1M PRN IV BENZODIAZEPINE OVERDOSE; Start at 00:00 Ondansetron HCl (Zofran Inj) 4 mg Q6H PRN IV NAUSEA AND/OR VOMITING Last administered on 07/17/16 08:44; Admin Dose 4 MG; Start 07/15/16 at 00:00 Nitroglycerin (Nitroglycerin (Sl Tab) 0.4 Mg) 1 tab Q5M PRN SL CHEST PAIN; Start 07/15/16 at 00:00 Acetaminophen (Tylenol Supp) 650 mg Q4H PRN [place] PAIN LEVEL 1-3 OR FEVER; Start 07/15/16 at 00:00 Morphine Sulfate (morphine) 2 mg Q4H PRN IV PAIN LEVEL 7-10; Start 07/15/16 at 00:00 Lorazepam (Ativan) 1 mg Q2H PRN IV ANXIETY Last administered on 07/19/16 02:57 ; Admin Dose 2 MG; Start 07/15/16 at 00:00 Bisacodyl (Dulcolax Supp) 10 mg DAILY PRN [place] CONSTIPATION; Start 07/15/16 at 00 :00 Enoxaparin Sodium (Lovenox) 40 mg DAILY SC Last administered on 07/24/16 08:17 ; Admin Dose 40 MG; Start 07/15/16 at 12:00 Miscellaneous Information 1 ea NOTE XX ; Start 07/15/16 at 17:00 Glucose (Glutose) 15 gm Q15M PRN PO DECREASED GLUCOSE; Start 07/15/16 at 17:00 Glucose (Glutose) 22.5 gm Q15M PRN PO DECREASED GLUCOSE; Start 07/15/16 at 17: 00 Dextrose (D50w Syringe) 25 ml Q15M PRN IV DECREASED GLUCOSE; Start 07/15/16 at 17:00 Dextrose (D50w Syringe) 50 ml Q15M PRN IV DECREASED GLUCOSE; Start 07/15/16 at 17:00 Glucagon (Glucagen) 1 mg Q15M PRN IM DECREASED GLUCOSE; Start 07/15/16 at 17:00 Glucose (Glutose) 15 gm Q15M PRN BUCCAL DECREASED GLUCOSE; Start 07/15/16 at 17 :00 Atorvastatin Calcium (Lipitor) 80 mg HS PO Last administered on 07/23/16 21:20 ; Admin Dose 80 MG; Start 07/15/16 at 21:00 Aspirin (Halfprin) 81 mg DAILY PO Last administered on 07/24/16 08:13; Admin Dose 81 MG; Start 07/16/16 at 09:00 Clopidogrel Bisulfate (plaVIX) 75 mg DAILY NGT Last administered on 07/24/16 08 :13; Admin Dose 75 MG; Start 07/16/16 at 09:00 Amlodipine Besylate (Norvasc) 10 mg DAILY PO Last administered on 07/24/16 08: 12; Admin Dose 10 MG; Start 07/16/16 at 14:00 Labetalol HCl (Labetalol) 20 mg Q2H PRN IV sbp >170 Last administered on 06:26; Admin Dose 20 MG; Start 07/16/16 at 14:00 Meclizine HCl (Antivert) 12.5 mg TID PO Last administered on 07/24/16 12:54; Admin Dose 12.5 MG; Start 07/17/16 at 21:00 Hydralazine HCl (Apresoline) 10 mg Q2H PRN IV SBP > 170 Last administered on 08:56; Admin Dose 10 MG; Start 07/19/16 at 09:00 Famotidine (Pepcid) 20 mg BID PO Last administered on 07/24/16 08:13; Admin Dose 20 MG; Start 07/19/16 at 21:00 Carvedilol (Coreg) 12.5 mg BID PO Last administered on 07/24/16 08:13; Admin Dose 12.5 MG; Start 07/19/16 at 21:00 Insulin Glargine (Lantus) 26 unit DAILY@08 SC Last administered on 07/24/16 08: 16; Admin Dose 26 UNIT; Start 07/21/16 at 08:00 Diagnostic Test (Pha) (Accucheck) 1 ea 02 XX ; Start 07/21/16 at 02:00 Hydralazine HCl (Apresoline) 10 mg QID PO Last administered on 07/24/16 17:45; Admin Dose 10 MG; Start 07/21/16 at 09:00 TEETEE GRIDER MD Jul 24, 2016 21:23
[2016-07-24] MEDS: ATORVASTATIN 80 MG TAB PO SCH (21:27)
[2016-07-25] MEDS: ACCUCHECK XX SCH (02:00)
[2016-07-25 07:24] VITALS: BP 127/72; RESP 16
[2016-07-25] MEDS: INSULIN ASPART [NOVOLOG] 3 ML PEN SC SCH ×7 (08:14→21:00)
[2016-07-25] MEDS: MECLIZINE 12.5 MG TAB PO SCH ×3 (09:19→22:14)
[2016-07-25] MEDS: CLOPIDOGREL 75 MG TAB NGT SCH (09:19)
[2016-07-25] MEDS: AMLODIPINE 10 MG TAB PO SCH (09:20)
[2016-07-25] MEDS: FAMOTIDINE 20 MG TAB PO SCH ×2 (09:20→22:13)
[2016-07-25] MEDS: ASPIRIN (EC) 81 MG TAB PO SCH (09:20)
[2016-07-25] MEDS: ENOXAPARIN 40 MG/0.4 ML SYG SC SCH (09:21)
[2016-07-25] MEDS: INSULIN GLARGINE [LANtus] 3 ML PEN SC SCH (09:22)
[2016-07-25 13:46] VITALS: BP 121/67; PULSE 77
[2016-07-25] MEDS: LORAZEPAM 2 MG INJ IV PRN (17:35)
[2016-07-25 20:00] VITALS: BP 153/78; RESP 18
--- NOTE | 2016-07-25 22:01 | PN ---
Date/Time of Note Date/Time of Note DATE: 07/25/16 TIME: 21:59 Assessment/Plan VTE Prophylaxis VTE Prophylaxis Intervention: SCD's Lines/Catheters IV Catheter Type (from Nrs): Saline Lock Urinary Cath still in place: No Assessment/Plan Assessment/Plan 1. Acute ischemic stroke -MRI Brain shows a 1.5 cm focus of acute/recent infarct in the right posterior frontal lobe. Smaller 6 mm focus of acute/recent of a in the right posterior medulla -cont ASA, Plavix and Statin -Neuro consult appreciated, PT, Rehab eval, pt is unable to ambulate at this time and needs either SNF vs Rehab, CM to assist with placement 2. Hypertensive Emergency-now stable -s/p Cardene gtt -cont Home Rx but have held the ARB today 2/2 YRN and have started Hydralazine in it's place, cont Thiazide and Coreg 12.5 BID 3. Type II DM - uncontrolled -A1C at 10.6 -Increased Insulin today 4. CAD s/p PCI -cont ASA and Plavix 5. Hypothyroidism -c/w synthroid -TSH is WNL's 6. Hx of Non-compliance - long conversation with patient held for taking Rx 7. Hyperlipidemia - lipid panel - statin therapy -LDL>160 -cont Statin 8. YRN -Renal consult following - Dr. Diaz -DCed Losartan and have started Hydralazine in it's place PPx- SCD's Subjective 24 Hr Interval Summary Free Text/Dictation pt was agitated, more confused, Bp stable , had a episode of hypoglycemia, Non compliant Exam/Review of Systems Vital Signs Vitals Vital Signs Date Time Temp Pulse Resp B/P Pulse Ox O2 Delivery O2 Flow Rate FiO2 07/25/16 20:00 98.8 82 18 153/78 96 07/22/16 07:36 Room Air Intake and Output 07/24/16 07/24/16 07/25/16 15:00 23:00 07:00 Intake Total 840 ml 620 ml Output Total 800 ml 350 ml Balance 40 ml 270 ml Exam Constitutional: alert Respiratory: clear to auscultation Cardiovascular: regular rate and rhythm Gastrointestinal: soft, No distended Musculoskeletal: nl extremities to inspection Results Result Diagram: 07/21/16 0545 07/22/16 0520 Results 24 hrs Laboratory Tests Test 07/24/16 22:00 07/25/16 08:01 07/25/16 12:09 07/25/16 17:10 Bedside Glucose 115 139 130 69 L Test 07/25/16 18:12 07/25/16 18:37 07/25/16 21:01 Bedside Glucose 134 111 105 Medications Medications Current Medications Flumazenil (Romazicon) 0.2 mg Q1M PRN IV BENZODIAZEPINE OVERDOSE; Start at 00:00 Ondansetron HCl (Zofran Inj) 4 mg Q6H PRN IV NAUSEA AND/OR VOMITING Last administered on 07/17/16 08:44; Admin Dose 4 MG; Start 07/15/16 at 00:00 Nitroglycerin (Nitroglycerin (Sl Tab) 0.4 Mg) 1 tab Q5M PRN SL CHEST PAIN; Start 07/15/16 at 00:00 Acetaminophen (Tylenol Supp) 650 mg Q4H PRN [place] PAIN LEVEL 1-3 OR FEVER; Start 07/15/16 at 00:00 Morphine Sulfate (morphine) 2 mg Q4H PRN IV PAIN LEVEL 7-10; Start 07/15/16 at 00:00 Lorazepam (Ativan) 1 mg Q2H PRN IV ANXIETY Last administered on 07/25/16 17:35 ; Admin Dose 1 MG; Start 07/15/16 at 00:00 Bisacodyl (Dulcolax Supp) 10 mg DAILY PRN [place] CONSTIPATION; Start 07/15/16 at 00 :00 Enoxaparin Sodium (Lovenox) 40 mg DAILY SC Last administered on 07/25/16 09:21 ; Admin Dose 40 MG; Start 07/15/16 at 12:00 Miscellaneous Information 1 ea NOTE XX ; Start 07/15/16 at 17:00 Glucose (Glutose) 15 gm Q15M PRN PO DECREASED GLUCOSE; Start 07/15/16 at 17:00 Glucose (Glutose) 22.5 gm Q15M PRN PO DECREASED GLUCOSE; Start 07/15/16 at 17: 00 Dextrose (D50w Syringe) 25 ml Q15M PRN IV DECREASED GLUCOSE Last administered on 07/25/16 17:28; Admin Dose 25 ML; Start 07/15/16 at 17:00 Dextrose (D50w Syringe) 50 ml Q15M PRN IV DECREASED GLUCOSE; Start 07/15/16 at 17:00 Glucagon (Glucagen) 1 mg Q15M PRN IM DECREASED GLUCOSE; Start 07/15/16 at 17:00 Glucose (Glutose) 15 gm Q15M PRN BUCCAL DECREASED GLUCOSE; Start 07/15/16 at 17 :00 Atorvastatin Calcium (Lipitor) 80 mg HS PO Last administered on 07/24/16 21:27 ; Admin Dose 80 MG; Start 07/15/16 at 21:00 Aspirin (Halfprin) 81 mg DAILY PO Last administered on 07/25/16 09:20; Admin Dose 81 MG; Start 07/16/16 at 09:00 Clopidogrel Bisulfate (plaVIX) 75 mg DAILY NGT Last administered on 07/25/16 09 :19; Admin Dose 75 MG; Start 07/16/16 at 09:00 Amlodipine Besylate (Norvasc) 10 mg DAILY PO Last administered on 07/25/16 09: 20; Admin Dose 10 MG; Start 07/16/16 at 14:00 Labetalol HCl (Labetalol) 20 mg Q2H PRN IV sbp >170 Last administered on 06:26; Admin Dose 20 MG; Start 07/16/16 at 14:00 Meclizine HCl (Antivert) 12.5 mg TID PO Last administered on 07/25/16 13:45; Admin Dose 12.5 MG; Start 07/17/16 at 21:00 Hydralazine HCl (Apresoline) 10 mg Q2H PRN IV SBP > 170 Last administered on 08:56; Admin Dose 10 MG; Start 07/19/16 at 09:00 Famotidine (Pepcid) 20 mg BID PO Last administered on 07/25/16 09:20; Admin Dose 20 MG; Start 07/19/16 at 21:00 Carvedilol (Coreg) 12.5 mg BID PO Last administered on 07/25/16 09:20; Admin Dose 12.5 MG; Start 07/19/16 at 21:00 Insulin Glargine (Lantus) 26 unit DAILY@08 SC Last administered on 07/25/16 09: 22; Admin Dose 26 UNIT; Start 07/21/16 at 08:00 Diagnostic Test (Pha) (Accucheck) 1 ea 02 XX ; Start 07/21/16 at 02:00 Hydralazine HCl (Apresoline) 10 mg QID PO Last administered on 07/25/16t 13:45; Admin Dose 10 MG; Start 07/21/16 at 09:00 TEETEE GRIDER MD Jul 25, 2016 22:01
[2016-07-25] MEDS: ATORVASTATIN 80 MG TAB PO SCH (22:13)
[2016-07-25 23:22] VITALS: BP 137/81; PULSE 90; RESP 18
[2016-07-26] VITALS (16 sets, daily range): BP systolic 118–177; BP diastolic 64–87; PULSE 75–92; RESP 16–19
--- NOTE | 2016-07-26 01:30 | RADRPT ---
PROCEDURE: CT brain without contrast. CLINICAL INDICATION: Injury and pain. TECHNIQUE: CT scan of the brain was performed on a multi-detector high-resolution CT scanner. Co ntiguous axial images were obtained from the skull base to the vertex without intravenous contrast. Coronal and sagittal reformatted images were also obtained. Images were reviewed on the PACS works tation. One or more of the following dose reduction techniques were used: - Automated exposure control. - Adjustment of the mA and/or kV according to patient size. - Use of iterative reconstruction technique. Exam CTD/vol = 43.77 mGy. Total exam DLP = 633.27 mGy-cm. COMPARISON: 07/14/2016. FINDINGS: The ventricles and cortical sulci are prominent consistent with mild age related volume loss. There are patchy areas of low attenuation within the periventricular and subcortical white matter consist ent with moderate chronic ischemic changes secondary to small vessel disease. There is an old right occipital infarct. There is an old infarct within the distribution of the left posterior cerebral a rtery. There are old infarcts within the left cerebellum. There is a chronic lacunar infarct withi n the right cerebellum. There are chronic lacunar infarcts within bilateral basal ganglia. There is no mass effect or midline shift. There is no intracranial hemorrhage or abnormal extra-axial colle ction. There are atherosclerotic calcifications within bilateral distal internal carotid arteries. The calvarium is intact. There is no evidence of fracture. There is minimal mucoperiosteal disease within right-sided ethmoid air cells and left sphenoid sinus. Bilateral mastoid air cells are lorin r. IMPRESSION: No acute intracranial abnormality identified. Mild age related volume loss and moderate chronic ischemic white matter disease. Old infarct within the distribution of the left posterior cerebral artery. Old left cerebellar infarcts. Old right parietal lobe infarct. Chronic lacunar infarcts within bilateral basal ganglia and right cerebellum. Cerebral atherosclerosis. .Jose Ramon Singh MD, MD Date Time Electronically viewed and signed by .Jose Ramon Singh MD, MD on 07/26/2016 01:30 .T/
[2016-07-26] MEDS: ACCUCHECK XX SCH (02:00)
[2016-07-26] MEDS: CLOPIDOGREL 75 MG TAB NGT SCH (09:09)
[2016-07-26] MEDS: ASPIRIN (EC) 81 MG TAB PO SCH (09:09)
[2016-07-26] MEDS: FAMOTIDINE 20 MG TAB PO SCH ×2 (09:09→21:08)
[2016-07-26] MEDS: MECLIZINE 12.5 MG TAB PO SCH ×3 (09:10→21:08)
[2016-07-26] MEDS: AMLODIPINE 10 MG TAB PO SCH (09:10)
[2016-07-26] MEDS: INSULIN GLARGINE [LANtus] 3 ML PEN SC SCH (09:16)
[2016-07-26] MEDS: ENOXAPARIN 40 MG/0.4 ML SYG SC SCH (09:16)
[2016-07-26] MEDS: INSULIN ASPART [NOVOLOG] 3 ML PEN SC SCH ×7 (09:17→21:00)
--- NOTE | 2016-07-26 11:17 | PN ---
Date/Time of Note Date/Time of Note DATE: 07/26/16 TIME: 11:15 Assessment/Plan VTE Prophylaxis VTE Prophylaxis Intervention: SCD's Lines/Catheters IV Catheter Type (from Nrs): Saline Lock Urinary Cath still in place: No Assessment/Plan Assessment/Plan 1. Acute ischemic stroke -MRI Brain shows a 1.5 cm focus of acute/recent infarct in the right posterior frontal lobe. Smaller 6 mm focus of acute/recent of a in the right posterior medulla -cont ASA, Plavix and Statin -Neuro consult appreciated, PT, Rehab eval, pt is unable to ambulate at this time and needs either SNF vs Rehab, CM to assist with placement 2. S/p Fall episode yesterday, CT head negative, pt is in delirium requiring restraints - will give risperidone 0.5mg BID 2. Hypertensive Emergency-now stable -s/p Cardene gtt -cont Home Rx but have held the ARB today 2/2 YRN and have started Hydralazine in it's place, cont Thiazide and Coreg 12.5 BID 3. Type II DM - uncontrolled -A1C at 10.6 -Increased Insulin today 4. CAD s/p PCI -cont ASA and Plavix 5. Hypothyroidism -c/w synthroid -TSH is WNL's 6. Hx of Non-compliance - long conversation with patient held for taking Rx 7. Hyperlipidemia - lipid panel - statin therapy -LDL>160 -cont Statin 8. YRN -Renal consult following - Dr. Diaz -DCed Losartan and have started Hydralazine in it's place PPx- SCD's Subjective 24 Hr Interval Summary Free Text/Dictation pt had a fall episode yesterday, required Restraints, family refused Acute rehab Exam/Review of Systems Vital Signs Vitals Vital Signs Date Time Temp Pulse Resp B/P Pulse Ox O2 Delivery O2 Flow Rate FiO2 07/26/16 08:10 97.7 81 18 139/68 94 07/26/16 06:00 Room Air Intake and Output 07/25/16 07/25/16 07/26/16 15:00 23:00 07:00 Intake Total 240 ml Output Total 200 ml Balance 40 ml Exam Constitutional: alert Respiratory: clear to auscultation Cardiovascular: regular rate and rhythm Gastrointestinal: soft, No distended Musculoskeletal: nl extremities to inspection Results Result Diagram: 07/22/16 0520 Results 24 hrs Laboratory Tests Test 07/25/16 12:09 07/25/16 17:10 07/25/16 18:12 07/25/16 18:37 Bedside Glucose 130 69 L 134 111 Test 07/25/16 21:01 07/26/16 08:13 Bedside Glucose 105 154 Medications Medications Current Medications Flumazenil (Romazicon) 0.2 mg Q1M PRN IV BENZODIAZEPINE OVERDOSE; Start at 00:00 Ondansetron HCl (Zofran Inj) 4 mg Q6H PRN IV NAUSEA AND/OR VOMITING Last administered on 07/17/16 08:44; Admin Dose 4 MG; Start 07/15/16 at 00:00 Nitroglycerin (Nitroglycerin (Sl Tab) 0.4 Mg) 1 tab Q5M PRN SL CHEST PAIN; Start 07/15/16 at 00:00 Acetaminophen (Tylenol Supp) 650 mg Q4H PRN [place] PAIN LEVEL 1-3 OR FEVER; Start 07/15/16 at 00:00 Morphine Sulfate (morphine) 2 mg Q4H PRN IV PAIN LEVEL 7-10; Start 07/15/16 at 00:00 Lorazepam (Ativan) 1 mg Q2H PRN IV ANXIETY Last administered on 07/25/16 17:35 ; Admin Dose 1 MG; Start 07/15/16 at 00:00 Bisacodyl (Dulcolax Supp) 10 mg DAILY PRN [place] CONSTIPATION; Start 07/15/16 at 00 :00 Enoxaparin Sodium (Lovenox) 40 mg DAILY SC Last administered on 07/26/16 09:16 ; Admin Dose 40 MG; Start 07/15/16 at 12:00 Miscellaneous Information 1 ea NOTE XX ; Start 07/15/16 at 17:00 Glucose (Glutose) 15 gm Q15M PRN PO DECREASED GLUCOSE; Start 07/15/16 at 17:00 Glucose (Glutose) 22.5 gm Q15M PRN PO DECREASED GLUCOSE; Start 07/15/16 at 17: 00 Dextrose (D50w Syringe) 25 ml Q15M PRN IV DECREASED GLUCOSE Last administered on 07/25/16 17:28; Admin Dose 25 ML; Start 07/15/16 at 17:00 Dextrose (D50w Syringe) 50 ml Q15M PRN IV DECREASED GLUCOSE; Start 07/15/16 at 17:00 Glucagon (Glucagen) 1 mg Q15M PRN IM DECREASED GLUCOSE; Start 07/15/16 at 17:00 Glucose (Glutose) 15 gm Q15M PRN BUCCAL DECREASED GLUCOSE; Start 07/15/16 at 17 :00 Atorvastatin Calcium (Lipitor) 80 mg HS PO Last administered on 07/25/16 22:13 ; Admin Dose 80 MG; Start 07/15/16 at 21:00 Aspirin (Halfprin) 81 mg DAILY PO Last administered on 07/26/16 09:09; Admin Dose 81 MG; Start 07/16/16 at 09:00 Clopidogrel Bisulfate (plaVIX) 75 mg DAILY NGT Last administered on 07/26/16 09:09; Admin Dose 75 MG; Start 07/16/16 at 09:00 Amlodipine Besylate (Norvasc) 10 mg DAILY PO Last administered on 07/26/16 09: 10; Admin Dose 10 MG; Start 07/16/16 at 14:00 Labetalol HCl (Labetalol) 20 mg Q2H PRN IV sbp >170 Last administered on 06:26; Admin Dose 20 MG; Start 07/16/16 at 14:00 Meclizine HCl (Antivert) 12.5 mg TID PO Last administered on 07/26/16 09:10; Admin Dose 12.5 MG; Start 07/17/16 at 21:00 Hydralazine HCl (Apresoline) 10 mg Q2H PRN IV SBP > 170 Last administered on 08:56; Admin Dose 10 MG; Start 07/19/16 at 09:00 Famotidine (Pepcid) 20 mg BID PO Last administered on 07/26/16 09:09; Admin Dose 20 MG; Start 07/19/16 at 21:00 Carvedilol (Coreg) 12.5 mg BID PO Last administered on 07/26/16 09:10; Admin Dose 12.5 MG; Start 07/19/16 at 21:00 Insulin Glargine (Lantus) 26 unit DAILY@08 SC Last administered on 07/26/16 09 :16; Admin Dose 26 UNIT; Start 07/21/16 at 08:00 Diagnostic Test (Pha) (Accucheck) 1 ea 02 XX ; Start 07/21/16 at 02:00 Hydralazine HCl (Apresoline) 10 mg QID PO Last administered on 07/26/16t 09:10 ; Admin Dose 10 MG; Start 07/21/16 at 09:00 TEETEE GRIDER MD Jul 26, 2016 11:17
[2016-07-26] MEDS ORDERED: RISPERIDONE 0.25 MG TAB PO ONE (11:30)
[2016-07-26] MEDS: RISPERIDONE 0.25 MG TAB PO SCH (21:08)
[2016-07-26] MEDS: ATORVASTATIN 80 MG TAB PO SCH (21:08)
[2016-07-26] MEDS: hydrALAzine 20 MG INJ IV PRN (22:53)
[2016-07-27] VITALS (28 sets, daily range): BP systolic 116–156; BP diastolic 59–85; PULSE 74–90; RESP 9–19
[2016-07-27] MEDS: ACCUCHECK XX SCH (02:00)
[2016-07-27] MEDS: FAMOTIDINE 20 MG TAB PO SCH ×2 (08:13→21:44)
[2016-07-27] MEDS: CLOPIDOGREL 75 MG TAB NGT SCH (08:13)
[2016-07-27] MEDS: MECLIZINE 12.5 MG TAB PO SCH ×4 (08:13→21:45)
[2016-07-27] MEDS: RISPERIDONE 0.25 MG TAB PO SCH (08:14)
[2016-07-27] MEDS: ASPIRIN (EC) 81 MG TAB PO SCH (08:14)
[2016-07-27] MEDS: AMLODIPINE 10 MG TAB PO SCH (08:15)
[2016-07-27] MEDS: INSULIN ASPART [NOVOLOG] 3 ML PEN SC SCH ×9 (08:20→21:00)
[2016-07-27] MEDS: ENOXAPARIN 40 MG/0.4 ML SYG SC SCH (08:20)
[2016-07-27] MEDS: INSULIN GLARGINE [LANtus] 3 ML PEN SC SCH (08:21)
--- NOTE | 2016-07-27 10:46 | PN ---
Date/Time of Note Date/Time of Note DATE: 07/27/16 TIME: 10:44 Assessment/Plan VTE Prophylaxis VTE Prophylaxis Intervention: SCD's Lines/Catheters IV Catheter Type (from Nrsg): Saline Lock Urinary Cath still in place: No Assessment/Plan Assessment/Plan 1. Acute ischemic stroke -MRI Brain shows a 1.5 cm focus of acute/recent infarct in the right posterior frontal lobe. Smaller 6 mm focus of acute/recent of a in the right posterior medulla -cont ASA, Plavix and Statin SNF placement 2. S/p Fall episode yesterday, CT head negative, pt is in delirium requiring restraints - will give risperidone 0.5mg BID 2. Hypertensive Emergency-now stable -s/p Cardene gtt cont Thiazide and Coreg 12.5 BID 3. Type II DM - uncontrolled 4. CAD s/p PCI -cont ASA and Plavix 5. Hypothyroidism 6. Hx of Non-compliance - long conversation with patient held for taking Rx 7. Hyperlipidemia - lipid panel - statin therapy 8. YRN - resolved, Nephrolgoy following PPx- SCD's Subjective 24 Hr Interval Summary Free Text/Dictation pt still agitated required restraints, no BM for 3 days Exam/Review of Systems Vital Signs Vitals Vital Signs Date Time Temp Pulse Resp B/P Pulse Ox O2 Delivery O2 Flow Rate FiO2 07/27/16 08:18 97.1 76 18 154/81 95 07/27/16 06:00 Room Air Intake and Output 07/26/16 07/26/16 07/27/16 15:00 23:00 07:00 Intake Total 760 ml 200 ml Balance 760 ml 200 ml Exam Constitutional: alert Respiratory: clear to auscultation Cardiovascular: regular rate and rhythm Gastrointestinal: soft, No distended Musculoskeletal: nl extremities to inspection Results Results 24 hrs Laboratory Tests Test 07/26/16 12:30 07/26/16 17:21 07/26/16 17:56 07/26/16 18:12 Bedside Glucose 266 H 59 L 119 112 Test 07/26/16 21:57 07/27/16 08:13 Bedside Glucose 123 144 Medications Medications Current Medications Flumazenil (Romazicon) 0.2 mg Q1M PRN IV BENZODIAZEPINE OVERDOSE; Start at 00:00 Ondansetron HCl (Zofran Inj) 4 mg Q6H PRN IV NAUSEA AND/OR VOMITING Last administered on 07/17/16 08:44; Admin Dose 4 MG; Start 07/15/16 at 00:00 Nitroglycerin (Nitroglycerin (Sl Tab) 0.4 Mg) 1 tab Q5M PRN SL CHEST PAIN; Start 07/15/16 at 00:00 Acetaminophen (Tylenol Supp) 650 mg Q4H PRN [place] PAIN LEVEL 1-3 OR FEVER; Start 07/15/16 at 00:00 Morphine Sulfate (morphine) 2 mg Q4H PRN IV PAIN LEVEL 7-10; Start 07/15/16 at 00:00 Lorazepam (Ativan) 1 mg Q2H PRN IV ANXIETY Last administered on 07/25/16 17:35 ; Admin Dose 1 MG; Start 07/15/16 at 00:00 Bisacodyl (Dulcolax Supp) 10 mg DAILY PRN [place] CONSTIPATION; Start 07/15/16 at 00 :00 Enoxaparin Sodium (Lovenox) 40 mg DAILY SC Last administered on 07/27/16 08:20 ; Admin Dose 40 MG; Start 07/15/16 at 12:00 Miscellaneous Information 1 ea NOTE XX ; Start 07/15/16 at 17:00 Glucose (Glutose) 15 gm Q15M PRN PO DECREASED GLUCOSE; Start 07/15/16 at 17:00 Glucose (Glutose) 22.5 gm Q15M PRN PO DECREASED GLUCOSE; Start 07/15/16 at 17: 00 Dextrose (D50w Syringe) 25 ml Q15M PRN IV DECREASED GLUCOSE Last administered on 07/25/16 17:28; Admin Dose 25 ML; Start 07/15/16 at 17:00 Dextrose (D50w Syringe) 50 ml Q15M PRN IV DECREASED GLUCOSE; Start 07/15/16 at 17:00 Glucagon (Glucagen) 1 mg Q15M PRN IM DECREASED GLUCOSE; Start 07/15/16 at 17:00 Glucose (Glutose) 15 gm Q15M PRN BUCCAL DECREASED GLUCOSE; Start 07/15/16 at 17 :00 Atorvastatin Calcium (Lipitor) 80 mg HS PO Last administered on 07/26/16 21:08 ; Admin Dose 80 MG; Start 07/15/16 at 21:00 Aspirin (Halfprin) 81 mg DAILY PO Last administered on 07/27/16 08:14; Admin Dose 81 MG; Start 07/16/16 at 09:00 Clopidogrel Bisulfate (plaVIX) 75 mg DAILY NGT Last administered on 07/27/16 08:13; Admin Dose 75 MG; Start 07/16/16 at 09:00 Amlodipine Besylate (Norvasc) 10 mg DAILY PO Last administered on 07/27/16 08: 15; Admin Dose 10 MG; Start 07/16/16 at 14:00 Labetalol HCl (Labetalol) 20 mg Q2H PRN IV sbp >170 Last administered on 06:26; Admin Dose 20 MG; Start 07/16/16 at 14:00 Meclizine HCl (Antivert) 12.5 mg TID PO Last administered on 07/27/16 08:13; Admin Dose 12.5 MG; Start 07/17/16 at 21:00 Hydralazine HCl (Apresoline) 10 mg Q2H PRN IV SBP > 170 Last administered on 22:53; Admin Dose 10 MG; Start 07/19/16 at 09:00 Famotidine (Pepcid) 20 mg BID PO Last administered on 07/27/16 08:13; Admin Dose 20 MG; Start 07/19/16 at 21:00 Carvedilol (Coreg) 12.5 mg BID PO Last administered on 07/27/16 08:14; Admin Dose 12.5 MG; Start 07/19/16 at 21:00 Insulin Glargine (Lantus) 26 unit DAILY@08 SC Last administered on 07/27/16 08 :21; Admin Dose 26 UNIT; Start 07/21/16 at 08:00 Diagnostic Test (Pha) (Accucheck) 1 ea 02 XX ; Start 07/21/16 at 02:00 Hydralazine HCl (Apresoline) 10 mg QID PO Last administered on 07/27/16 08:14 ; Admin Dose 10 MG; Start 07/21/16 at 09:00 Risperidone (Risperdal) 0.25 mg BID PO Last administered on 07/27/16 08:14; Admin Dose 0.25 MG; Start 07/26/16 at 21:00 TEETEE GRIDER MD Jul 27, 2016 10:46
[2016-07-27] MEDS ORDERED: ACETAMINOPHEN 325 MG TAB PO PRN (11:00)
[2016-07-27] MEDS: DULOXETINE 20 MG CAP DR PO SCH ×2 (11:00→12:19)
[2016-07-27] MEDS ORDERED: LACTULOSE 30ML CUP PO PRN (11:00)
[2016-07-27] MEDS ORDERED: LACTULOSE 30ML CUP PO ONE (11:00)
[2016-07-27] MEDS ORDERED: NALOXONE (0.4 MG/ML) INJ ONE (13:11)
[2016-07-27 13:18] LABS: AADO2 Arterial 29.5 mmHg (7.0-24.0); Allen Test ACCEPTAB; Arterial COHb 0.2 % (0.0-3.0); Arterial Fraction of Oxyhgb 94.9 % (93.0-99.0); Arterial MetHb 0.2 % (0.0-1.5); Arterial Total Hemglobin 17.4 g/dl (12.0-18.0); MODE ROOM AIR
--- NOTE | 2016-07-27 13:29 | QN ---
Documentation Comment Rapid response note Is a 66-year-old gentleman who has been admitted to [facility] with a past medical history of multiple CVA with residual left sided weakness, type II DM, essential hypertension, CAD s/p PCI x2, hypothyroidism, CHF diastolic dysfunction, hyperlipidemia, who presents with right sided weakness, and has been diagnosed with acute CVA and has been doing fairly well although this morning patient was found to be unresponsive with stable vitals. Status post sternal Rub and other means of treatment patient did not respond therefore rapid response was called and evaluated the patient and code stroke was called. Patient attending was contacted and this was discussed with him Examination: General: The patient is really overweight, Not responds to pain or verbal stimuli HEENT: Atraumatic, normocephalic. The pupils are equal and round and reactive to light bilaterally. Chest: Normal expansion of the thorax during inspiration Lungs: Clear to auscultation bilaterally Heart: Normal S1-S2, Regular rhythm and rate. Abdomen: Soft , nontender, nondistended , bowel sounds are present. Extremities: Normal to inspection, no edema no cyanosis Neurologic: Not obtainable since patient is not arousable At this time code stroke has been called and patient will obtain stat CT of the brain without contrast And patient will be transferred to ICU LALITHA GALEANO MD Jul 27, 2016 13:29
[2016-07-27] MEDS ORDERED: NALOXONE (0.4 MG/ML) INJ IV ONE (13:30)
--- NOTE | 2016-07-27 13:59 | RADRPT ---
PROCEDURE: CT Brain without contrast. CLINICAL INDICATION: Stroke TECHNIQUE: Routine CT scan of the brain was performed on a high resolution multi detector scanner without intravenous contrast. One or more of the following dose reduction techniques were used: Auto mated exposure control; Adjustment of the mA and/or kV according to patient size; Use of iterative r econstruction technique. CTDI = 45 mGy. DLP = 810 mGy-cm. COMPARISON: CT brain 07/25/2016 FINDINGS: Hemorrhage: No evidence of intracranial hemorrhage. Acute ischemic changes: No evidence of acute ischemic changes. Mass effect/Midline shift: None. Parenchymal volume: Mild central parenchymal volume loss is evident. Ventricular system: Concordant with parenchymal volume. Chronic changes: Similar appearance of chronic infarcts involving the bilateral basal ganglia, periv entricular white matter, right parietal lobe, left posterior cerebral artery distribution, right occ ipital lobe, left cerebellar hemisphere. There are numerous and confluent areas of significant low attenuation change within the supratentorial white matter most compatible with severe chronic microv ascular ischemic changes. Atherosclerotic calcifications of the cavernous portions of both internal carotid arteries are prese nt. Extracranial soft tissues: Unremarkable. Calvarium: No fractures. Paranasal sinuses: Visualized paranasal sinuses are clear. Mastoid air cells: Visualized mastoid air cells are clear. IMPRESSION: No acute intracranial abnormalities. Multifocal supratentorial and infratentorial chronic-appearing infarcts and severe chronic-appearing microvascular ischemic changes of the supratentorial white matter appear unchanged from the previou s examination. MRI of the brain may be useful for further evaluation. Results were discussed with Dr Nye by telephone at 1353 hours on 07/27/[address] José Antonio kirkpatrick RPTAT: AADD .José Antonio Crawford MD, MD Date Time Electronically viewed and signed by .José Antonio Crawford MD, MD on 07/27/2016 13:59 .B/
[2016-07-27 19:03] LABS: CREATININE 1.12 mg/dl (0.61-1.24)
[2016-07-27 19:04] LABS: ALBUMIN/GLOBULIN RATIO 1.21; BILIRUBIN,INDIRECT 0.6 mg/dl (0-1.1); BILIRUBIN,TOTAL 0.6 mg/dl (0.2-1.3); CALCIUM 9.7 mg/dl (8.4-10.2); TOTAL PROTEIN 7.3 g/dl (6.1-8.1)
[2016-07-27] MEDS: ATORVASTATIN 80 MG TAB PO SCH (21:44)
[2016-07-27] MEDS: PIPER-TAZO 3.375 GM IV (PMX) 100 ML IVPB SCH (22:00)
--- NOTE | 2016-07-27 23:06 | RADRPT ---
PROCEDURE: MR Brain without contrast. CLINICAL INDICATION: Acute CVA TECHNIQUE: An MRI of the brain was performed on a 1.5 natan scanner utilizing the following sequen alfred: Sagittal T1 weighted, axial T2 weighted, axial FLAIR, coronal GRE, and axial diffusion weighted with ADC mapping. COMPARISON: CT brain 07/27/2016, 07/25/2016, and MR brain 07/15/2016 FINDINGS: Multiple bilateral subcentimeter in foci of restricted diffusion in the sequeira radiata bilaterally, right centrum semiovale , right middle temporal and posterior temporal lobes, and medial occipital l obe, right parietal lobe, right splenium of the corpus callosum , left frontal lobe , and 1.7 x 0.8 cm focus of restricted diffusion in the medial aspect of the left temporal lobe. Focus of restricted diffusion in the right medulla and restiform body. These findings are compatible with multifocal ar eas of acute/subacute ischemic infarction. Remote ischemic infarcts in the left frontal periventricular white matter of sequeira radiata, anterio r corpus callosum and bilateral medial occipital lobes as well as left cerebellar hemisphere. Comparison to prior MRA of the brain from 07/15/2016 demonstrated multiple segments of vascular sten osis throughout the anterior posterior circulation which may reflect vasculopathy or atherosclerotic disease. Correlate clinically for source of micro emboli No evidence of hemorrhagic conversion on any of the areas of infarction. No significant edema, mass effect, or shift. No hypointense signal abnormalities are seen on the GRE images to suggest the presence of blood degr adation products. Extensive patchy and confluent areas of T2 signal hyperintensity throughout the periventricular, sub cortical white matter, ganga, and brainstem most compatible with sequelae of chronic microvascular is chemic injury. Marked prominence of the ventricles and subarachnoid spaces compatible with central cerebral and cerebellar volume loss. Mild mucosal thickening throughout the paranasal sinuses halima tible with minimal chronic inflammatory changes. The remaining posterior fossa contents, brainstem, seventh - eighth cranial nerve complexes, pituita ry axis, orbits, paranasal sinuses, and mastoid air cells are unremarkable. The visualized flow voids appear grossly normal. IMPRESSION: 1. Multiple bilateral foci of restricted diffusion throughout the cerebral hemispheres, right spleni um of the corpus callosum, and right medulla with extension into the restiform body compatible with areas of acute/subacute ischemic infarction. No evidence of hemorrhagic conversion, edema, mass eff ect, or shift. There is a history of prior multifocal ischemic infarcts and MRA demonstrating vascul ar stenoses of both the anterior posterior circulation which raises the question of vasculopathy harpreet dora atherosclerotic disease. 2. Remote ischemic infarcts in the left frontal periventricular white matter, sequeira radiata, anteri or corpus callosum, and bilateral medial occipital lobes as well as left cerebellar hemisphere. 3. Extensive chronic microvascular ischemic changes in the deep white matter and marked central and cerebellar volume loss. RPTAT:AAJJ Ranjit Camp Physician Date Time Electronically viewed and signed by Ranjit Capm Physician on 07/27/2016 23:05 ENE/
[2016-07-28] VITALS (27 sets, daily range): BP systolic 100–164; BP diastolic 46–110; PULSE 72–100; RESP 6–50
[2016-07-28] MEDS: ACCUCHECK XX SCH (02:00)
[2016-07-28 05:04] LABS: ADD SCAN DIFF NO
[2016-07-28 05:15] LABS: BASOPHILS % 0.4 % (0.0-2.0); EOSINOPHILS # 0.2 10^3/ul (0.0-0.5); EOSINOPHILS % 2.1 % (0.0-7.0); HEMATOCRIT 44.9 % (42.0-52.0); HEMOGLOBIN 15.9 g/dl (14.0-18.0); LYMPHOCYTES # 1.9 10^3/ul (0.8-2.9); LYMPHOCYTES % 17.5 % (15.0-51.0); MEAN CORPUSCULAR HEMOGLOBIN 30.6 pg (29.0-33.0); MEAN CORPUSCULAR HGB CONC 35.4 g/dl (32.0-37.0); MEAN CORPUSCULAR VOLUME 86.5 fl (82.0-101.0); MEAN PLATELET VOLUME 8.9 fl (7.4-10.4); MONOCYTE # 0.9 10^3/ul (0.3-0.9); MONOCYTES % 7.7 % (0.0-11.0); PLATELET COUNT 264 10^3/UL (140-415); RED BLOOD COUNT 5.19 10^6/ul (4.70-6.10); WHITE BLOOD COUNT 11.1 10^3/ul (4.8-10.8)
[2016-07-28 05:18] LABS: INR 0.98
[2016-07-28 05:21] LABS: PHOSPHORUS 4.3 mg/dl (2.5-4.9)
[2016-07-28 05:22] LABS: MAGNESIUM 2.4 mg/dl (1.7-2.5)
[2016-07-28 05:31] LABS: AADO2 Arterial 46.9 mmHg (7.0-24.0); Allen Test ACCEPTAB; Arterial Base Excess 2.5 mmol/L (-3.0-3); Arterial COHb 0.3 % (0.0-3.0); Arterial Fraction of Oxyhgb 91.1 % (93.0-99.0); Arterial HCO3 26.2 mmol/L (22.0-26.0); Arterial MetHb 0.2 % (0.0-1.5); Arterial Total Hemglobin 16.6 g/dl (12.0-18.0); MODE ROOM AIR
[2016-07-28 05:36] LABS: ALBUMIN 3.8 g/dl (3.3-4.9)
[2016-07-28 05:37] LABS: POTASSIUM 3.7 mmol/L (3.5-5.1)
[2016-07-28 05:39] LABS: ALBUMIN/GLOBULIN RATIO 1.08; BILIRUBIN,INDIRECT 0.7 mg/dl (0-1.1); BILIRUBIN,TOTAL 0.7 mg/dl (0.2-1.3); CREATININE 1.27 mg/dl (0.61-1.24); TOTAL PROTEIN 7.3 g/dl (6.1-8.1)
[2016-07-28 05:40] LABS: CALCIUM 9.6 mg/dl (8.4-10.2)
[2016-07-28] MEDS: PIPER-TAZO 3.375 GM IV (PMX) 100 ML IVPB SCH ×3 (06:41→20:51)
[2016-07-28] MEDS: INSULIN ASPART [NOVOLOG] 3 ML PEN SC SCH ×7 (07:35→20:49)
[2016-07-28 07:56] LABS: ADD UMIC YES; URINE BILIRUBIN (Dip) NEGATIVE (NEGATIVE); URINE BLOOD (Dip) 2+ (NEGATIVE); URINE COLOR LT. YELLOW (YELLOW); URINE GLUCOSE (Dip) NEGATIVE (NEGATIVE); URINE KETONES (Dip) NEGATIVE (NEGATIVE); URINE LEUKOCYTE ESTERASE (Dip) 2+ (NEGATIVE); URINE NITRITE (Dip) NEGATIVE (NEGATIVE); URINE TOTAL PROTEIN (Dip) 1+ (NEGATIVE); URINE UROBILINOGEN (Dip) 0.2 E.U./dL (0.1-1.0)
[2016-07-28 08:05] LABS: BACTERIA,URINE MODERATE; SQUAMOUS EPITHELIAL CELL,UR FEW
[2016-07-28] MEDS: MECLIZINE 12.5 MG TAB PO SCH ×4 (09:00→20:50)
[2016-07-28] MEDS: CLOPIDOGREL 75 MG TAB NGT SCH (09:09)
[2016-07-28] MEDS: ASPIRIN (EC) 81 MG TAB PO SCH (09:09)
[2016-07-28] MEDS: FAMOTIDINE 20 MG TAB PO SCH ×2 (09:10→20:50)
[2016-07-28] MEDS: AMLODIPINE 10 MG TAB PO SCH (09:10)
[2016-07-28] MEDS: DULOXETINE 20 MG CAP DR PO SCH (09:10)
[2016-07-28] MEDS: ENOXAPARIN 40 MG/0.4 ML SYG SC SCH (09:11)
[2016-07-28] MEDS ORDERED: ASPIRIN (EC) 325 MG TAB PO ONE (10:00)
[2016-07-28] MEDS: INSULIN GLARGINE [LANtus] 3 ML PEN SC SCH (16:40)
[2016-07-28] MEDS: ATORVASTATIN 80 MG TAB PO SCH (20:50)
--- NOTE | 2016-07-28 21:43 | PN ---
Date/Time of Note Date/Time of Note DATE: 07/28/16 TIME: 21:41 Assessment/Plan VTE Prophylaxis VTE Prophylaxis Intervention: SCD's Lines/Catheters IV Catheter Type (from Nrsg): Saline Lock Urinary Cath still in place: Yes Reason Cath still needed: other (indicate) (strict I/O) Assessment/Plan Assessment/Plan 1. Acute ischemic stroke -MRI Brain shows a 1.5 cm focus of acute/recent infarct in the right posterior frontal lobe. Smaller 6 mm focus of acute/recent of a in the right posterior medulla -cont ASA, Plavix and Statin SNF placement 2. S/p Fall episode yesterday, CT head negative, pt is in delirium requiring restraints - will give risperidone 0.5mg BID 2. Hypertensive Emergency-now stable -s/p Cardene gtt cont Thiazide and Coreg 12.5 BID 3. Type II DM - uncontrolled 4. CAD s/p PCI -cont ASA and Plavix 5. Hypothyroidism 6. Hx of Non-compliance - long conversation with patient held for taking Rx 7. Hyperlipidemia - lipid panel - statin therapy 8. YRN if stable in AM, will downgrade to telemetry floor Subjective 24 Hr Interval Summary Free Text/Dictation pt MRI showed acute/Subacute CVA , Risperidone has been stopped, now more alert Exam/Review of Systems Vital Signs Vitals Vital Signs Date Time Temp Pulse Resp B/P Pulse Ox O2 Delivery O2 Flow Rate FiO2 07/28/16 21:00 87 11 109/73 96 Room Air 07/28/16 20:15 98.7 07/28/16 17:00 2.0 Intake and Output 07/27/16 07/27/16 07/28/16 15:00 23:00 07:00 Intake Total 200 ml Output Total 175 ml 280 ml 170 ml Balance -175 ml -80 ml -170 ml Exam Constitutional: alert Respiratory: clear to auscultation Cardiovascular: regular rate and rhythm Gastrointestinal: soft, No distended Musculoskeletal: nl extremities to inspection Results Result Diagram: 07/28/1643907/28/16439 Results 24 hrs Laboratory Tests Test 07/27/16 21:49 07/28/16 04:30 07/28/16 04:40 07/28/16 05:00 Bedside Glucose 110 Activated Partial Thromboplast Time 28.0 INR International Normalized Ratio 0.98 Prothrombin Time 13.0 Prothrombin Time Ratio 1.0 Alanine Aminotransferase (ALT/SGPT) 19 Albumin 3.8 Albumin/Globulin Ratio 1.08 Alkaline Phosphatase 98 Anion Gap 19 H Aspartate Amino Transf (AST/SGOT) 19 Basophils # 0.0 Basophils % 0.4 Blood Urea Nitrogen 23 H Calcium Level 9.6 Carbon Dioxide Level 27 Chloride Level 101 Creatinine 1.27 H Direct Bilirubin 0.00 Eosinophils # 0.2 Eosinophils % 2.1 Globulin 3.50 H Glucose Level 112 Hematocrit 44.9 Hemoglobin 15.9 Indirect Bilirubin 0.7 Lymphocytes # 1.9 Lymphocytes % 17.5 Magnesium Level 2.4 Mean Corpuscular Hemoglobin 30.6 Mean Corpuscular Hemoglobin Concent 35.4 Mean Corpuscular Volume 86.5 Mean Platelet Volume 8.9 Monocytes # 0.9 Monocytes % 7.7 Neutrophils # 8.0 H Neutrophils % 72.0 Nucleated Red Blood Cells # 0.0 Nucleated Red Blood Cells % 0.0 Phosphorus Level 4.3 Platelet Count 264 Potassium Level 3.7 Red Blood Count 5.19 Red Cell Distribution Width 12.0 Sodium Level 143 Total Bilirubin 0.7 Total Protein 7.3 White Blood Count 11.1 H Arterial Blood HCO3 26.2 H Arterial Blood Base Excess 2.5 Arterial Blood Oxygen Saturation 91.6 L Artemio Test ACCEPTAB Arterial Blood Gas Puncture Site Right Radial Arterial Blood Carboxyhemoglobin 0.3 Arterial Blood Date Drawn 07/28/2016 5:24:11 AM Arterial Blood Methemoglobin 0.2 Arterial Blood pCO2 (Temp correct) 37.6 Arterial Blood pH (Temp corrected) 7.461 H Arterial Blood pO2 (Temp corrected) 57.8 L Blood Gas A-a O2 Differential 46.9 H Blood Gas Modality ROOM AIR Blood Gas Notified Time 07/28/2016 5:31:23 AM Blood Gas Notified Whom BR Blood Gas Specimen Source Blood arterial Blood Gas Temperature 37.0 FiO2 21.0 Oxyhemoglobin Percent 91.1 L Total Hemoglobin 16.6 Test 07/28/16 08:05 07/28/16 12:29 07/28/16 16:38 07/28/16 20:48 Bedside Glucose 131 151 188 162 Medications Medications Current Medications Flumazenil (Romazicon) 0.2 mg Q1M PRN IV BENZODIAZEPINE OVERDOSE; Start at 00:00 Ondansetron HCl (Zofran Inj) 4 mg Q6H PRN IV NAUSEA AND/OR VOMITING Last administered on 07/17/16 08:44; Admin Dose 4 MG; Start 07/15/16 at 00:00 Nitroglycerin (Nitroglycerin (Sl Tab) 0.4 Mg) 1 tab Q5M PRN SL CHEST PAIN; Start 07/15/16 at 00:00 Acetaminophen (Tylenol Supp) 650 mg Q4H PRN IN PAIN LEVEL 1-3 OR FEVER; Start 07/15/16 at 00:00 Morphine Sulfate (morphine) 2 mg Q4H PRN IV PAIN LEVEL 7-10; Start 07/15/16 at 00:00 Lorazepam (Ativan) 1 mg Q2H PRN IV ANXIETY Last administered on 07/25/16 17:35 ; Admin Dose 1 MG; Start 07/15/16 at 00:00 Bisacodyl (Dulcolax Supp) 10 mg DAILY PRN IN CONSTIPATION; Start 07/15/16 at 00 :00 Enoxaparin Sodium (Lovenox) 40 mg DAILY SC Last administered on 07/28/16 09:11 ; Admin Dose 40 MG; Start 07/15/16 at 12:00 Miscellaneous Information 1 ea NOTE XX ; Start 07/15/16 at 17:00 Glucose (Glutose) 15 gm Q15M PRN PO DECREASED GLUCOSE; Start 07/15/16 at 17:00 Glucose (Glutose) 22.5 gm Q15M PRN PO DECREASED GLUCOSE; Start 07/15/16 at 17: 00 Dextrose (D50w Syringe) 25 ml Q15M PRN IV DECREASED GLUCOSE Last administered on 07/25/16 17:28; Admin Dose 25 ML; Start 07/15/16 at 17:00 Dextrose (D50w Syringe) 50 ml Q15M PRN IV DECREASED GLUCOSE; Start 07/15/16 at 17:00 Glucagon (Glucagen) 1 mg Q15M PRN IM DECREASED GLUCOSE; Start 07/15/16 at 17:00 Glucose (Glutose) 15 gm Q15M PRN BUCCAL DECREASED GLUCOSE; Start 07/15/16 at 17 :00 Atorvastatin Calcium (Lipitor) 80 mg HS PO Last administered on 07/28/16 20:50 ; Admin Dose 80 MG; Start 07/15/16 at 21:00 Clopidogrel Bisulfate (plaVIX) 75 mg DAILY NGT Last administered on 07/28/16 09:09; Admin Dose 75 MG; Start 07/16/16 at 09:00 Amlodipine Besylate (Norvasc) 10 mg DAILY PO Last administered on 07/28/16 09: 10; Admin Dose 10 MG; Start 07/16/16 at 14:00 Labetalol HCl (Labetalol) 20 mg Q2H PRN IV sbp >170 Last administered on 06:26; Admin Dose 20 MG; Start 07/16/16 at 14:00 Meclizine HCl (Antivert) 12.5 mg TID PO Last administered on 07/28/16 20:50; Admin Dose 12.5 MG; Start 07/17/16 at 21:00 Hydralazine HCl (Apresoline) 10 mg Q2H PRN IV SBP > 170 Last administered on 22:53; Admin Dose 10 MG; Start 07/19/16 at 09:00 Famotidine (Pepcid) 20 mg BID PO Last administered on 07/28/16 20:50; Admin Dose 20 MG; Start 07/19/16 at 21:00 Carvedilol (Coreg) 12.5 mg BID PO Last administered on 07/28/16 20:51; Admin Dose 12.5 MG; Start 07/19/16 at 21:00 Insulin Glargine (Lantus) 26 unit DAILY@08 SC Last administered on 07/28/16 16 :40; Admin Dose 26 UNIT; Start 07/21/16 at 08:00 Diagnostic Test (Pha) (Accucheck) 1 ea 02 XX ; Start 07/21/16 at 02:00 Hydralazine HCl (Apresoline) 10 mg QID PO Last administered on 07/28/16 20:50 ; Admin Dose 10 MG; Start 07/21/16 at 09:00 Acetaminophen (Tylenol Tab) 650 mg Q4H PRN PO PAIN AND OR ELEVATED TEMP Last administered on 07/27/16 12:27; Admin Dose 650 MG; Start 07/27/16 at 11:00 Lactulose (Enulose) 20 gm BID PRN PO CONSTIPATION; Start 07/27/16 at 11:00 Duloxetine HCl 20 mg 20 mg DAILY PO Last administered on 07/28/16 09:10; Admin Dose 20 MG; Start 07/27/16 at 11:00 Piperacillin Sod/ Tazobactam Sod (Zosyn 3.375gm/ 100 ml (Pmx)) 100 ml @ 200 mls /hr Q8 IVPB Last administered on 07/28/16t 20:51; Admin Dose 200 MLS/HR; Start 07/27/16 at 22:00 Aspirin (Ecotrin) 325 mg DAILY PO ; Start 07/29/16 at 09:00 TETEEE GRIDER MD Jul 28, 2016 21:43
[2016-07-29] VITALS (25 sets, daily range): BP systolic 102–133; BP diastolic 59–87; PULSE 73–86; RESP 8–19
[2016-07-29] MEDS: ACCUCHECK XX SCH (02:00)
--- NOTE | 2016-07-29 03:20 | CONS ---
DATE OF ADMISSION: 07/15/2016 DATE OF CONSULTATION: REFERRING PHYSICIAN: Dr. Bangura Thank you for asking me to see the patient with you. HISTORY OF PRESENT ILLNESS: The patient is 66-year-old male with past medical history of hypertensi on, diabetes type 2, coronary artery disease, hypothyroidism, congestive heart failure with ____ dys function, hyperlipidemia, and noncompliance to his medication. The patient was admitted with gait d ifficulty, dizziness, right leg weakness on 07/15/2016 for which the patient, at that time, had stro ke at the right middle and right sequeira radiata for which the patient was on aspirin 81 mg on which the patient is getting worse for which he has an order for MRI over his brain which was done last ni [facility] and showed multiple bilateral foci of corpus callosum, right ____, foreign body, with a remote i nfarction of the left frontoparietal sequeira radiata anterior corpus callosum, bilateral medial occip ital lobe, as well as cerebellar hemisphere for which I got a call about him for more evaluation and treatment. MEDICATIONS: The patient on current medications which include 1. Aspirin 325 mg once a day. 2. Tylenol 650 mg once a day. 3. Cymbalta 20 mg once a day. 4. Hydralazine 10 mg q.i.d. 5. Lantus 26 units as needed. 6. Pepcid 20 mg once a day. 7. Carvedilol. 8. Coreg 12.5 mg once a daily. 9. Meclizine 12.5 mg once a day. 10. Norvasc 10 mg once a day. 11. Lipitor 20 mg once a day. 12. Plavix 75 mg once a day. 13. Lipitor 80 mg once a day. PHYSICAL EXAMINATION: GENERAL: On exam today, the patient is alert, awake, and follows simple commands; however, difficul t for second or third-step commands. CRANIAL NERVES: Cranial nerve II: Pupils equal on both sides, reactive to light. Cranial nerves I II, IV, and : Extraocular muscles intact. No nystagmus. Cranial nerve V: Equal sensation to fa ce. Cranial nerve VII: Symmetrical face. Cranial nerve VIII: Decreased hearing bilaterally. Cloth Shrinker nial nerve IX and X: Elevates palate. Cranial nerve XI: Elevates shoulder 5/5. Cranial nerve XII : With straight tongue. 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 Sensation decreased for glove and sock area for light touc h and temperature. COORDINATION: [id number] test intact. No nystagmus. HEART: Regular rate and rhythm. LUNGS: Equal breath sounds. ABDOMEN: Soft, relaxed, nondistended. No tenderness. ASSESSMENT AND PLAN 1. The patient is 66 years old with acute onset of stroke. The patient is already on aspirin and P lavix. I will discontinue the aspirin and start him on Aggrenox to prevent him from having new stro kes, especially as the patient has multiple risk factors of stroke which include hyperlipidemia, hyp ertension, coronary artery disease, and old strokes in spite of the medication. 2. Follow up the patient with lipid panel. The patient already on Lipitor 80 mg. Educated the pat ient by the reversal print inspector and cholesterol effect of the stroke. 3. History of hypertension. Keep the blood pressure at the level of 140/90 or less to avoid any ex tension of the stroke. 4. We will follow up the patient with hemoglobin A1c, sliding scale insulin, and teach the patient about the control of his blood sugar. 5. Follow up the patient with ICU followed by telemetry. 6. Possibility of underlying seizure activity. Follow up the patient with electroencephalogram. Again, thank you for asking me to see the patient with you. Dictated By: JENNYFER PEREZ/MAURO Conf#: [id number] DID#: [id number]
[2016-07-29] MEDS: PIPER-TAZO 3.375 GM IV (PMX) 100 ML IVPB SCH ×3 (05:54→20:37)
[2016-07-29 06:46] LABS: POTASSIUM 3.5 mmol/L (3.5-5.1)
[2016-07-29 06:47] LABS: INR 1.08; PT RATIO 1.1
[2016-07-29 06:48] LABS: CREATININE 1.66 mg/dl (0.61-1.24); PARTIAL THROMBOPLASTIN TIME 26.9 Sec (25.0-35.0)
[2016-07-29 06:49] LABS: CALCIUM 9.2 mg/dl (8.4-10.2)
[2016-07-29] MEDS: INSULIN ASPART [NOVOLOG] 3 ML PEN SC SCH ×7 (07:35→20:39)
[2016-07-29] MEDS ORDERED: ASPIRIN (EC) 325 MG TAB PO SCH (09:00)
[2016-07-29] MEDS: MECLIZINE 12.5 MG TAB PO SCH ×3 (09:03→20:29)
[2016-07-29] MEDS: FAMOTIDINE 20 MG TAB PO SCH ×2 (09:03→20:29)
[2016-07-29] MEDS: DIPYRIDAMOLE/ASPIRIN (SR) CAP PO SCH ×2 (09:04→20:29)
[2016-07-29] MEDS: AMLODIPINE 10 MG TAB PO SCH (09:04)
[2016-07-29] MEDS: CLOPIDOGREL 75 MG TAB NGT SCH (09:04)
[2016-07-29] MEDS: DULOXETINE 20 MG CAP DR PO SCH (09:04)
[2016-07-29] MEDS: INSULIN GLARGINE [LANtus] 3 ML PEN SC SCH (09:05)
[2016-07-29] MEDS: ENOXAPARIN 40 MG/0.4 ML SYG SC SCH (09:05)
--- NOTE | 2016-07-29 09:23 | PN ---
Date/Time of Note Date/Time of Note DATE: 07/29/16 TIME: 09:22 Assessment/Plan VTE Prophylaxis VTE Prophylaxis Intervention: SCD's Lines/Catheters IV Catheter Type (from Nrsg): Saline Lock Urinary Cath still in place: Yes Reason Cath still needed: other (indicate) (strict I/O ) Assessment/Plan Assessment/Plan 1. Acute ischemic stroke -MRI Brain shows a 1.5 cm focus of acute/recent infarct in the right posterior frontal lobe. Smaller 6 mm focus of acute/recent of a in the right posterior medulla -cont ASA, Plavix and Statin SNF placement 2. S/p Fall episode yesterday, CT head negative, pt is in delirium requiring restraints - will give risperidone 0.5mg BID 2. Hypertensive Emergency-now stable -s/p Cardene gtt cont Thiazide and Coreg 12.5 BID 3. Type II DM - uncontrolled 4. CAD s/p PCI -cont ASA and Plavix 5. Hypothyroidism 6. Hx of Non-compliance - long conversation with patient held for taking Rx 7. Hyperlipidemia - lipid panel - statin therapy 8. YRN s/p neurology consult , downgrade to telemetry floor Subjective 24 Hr Interval Summary Free Text/Dictation pt remained stable, on NG tube , waiting for speech therapy consult Exam/Review of Systems Vital Signs Vitals Vital Signs Date Time Temp Pulse Resp B/P Pulse Ox O2 Delivery O2 Flow Rate FiO2 07/29/16 07:00 80 11 129/75 90 Room Air 07/29/16 04:00 98.1 07/28/16 17:00 2.0 Intake and Output 07/28/16 07/28/16 07/29/16 15:00 23:00 07:00 Intake Total 340 ml 100 ml 0 ml Output Total 255 ml 95 ml 200 ml Balance 85 ml 5 ml -200 ml Exam Constitutional: alert Respiratory: clear to auscultation Cardiovascular: regular rate and rhythm Gastrointestinal: soft, No distended Musculoskeletal: nl extremities to inspection Results Result Diagram: 07/28/16 0440 07/29/16 0529 Results 24 hrs Laboratory Tests Test 07/28/16 12:29 07/28/16 16:38 07/28/16 20:48 07/29/16 05:29 Bedside Glucose 151 188 162 Activated Partial Thromboplast Time 26.9 Anion Gap 19 H Blood Urea Nitrogen 37 #H Calcium Level 9.2 Carbon Dioxide Level 29 Chloride Level 101 Creatinine 1.66 H Glucose Level 112 INR International Normalized Ratio 1.08 Potassium Level 3.5 Prothrombin Time 14.0 Prothrombin Time Ratio 1.1 Sodium Level 145 H Test 07/29/16 09:03 Bedside Glucose 134 Medications Medications Current Medications Flumazenil (Romazicon) 0.2 mg Q1M PRN IV BENZODIAZEPINE OVERDOSE; Start at 00:00 Ondansetron HCl (Zofran Inj) 4 mg Q6H PRN IV NAUSEA AND/OR VOMITING Last administered on 07/17/16 08:44; Admin Dose 4 MG; Start 07/15/16 at 00:00 Nitroglycerin (Nitroglycerin (Sl Tab) 0.4 Mg) 1 tab Q5M PRN SL CHEST PAIN; Start 07/15/16 at 00:00 Acetaminophen (Tylenol Supp) 650 mg Q4H PRN [place] PAIN LEVEL 1-3 OR FEVER; Start 07/15/16 at 00:00 Morphine Sulfate (morphine) 2 mg Q4H PRN IV PAIN LEVEL 7-10; Start 07/15/16 at 00:00 Lorazepam (Ativan) 1 mg Q2H PRN IV ANXIETY Last administered on 07/25/16 17:35 ; Admin Dose 1 MG; Start 07/15/16 at 00:00 Bisacodyl (Dulcolax Supp) 10 mg DAILY PRN [place] CONSTIPATION; Start 07/15/16 at 00 :00 Enoxaparin Sodium (Lovenox) 40 mg DAILY SC Last administered on 07/29/16 09:05 ; Admin Dose 40 MG; Start 07/15/16 at 12:00 Miscellaneous Information 1 ea NOTE XX ; Start 07/15/16 at 17:00 Glucose (Glutose) 15 gm Q15M PRN PO DECREASED GLUCOSE; Start 07/15/16 at 17:00 Glucose (Glutose) 22.5 gm Q15M PRN PO DECREASED GLUCOSE; Start 07/15/16 at 17: 00 Dextrose (D50w Syringe) 25 ml Q15M PRN IV DECREASED GLUCOSE Last administered on 07/25/16 17:28; Admin Dose 25 ML; Start 07/15/16 at 17:00 Dextrose (D50w Syringe) 50 ml Q15M PRN IV DECREASED GLUCOSE; Start 07/15/16 at 17:00 Glucagon (Glucagen) 1 mg Q15M PRN IM DECREASED GLUCOSE; Start 07/15/16 at 17:00 Glucose (Glutose) 15 gm Q15M PRN BUCCAL DECREASED GLUCOSE; Start 07/15/16 at 17 :00 Atorvastatin Calcium (Lipitor) 80 mg HS PO Last administered on 07/28/16 20:50 ; Admin Dose 80 MG; Start 07/15/16 at 21:00 Clopidogrel Bisulfate (plaVIX) 75 mg DAILY NGT Last administered on 07/29/16 09:04; Admin Dose 75 MG; Start 07/16/16 at 09:00 Amlodipine Besylate (Norvasc) 10 mg DAILY PO Last administered on 07/29/16 09: 04; Admin Dose 10 MG; Start 07/16/16 at 14:00 Labetalol HCl (Labetalol) 20 mg Q2H PRN IV sbp >170 Last administered on 06:26; Admin Dose 20 MG; Start 07/16/16 at 14:00 Meclizine HCl (Antivert) 12.5 mg TID PO Last administered on 07/29/16 09:03; Admin Dose 12.5 MG; Start 07/17/16 at 21:00 Hydralazine HCl (Apresoline) 10 mg Q2H PRN IV SBP > 170 Last administered on 22:53; Admin Dose 10 MG; Start 07/19/16 at 09:00 Famotidine (Pepcid) 20 mg BID PO Last administered on 07/29/16 09:03; Admin Dose 20 MG; Start 07/19/16 at 21:00 Carvedilol (Coreg) 12.5 mg BID PO Last administered on 07/29/16 09:04; Admin Dose 12.5 MG; Start 07/19/16 at 21:00 Insulin Glargine (Lantus) 26 unit DAILY@08 SC Last administered on 07/29/16 09 :05; Admin Dose 26 UNIT; Start 07/21/16 at 08:00 Diagnostic Test (Pha) (Accucheck) 1 ea 02 XX ; Start 07/21/16 at 02:00 Hydralazine HCl (Apresoline) 10 mg QID PO Last administered on 07/29/16 09:04 ; Admin Dose 10 MG; Start 07/21/16 at 09:00 Acetaminophen (Tylenol Tab) 650 mg Q4H PRN PO PAIN AND OR ELEVATED TEMP Last administered on 07/27/16 12:27; Admin Dose 650 MG; Start 07/27/16 at 11:00 Lactulose (Enulose) 20 gm BID PRN PO CONSTIPATION; Start 07/27/16 at 11:00 Duloxetine HCl 20 mg 20 mg DAILY PO Last administered on 07/29/16 09:04; Admin Dose 20 MG; Start 07/27/16 at 11:00 Piperacillin Sod/ Tazobactam Sod (Zosyn 3.375gm/ 100 ml (Pmx)) 100 ml @ 200 mls /hr Q8 IVPB Last administered on 07/29/16 05:54; Admin Dose 200 MLS/HR; Start 07/27/16 at 22:00 Dipyridamole/ Aspirin (Aggrenox) 1 cap BID PO Last administered on 07/29/16 09 :04; Admin Dose 1 CAP; Start 07/29/16 at 09:00 TEETEE GRIDER MD Jul 29, 2016 09:23
--- NOTE | 2016-07-29 10:20 | RADRPT ---
PROCEDURE: XR Chest. CLINICAL INDICATION: NG tube placement. TECHNIQUE: Chest x-ray, single view. COMPARISON: 07/15/2016. FINDINGS: The cardiomediastinal silhouette is normal. Aortic arch atherosclerotic calcification is present. Low lung volumes are observed. Basilar atelectatic changes persist. The enteric tube terminates wi thin the body of the stomach. Osseous structures appear demineralized. The visualized upper abdome n is unremarkable. IMPRESSION: Hypoinflation with persistent basilar atelectatic changes. RPTAT: HLST .Leatha Liriano MD, MD Date Time Electronically viewed and signed by .Leatha Liriano MD, MD on 07/29/2016 10:19 .T/
[2016-07-29] MEDS ORDERED: ALBUTEROL 0.083% (NEB) 2.5 MG/3 ML AMP INH PRN (16:30)
[2016-07-29] MEDS ORDERED: ALBUTEROL 0.083% (NEB) 2.5 MG/3 ML AMP NEB PRN (16:32)
[2016-07-29] MEDS: ATORVASTATIN 80 MG TAB PO SCH (20:29)
[2016-07-30] VITALS (14 sets, daily range): BP systolic 108–135; BP diastolic 56–65; PULSE 72–80; RESP 16–19
[2016-07-30] MEDS: ACCUCHECK XX SCH (02:00)
[2016-07-30] MEDS: PIPER-TAZO 3.375 GM IV (PMX) 100 ML IVPB SCH ×3 (05:54→21:13)
[2016-07-30 06:49] LABS: ADD SCAN DIFF NO
[2016-07-30 07:02] LABS: BASOPHILS % 0.3 % (0.0-2.0); EOSINOPHILS # 0.1 10^3/ul (0.0-0.5); EOSINOPHILS % 1.1 % (0.0-7.0); HEMATOCRIT 39.1 % (42.0-52.0); HEMOGLOBIN 13.4 g/dl (14.0-18.0); LYMPHOCYTES # 1.8 10^3/ul (0.8-2.9); LYMPHOCYTES % 16.4 % (15.0-51.0); MEAN CORPUSCULAR HEMOGLOBIN 30.4 pg (29.0-33.0); MEAN CORPUSCULAR HGB CONC 34.3 g/dl (32.0-37.0); MEAN CORPUSCULAR VOLUME 88.7 fl (82.0-101.0); MEAN PLATELET VOLUME 9.2 fl (7.4-10.4); MONOCYTE # 0.8 10^3/ul (0.3-0.9); MONOCYTES % 7.1 % (0.0-11.0); NEUTROPHIL # 8.4 10^3/ul (1.6-7.5); NEUTROPHILS % 74.8 % (39.0-77.0); PLATELET COUNT 253 10^3/UL (140-415); RED BLOOD COUNT 4.41 10^6/ul (4.70-6.10); RED CELL DISTRIBUTION WIDTH 12.1 % (11.5-14.5); WHITE BLOOD COUNT 11.2 10^3/ul (4.8-10.8)
[2016-07-30 07:13] LABS: INR 1.01; PROTIME 13.3 Sec (12.2-14.2)
[2016-07-30 07:17] LABS: POTASSIUM 3.6 mmol/L (3.5-5.1)
[2016-07-30 07:19] LABS: CREATININE 1.7 mg/dl (0.61-1.24)
[2016-07-30 07:20] LABS: CALCIUM 9.1 mg/dl (8.4-10.2)
[2016-07-30] MEDS: FAMOTIDINE 20 MG TAB PO SCH ×2 (09:02→21:12)
[2016-07-30] MEDS: AMLODIPINE 10 MG TAB PO SCH (09:02)
[2016-07-30] MEDS: MECLIZINE 12.5 MG TAB PO SCH ×3 (09:02→21:12)
[2016-07-30] MEDS: DULOXETINE 20 MG CAP DR PO SCH (09:02)
[2016-07-30] MEDS: CLOPIDOGREL 75 MG TAB NGT SCH (09:02)
[2016-07-30] MEDS: DIPYRIDAMOLE/ASPIRIN (SR) CAP PO SCH ×2 (09:03→21:12)
[2016-07-30] MEDS: INSULIN ASPART [NOVOLOG] 3 ML PEN SC SCH ×7 (09:04→21:00)
[2016-07-30] MEDS: ENOXAPARIN 40 MG/0.4 ML SYG SC SCH (09:04)
[2016-07-30] MEDS: INSULIN GLARGINE [LANtus] 3 ML PEN SC SCH (09:05)
--- NOTE | 2016-07-30 15:46 | PN ---
Date/Time of Note Date/Time of Note DATE: 07/30/16 TIME: 15:45 Assessment/Plan VTE Prophylaxis VTE Prophylaxis Intervention: SCD's Lines/Catheters IV Catheter Type (from Nrsg): Saline Lock Urinary Cath still in place: Yes Reason Cath still needed: urinary retention Assessment/Plan Assessment/Plan 1. Acute ischemic stroke -MRI Brain shows a 1.5 cm focus of acute/recent infarct in the right posterior frontal lobe. Smaller 6 mm focus of acute/recent of a in the right posterior medulla -cont ASA, Plavix and Statin SNF placement 2. S/p Fall episode yesterday, CT head negative, pt is in delirium requiring restraints - will give risperidone 0.5mg BID 2. Hypertensive Emergency-now stable -s/p Cardene gtt cont Thiazide and Coreg 12.5 BID 3. Type II DM - uncontrolled 4. CAD s/p PCI -cont ASA and Plavix 5. Hypothyroidism 6. Hx of Non-compliance - long conversation with patient held for taking Rx 7. Hyperlipidemia - lipid panel - statin therapy 8. YRN s/p neurology consult , downgrade to telemetry floor Subjective 24 Hr Interval Summary Free Text/Dictation pt tansfered to Telemetry yesterday,Bp stable Exam/Review of Systems Vital Signs Vitals Vital Signs Date Time Temp Pulse Resp B/P Pulse Ox O2 Delivery O2 Flow Rate FiO2 07/30/16 12:00 73 07/30/16 11:37 97.5 19 108/57 92 07/29/16 16:53 Room Air 07/28/16 17:00 2.0 Intake and Output 07/29/16 07/29/16 07/30/16 15:00 23:00 07:00 Intake Total 300 ml Output Total 405 ml 80 ml 500 ml Balance -405 ml -80 ml -200 ml Results Result Diagram: 07/30/16 0611 07/30/16 0611 Results 24 hrs Laboratory Tests Test 07/29/16 17:22 07/29/16 20:12 07/30/16 06:11 07/30/16 07:48 Bedside Glucose 135 223 H 195 Activated Partial Thromboplast Time 25.0 Anion Gap 15 Basophils # 0.0 Basophils % 0.3 Blood Urea Nitrogen 46 H Calcium Level 9.1 Carbon Dioxide Level 31 Chloride Level 103 Creatinine 1.70 H Eosinophils # 0.1 Eosinophils % 1.1 Glucose Level 181 Hematocrit 39.1 L Hemoglobin 13.4 L INR International Normalized Ratio 1.01 Lymphocytes # 1.8 Lymphocytes % 16.4 Mean Corpuscular Hemoglobin 30.4 Mean Corpuscular Hemoglobin Concent 34.3 Mean Corpuscular Volume 88.7 Mean Platelet Volume 9.2 Monocytes # 0.8 Monocytes % 7.1 Neutrophils # 8.4 H Neutrophils % 74.8 Nucleated Red Blood Cells # 0.0 Nucleated Red Blood Cells % 0.0 Platelet Count 253 Potassium Level 3.6 Prothrombin Time 13.3 Prothrombin Time Ratio 1.0 Red Blood Count 4.41 L Red Cell Distribution Width 12.1 Sodium Level 145 H White Blood Count 11.2 H Test 07/30/16 11:57 Bedside Glucose 179 Medications Medications Current Medications Flumazenil (Romazicon) 0.2 mg Q1M PRN IV BENZODIAZEPINE OVERDOSE; Start at 00:00 Ondansetron HCl (Zofran Inj) 4 mg Q6H PRN IV NAUSEA AND/OR VOMITING Last administered on 07/17/16 08:44; Admin Dose 4 MG; Start 07/15/16 at 00:00 Nitroglycerin (Nitroglycerin (Sl Tab) 0.4 Mg) 1 tab Q5M PRN SL CHEST PAIN; Start 07/15/16 at 00:00 Acetaminophen (Tylenol Supp) 650 mg Q4H PRN [place] PAIN LEVEL 1-3 OR FEVER; Start 07/15/16 at 00:00 Morphine Sulfate (morphine) 2 mg Q4H PRN IV PAIN LEVEL 7-10; Start 07/15/16 at 00:00 Lorazepam (Ativan) 1 mg Q2H PRN IV ANXIETY Last administered on 07/25/16 17:35 ; Admin Dose 1 MG; Start 07/15/16 at 00:00 Bisacodyl (Dulcolax Supp) 10 mg DAILY PRN [place] CONSTIPATION; Start 07/15/16 at 00 :00 Enoxaparin Sodium (Lovenox) 40 mg DAILY SC Last administered on 07/30/16 09:04 ; Admin Dose 40 MG; Start 07/15/16 at 12:00 Miscellaneous Information 1 ea NOTE XX ; Start 07/15/16 at 17:00 Glucose (Glutose) 15 gm Q15M PRN PO DECREASED GLUCOSE; Start 07/15/16 at 17:00 Glucose (Glutose) 22.5 gm Q15M PRN PO DECREASED GLUCOSE; Start 07/15/16 at 17: 00 Dextrose (D50w Syringe) 25 ml Q15M PRN IV DECREASED GLUCOSE Last administered on 07/25/16 17:28; Admin Dose 25 ML; Start 07/15/16 at 17:00 Dextrose (D50w Syringe) 50 ml Q15M PRN IV DECREASED GLUCOSE; Start 07/15/16 at 17:00 Glucagon (Glucagen) 1 mg Q15M PRN IM DECREASED GLUCOSE; Start 07/15/16 at 17:00 Glucose (Glutose) 15 gm Q15M PRN BUCCAL DECREASED GLUCOSE; Start 07/15/16 at 17 :00 Atorvastatin Calcium (Lipitor) 80 mg HS PO Last administered on 07/29/16 20:29 ; Admin Dose 80 MG; Start 07/15/16 at 21:00 Clopidogrel Bisulfate (plaVIX) 75 mg DAILY NGT Last administered on 07/30/16 09:02; Admin Dose 75 MG; Start 07/16/16 at 09:00 Amlodipine Besylate (Norvasc) 10 mg DAILY PO Last administered on 07/30/16 09: 02; Admin Dose 10 MG; Start 07/16/16 at 14:00 Labetalol HCl (Labetalol) 20 mg Q2H PRN IV sbp >170 Last administered on 06:26; Admin Dose 20 MG; Start 07/16/16 at 14:00 Meclizine HCl (Antivert) 12.5 mg TID PO Last administered on 07/30/16 12:20; Admin Dose 12.5 MG; Start 07/17/16 at 21:00 Hydralazine HCl (Apresoline) 10 mg Q2H PRN IV SBP > 170 Last administered on 22:53; Admin Dose 10 MG; Start 07/19/16 at 09:00 Famotidine (Pepcid) 20 mg BID PO Last administered on 07/30/16 09:02; Admin Dose 20 MG; Start 07/19/16 at 21:00 Carvedilol (Coreg) 12.5 mg BID PO Last administered on 07/30/16 09:03; Admin Dose 12.5 MG; Start 07/19/16 at 21:00 Insulin Glargine (Lantus) 26 unit DAILY@08 SC Last administered on 07/30/16 09 :05; Admin Dose 26 UNIT; Start 07/21/16 at 08:00 Diagnostic Test (Pha) (Accucheck) 1 ea 02 XX ; Start 07/21/16 at 02:00 Hydralazine HCl (Apresoline) 10 mg QID PO Last administered on 07/30/16 09:02 ; Admin Dose 10 MG; Start 07/21/16 at 09:00 Acetaminophen (Tylenol Tab) 650 mg Q4H PRN PO PAIN AND OR ELEVATED TEMP Last administered on 07/27/16 12:27; Admin Dose 650 MG; Start 07/27/16 at 11:00 Lactulose (Enulose) 20 gm BID PRN PO CONSTIPATION; Start 07/27/16 at 11:00 Duloxetine HCl 20 mg 20 mg DAILY PO Last administered on 07/30/16 09:02; Admin Dose 20 MG; Start 07/27/16 at 11:00 Piperacillin Sod/ Tazobactam Sod (Zosyn 3.375gm/ 100 ml (Pmx)) 100 ml @ 200 mls /hr Q8 IVPB Last administered on 07/30/16 15:01; Admin Dose 200 MLS/HR; Start 07/27/16 at 22:00 Dipyridamole/ Aspirin (Aggrenox) 1 cap BID PO Last administered on 07/30/16 09 :03; Admin Dose 1 CAP; Start 07/29/16 at 09:00 TEETEE GRIDER MD Jul 30, 2016 15:45
--- NOTE | 2016-07-30 17:39 | SP ---
DATE OF PROCEDURE: 07/30/2016 REFERRING PHYSICIAN: Dr. Bangura. Thank you for asking me to see the patient with you. TECHNIQUE: EEG done using 10-20 International electrode system with photic stimulation. FINDINGS: Bilateral occipital hemisphere view shows delta and theta waves, medium sized, low amplit ude, asymmetric bilateral. Photic stimulation done did elicit a drive. Some electromyogram artifac t recorded. No epileptiform discharge or seizure activity is recorded. IMPRESSION: This is an abnormal electroencephalogram, showed generalized slowing consistent with a history of underlying encephalopathy. No epileptiform discharge or seizure activity is recorded. F ollowup EEG may be needed if clinically indicated. Again, thank you for asking me to see the patient with you. Dictated By: JENNYFER WILEY MD NA/NTS Conf#: [id number] DID#: [id number] CC: TIERRA CAMARILLO MD;*EndCC*
--- NOTE | 2016-07-30 18:33 | SP ---
DATE OF PROCEDURE: 07/30/2016 REFERRING PHYSICIAN: Dr. Bangura, Dr. Edwards and Dr. Marroquin. Thank you for asking me to see the patient. HISTORY OF PRESENT ILLNESS: The patient is a 66-year-old male with a new onset of stroke in which t he patient start on Aggrenox plus Plavix to stay away from a stroke in which the patient had multipl e strokes in the past. He was on aspirin and Plavix which the patient failed. We changed the medic ation from aspirin to Aggrenox plus the Plavix. The patient has a history of hypertension, dyslipid emia, coronary artery disease, congestive heart failure, hypertension. The patient was unfamiliar w ith his medication. He has a history of stroke in the past multiple times in which I evaluated him with electroencephalogram for possible seizure activity as well. MEDICATIONS: His current medications include: 1. Aggrenox twice a day. 2. Plavix 75 mg once a day. 3. Lantus 26 units once a day. 4. Cymbalta 20 mg once a day. 5. Tylenol 650 mg once a day. 6. Pepcid 20 mg once a day. 7. Coreg 12.5 mg once a day. 8. Meclizine 12.5 mg once a day. 9. Norvasc 10 mg once a day. 10. Lipitor 80 mg once a day. PHYSICAL EXAMINATION: GENERAL: On exam today, the patient is alert, awake, following simple commands. He looks confused. CRANIAL NERVES: II: Pupils equal on both sides, reactive to light. Cranial nerves III, IV and : Extraocular muscles intact. Cranial nerve V: Equal sensation to face. Cranial nerve VII: Symme trical face. Cranial nerve VIII: Decreased hearing bilaterally. Cranial nerve IX and X:____ Crani al nerves XI: Elevates shoulder 5/5. Cranial nerve XII: With straight tongue. 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 Sensation decreased for glove and sock area for light touc h and temperature. COORDINATION: Jksgmd-sg-labu test intact. HEART: Regular rate and rhythm. LUNGS: Equal breath sounds. ABDOMEN: Soft, relaxed, nondistended. No tenderness. ASSESSMENT AND PLAN: 1. The patient is a 66-year-old male with underlying stroke in which we will continue the patient o n Aggrenox as well as Plavix. Counseling the patient about all of the side effects of the medicatio n versus benefits in which the patient had multiple risk of stroke, which includes hyperlipidemia, h ypertension, coronary artery disease and the stroke as well. 2. Continue the patient on antilipids in the form of Lipitor 80 mg once a day. 3. History of hypertension. Keep the blood pressure at the level of 140/90 to avoid any extension of his stroke. 4. History of diabetes. We counseled the patient about dietitian. Follow up the patient with hemo globin A1c, sliding scale insulin and fasting blood sugar level. 5. Follow up the patient with deep venous thrombosis prophylaxis as well as decubitus ulcer prophyl axis. Again, thank you for asking me to see the patient with you. Dictated By: JENNYFER PEREZ/MAURO Conf#: [id number] DID#: [id number]
[2016-07-30] MEDS: ATORVASTATIN 80 MG TAB PO SCH (21:12)
[2016-07-31] VITALS (8 sets, daily range): BP systolic 140–160; BP diastolic 65–78; PULSE 67–74; RESP 18–20
[2016-07-31] MEDS: ACCUCHECK XX SCH (02:00)
[2016-07-31] MEDS: PIPER-TAZO 3.375 GM IV (PMX) 100 ML IVPB SCH ×3 (06:18→21:41)
[2016-07-31] MEDS ORDERED: SOD CHLORIDE 0.9% 250 ML IV ONE (07:00)
[2016-07-31 07:11] LABS: ADD SCAN DIFF NO
[2016-07-31 07:14] LABS: BASOPHILS % 0.3 % (0.0-2.0); EOSINOPHILS # 0.3 10^3/ul (0.0-0.5); EOSINOPHILS % 2.6 % (0.0-7.0); HEMATOCRIT 40.5 % (42.0-52.0); HEMOGLOBIN 13.9 g/dl (14.0-18.0); LYMPHOCYTES # 1.9 10^3/ul (0.8-2.9); LYMPHOCYTES % 19.8 % (15.0-51.0); MEAN CORPUSCULAR HEMOGLOBIN 30.8 pg (29.0-33.0); MEAN CORPUSCULAR HGB CONC 34.3 g/dl (32.0-37.0); MEAN CORPUSCULAR VOLUME 89.6 fl (82.0-101.0); MEAN PLATELET VOLUME 9.2 fl (7.4-10.4); MONOCYTE # 0.7 10^3/ul (0.3-0.9); NEUTROPHIL # 6.8 10^3/ul (1.6-7.5); PLATELET COUNT 251 10^3/UL (140-415); RED BLOOD COUNT 4.52 10^6/ul (4.70-6.10); RED CELL DISTRIBUTION WIDTH 12.3 % (11.5-14.5); WHITE BLOOD COUNT 9.7 10^3/ul (4.8-10.8)
[2016-07-31 07:33] LABS: INR 1.02; PROTIME 13.4 Sec (12.2-14.2)
[2016-07-31 07:34] LABS: PARTIAL THROMBOPLASTIN TIME 24.7 Sec (25.0-35.0)
[2016-07-31] MEDS: SOD CHLORIDE 0.45% 1,000 ML IV SCH (07:40)
[2016-07-31 07:42] LABS: POTASSIUM 3.5 mmol/L (3.5-5.1)
[2016-07-31 07:45] LABS: CALCIUM 9.1 mg/dl (8.4-10.2); CREATININE 1.41 mg/dl (0.61-1.24)
[2016-07-31] MEDS: MECLIZINE 12.5 MG TAB PO SCH ×3 (08:35→20:14)
[2016-07-31] MEDS: DIPYRIDAMOLE/ASPIRIN (SR) CAP PO SCH ×2 (08:35→21:41)
[2016-07-31] MEDS: DULOXETINE 20 MG CAP DR PO SCH (08:36)
[2016-07-31] MEDS: CLOPIDOGREL 75 MG TAB NGT SCH (08:36)
[2016-07-31] MEDS: FAMOTIDINE 20 MG TAB PO SCH ×2 (08:36→20:16)
[2016-07-31] MEDS: AMLODIPINE 10 MG TAB PO SCH (08:36)
[2016-07-31] MEDS: ENOXAPARIN 40 MG/0.4 ML SYG SC SCH (08:39)
[2016-07-31] MEDS: INSULIN ASPART [NOVOLOG] 3 ML PEN SC SCH ×7 (08:39→21:00)
[2016-07-31] MEDS: INSULIN GLARGINE [LANtus] 3 ML PEN SC SCH (08:40)
--- NOTE | 2016-07-31 11:30 | PN ---
Date/Time of Note Date/Time of Note DATE: 07/31/16 TIME: 11:27 Assessment/Plan VTE Prophylaxis VTE Prophylaxis Intervention: SCD's Lines/Catheters IV Catheter Type (from Nrs): Peripheral IV Urinary Cath still in place: No Assessment/Plan Assessment/Plan 1. Acute ischemic stroke -MRI Brain shows a 1.5 cm focus of acute/recent infarct in the right posterior frontal lobe. Smaller 6 mm focus of acute/recent of a in the right posterior medulla - switched from ASA to aggrenox due to recurrent stroke, Plavix and Statin SNF placement pending plan for some swallow study today 2. S/p Fall episode yesterday, CT head negative,- pt was given risperdial but he becomes altered so it was discontinued 2. Hypertensive Emergency-now stable -s/p Cardene gtt cont Thiazide and Coreg 12.5 BID 3. Type II DM - uncontrolled 4. CAD s/p PCI -cont ASA and Plavix 5. Hypothyroidism 6. Hx of Non-compliance - long conversation with patient held for taking Rx 7. Hyperlipidemia - lipid panel - statin therapy 8. YRN s/p neurology consult , downgrade to med/surge floor Subjective 24 Hr Interval Summary Free Text/Dictation foely discontinued due to irrigation, BP stable, stable, awaiting placement, plan for Modified barium swallow Exam/Review of Systems Vital Signs Vitals Vital Signs Date Time Temp Pulse Resp B/P Pulse Ox O2 Delivery O2 Flow Rate FiO2 07/31/16 09:01 68 07/31/16 07:08 98.2 20 140/65 98 07/30/16 20:00 Nasal Cannula 07/28/16 17:00 2.0 Intake and Output 07/30/16 07/30/16 07/31/16 15:00 23:00 07:00 Intake Total 200 ml 300 ml Output Total 700 ml 150 ml Balance -500 ml 150 ml Exam Constitutional: alert Respiratory: clear to auscultation Cardiovascular: regular rate and rhythm Gastrointestinal: soft, No distended Musculoskeletal: nl extremities to inspection Results Result Diagram: 07/31/1617 07/31/16 0617 Results 24 hrs Laboratory Tests Test 07/30/16 11:57 07/30/16 16:47 07/30/16 20:25 07/31/16 06:17 Bedside Glucose 179 105 136 Activated Partial Thromboplast Time 24.7 L Anion Gap 18 H Basophils # 0.0 Basophils % 0.3 Blood Urea Nitrogen 39 H Calcium Level 9.1 Carbon Dioxide Level 30 Chloride Level 103 Creatinine 1.41 H Eosinophils # 0.3 Eosinophils % 2.6 Glucose Level 108 # Hematocrit 40.5 L Hemoglobin 13.9 L INR International Normalized Ratio 1.02 Lymphocytes # 1.9 Lymphocytes % 19.8 Mean Corpuscular Hemoglobin 30.8 Mean Corpuscular Hemoglobin Concent 34.3 Mean Corpuscular Volume 89.6 Mean Platelet Volume 9.2 Monocytes # 0.7 Monocytes % 7.0 Neutrophils # 6.8 Neutrophils % 70.0 Nucleated Red Blood Cells # 0.0 Nucleated Red Blood Cells % 0.0 Platelet Count 251 Potassium Level 3.5 Prothrombin Time 13.4 Prothrombin Time Ratio 1.0 Red Blood Count 4.52 L Red Cell Distribution Width 12.3 Sodium Level 147 H White Blood Count 9.7 Test 07/31/16 08:21 Bedside Glucose 151 Medications Medications Current Medications Flumazenil (Romazicon) 0.2 mg Q1M PRN IV BENZODIAZEPINE OVERDOSE; Start at 00:00 Ondansetron HCl (Zofran Inj) 4 mg Q6H PRN IV NAUSEA AND/OR VOMITING Last administered on 07/17/16 08:44; Admin Dose 4 MG; Start 07/15/16 at 00:00 Nitroglycerin (Nitroglycerin (Sl Tab) 0.4 Mg) 1 tab Q5M PRN SL CHEST PAIN; Start 07/15/16 at 00:00 Acetaminophen (Tylenol Supp) 650 mg Q4H PRN [place] PAIN LEVEL 1-3 OR FEVER; Start 07/15/16 at 00:00 Morphine Sulfate (morphine) 2 mg Q4H PRN IV PAIN LEVEL 7-10; Start 07/15/16 at 00:00 Lorazepam (Ativan) 1 mg Q2H PRN IV ANXIETY Last administered on 07/25/16 17:35 ; Admin Dose 1 MG; Start 07/15/16 at 00:00 Bisacodyl (Dulcolax Supp) 10 mg DAILY PRN NH CONSTIPATION; Start 07/15/16 at 00 :00 Enoxaparin Sodium (Lovenox) 40 mg DAILY SC Last administered on 07/31/16 08:39 ; Admin Dose 40 MG; Start 07/15/16 at 12:00 Miscellaneous Information 1 ea NOTE XX ; Start 07/15/16 at 17:00 Glucose (Glutose) 15 gm Q15M PRN PO DECREASED GLUCOSE; Start 07/15/16 at 17:00 Glucose (Glutose) 22.5 gm Q15M PRN PO DECREASED GLUCOSE; Start 07/15/16 at 17: 00 Dextrose (D50w Syringe) 25 ml Q15M PRN IV DECREASED GLUCOSE Last administered on 07/25/16 17:28; Admin Dose 25 ML; Start 07/15/16 at 17:00 Dextrose (D50w Syringe) 50 ml Q15M PRN IV DECREASED GLUCOSE; Start 07/15/16 at 17:00 Glucagon (Glucagen) 1 mg Q15M PRN IM DECREASED GLUCOSE; Start 07/15/16 at 17:00 Glucose (Glutose) 15 gm Q15M PRN BUCCAL DECREASED GLUCOSE; Start 07/15/16 at 17 :00 Atorvastatin Calcium (Lipitor) 80 mg HS PO Last administered on 07/30/16 21:12 ; Admin Dose 80 MG; Start 07/15/16 at 21:00 Clopidogrel Bisulfate (plaVIX) 75 mg DAILY NGT Last administered on 07/31/16 08:36; Admin Dose 75 MG; Start 07/16/16 at 09:00 Amlodipine Besylate (Norvasc) 10 mg DAILY PO Last administered on 07/31/16 08: 36; Admin Dose 10 MG; Start 07/16/16 at 14:00 Labetalol HCl (Labetalol) 20 mg Q2H PRN IV sbp >170 Last administered on 06:26; Admin Dose 20 MG; Start 07/16/16 at 14:00 Meclizine HCl (Antivert) 12.5 mg TID PO Last administered on 07/31/16 08:35; Admin Dose 12.5 MG; Start 07/17/16 at 21:00 Hydralazine HCl (Apresoline) 10 mg Q2H PRN IV SBP > 170 Last administered on 22:53; Admin Dose 10 MG; Start 07/19/16 at 09:00 Famotidine (Pepcid) 20 mg BID PO Last administered on 07/31/16 08:36; Admin Dose 20 MG; Start 07/19/16 at 21:00 Carvedilol (Coreg) 12.5 mg BID PO Last administered on 07/31/16 08:36; Admin Dose 12.5 MG; Start 07/19/16 at 21:00 Insulin Glargine (Lantus) 26 unit DAILY@08 SC Last administered on 07/31/16 08 :40; Admin Dose 26 UNIT; Start 07/21/16 at 08:00 Diagnostic Test (Pha) (Accucheck) 1 ea 02 XX ; Start 07/21/16 at 02:00 Hydralazine HCl (Apresoline) 10 mg QID PO Last administered on 07/31/16 08:35 ; Admin Dose 10 MG; Start 07/21/16 at 09:00 Acetaminophen (Tylenol Tab) 650 mg Q4H PRN PO PAIN AND OR ELEVATED TEMP Last administered on 07/27/16 12:27; Admin Dose 650 MG; Start 07/27/16 at 11:00 Lactulose (Enulose) 20 gm BID PRN PO CONSTIPATION; Start 07/27/16 at 11:00 Duloxetine HCl 20 mg 20 mg DAILY PO Last administered on 07/31/16 08:36; Admin Dose 20 MG; Start 07/27/16 at 11:00 Piperacillin Sod/ Tazobactam Sod (Zosyn 3.375gm/ 100 ml (Pmx)) 100 ml @ 200 mls /hr Q8 IVPB Last administered on 07/31/16 06:18; Admin Dose 200 MLS/HR; Start 07/27/16 at 22:00 Dipyridamole/ Aspirin 1 cap 1 cap BID PO Last administered on 07/31/16 08:35; Admin Dose 1 CAP; Start 07/29/16 at 09:00 Sodium Chloride (1/2 NS) 1,000 ml @ 75 mls/hr [id number] IV Last administered on 07/31/16 07:40; Admin Dose 75 MLS/HR; Start 07/31/16 at 07:00 TEETEE GRIDER MD Jul 31, 2016 11:30
--- NOTE | 2016-07-31 19:28 | CONS ---
DATE OF ADMISSION: 07/15/2016 DATE OF CONSULTATION: REFERRING PHYSICIAN: Dr. Bangura and Dr. Edwards Thank you for asking me to see the patient with you. HISTORY OF PRESENT ILLNESS: The patient is 66 years old with a new-onset stroke in which we started the patient on Aggrenox as well as Plavix, and we discontinued the patient's aspirin because the Ag grenox contained ____ more as well as in aspirin in which the patient failed in the past Plavix and aspirin in which the patient had stroke in spite of the medication. We increased the medicine, and we counseled the patient about side effects of the medication. The patient also has a past medical history of hypertension, dyslipidemia, coronary artery disease, congestive heart failure. CURRENT MEDICATIONS: Include: 1. Aggrenox 1 tablet twice a day. 2. Plavix 75 mg once a day. 3. Lantus 26 once a day. 4. Cymbalta 20 mg once a day. 5. Tylenol 650 mg once a day. 6. Pepcid 20 mg once a day. 7. Coreg 12.5 mg once a day. 8. Meclizine 12.5 mg once a day. 9. Norvasc 10 mg once a day. 10. Lipitor 80 mg once a day. PHYSICAL EXAMINATION: GENERAL: On exam today, the patient is alert, awake, oriented, following simple commands. Looks co nfused, however is improving from previous from yesterday. CRANIAL NERVES: Cranial nerve II: Pupils equal on both sides, reactive to light. Cranial nerves I II, IV and : Extraocular muscles intact. No nystagmus. Cranial nerve V: Equal sensation to fac e. Cranial nerve VII: Symmetrical face. Cranial nerve VIII: Decreased hearing bilaterally. Cran ial nerve IX and X: Elevates his palate. Cranial nerve XI: Elevates shoulder 5/5. Cranial nerve XII: Straight tongue. 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 Sensation decreased for glove and sock area for light touc h and temperature. COORDINATION: [place]-qc-rdxq test intact. HEART: Regular rate and rhythm. LUNGS: Equal breath sounds. ABDOMEN: Soft, relaxed, nondistended. No tenderness. ASSESSMENT AND PLAN: 1. This is a patient 66 years old with underlying stroke. Will continue the patient on Aggrenox as well as Plavix in which the patient has failed on Plavix and the aspirin and had more stroke. 2. Dyslipidemia. Will continue the patient on Lipitor 80 mg and pet adoption counselor the patient about ____ as well as will follow up the patient with lipid panel. 3. History of hypertension. Keep the blood pressure at the level of 140/90 to avoid any extension of the stroke. Continue the patient on Coreg. 4. History of depression. Continue the patient on Cymbalta 20 mg once a day. 5. History of diabetes. Follow up the patient with hemoglobin A1c, sliding scale insulin, fasting blood sugar and pet adoption counselor the patient about diet. 6. Keep the patient on the deep venous thrombosis prophylaxis as well as decubitus ulcer prophylaxi s. Again, thank you for asking me to see the patient with you. Dictated By: JENNYFER PEREZ/MAURO Conf#: [id number] DID#: [id number]
[2016-07-31] MEDS: ATORVASTATIN 80 MG TAB PO SCH (20:16)
[2016-08-01] MEDS: ACCUCHECK XX SCH (02:00)
[2016-08-01] MEDS: SOD CHLORIDE 0.45% 1,000 ML IV SCH ×2 (03:43→09:40)
[2016-08-01] MEDS: PIPER-TAZO 3.375 GM IV (PMX) 100 ML IVPB SCH ×2 (05:20→13:38)
[2016-08-01] MEDS: LORAZEPAM 2 MG INJ IV PRN ×2 (06:14→08:08)
[2016-08-01] MEDS: INSULIN ASPART [NOVOLOG] 3 ML PEN SC SCH ×4 (08:00→11:44)
[2016-08-01] MEDS: DULOXETINE 20 MG CAP DR PO SCH (08:06)
[2016-08-01] MEDS: CLOPIDOGREL 75 MG TAB NGT SCH (08:06)
[2016-08-01] MEDS: FAMOTIDINE 20 MG TAB PO SCH (08:07)
[2016-08-01] MEDS: AMLODIPINE 10 MG TAB PO SCH (08:07)
[2016-08-01] MEDS: MECLIZINE 12.5 MG TAB PO SCH ×2 (08:07→13:38)
[2016-08-01] MEDS: ENOXAPARIN 40 MG/0.4 ML SYG SC SCH (08:08)
[2016-08-01 08:14] VITALS: BP 184/88; RESP 20
[2016-08-01] MEDS: DIPYRIDAMOLE/ASPIRIN (SR) CAP PO SCH (10:06)
[2016-08-01] MEDS: INSULIN GLARGINE [LANtus] 3 ML PEN SC SCH (10:08)
[2016-08-01 11:00] VITALS: BP 157/80
[2016-08-01] MEDS ORDERED: BARIUM SULFATE 135 ML (E-Z HD) PO ONE (14:28)
--- NOTE | 2016-08-01 15:16 | PDOCDIS ---
Discharge Instructions DIAGNOSIS Discharge Diagnosis: Acute stroke. CONDITION Patient Condition: Stable HOME CARE INSTRUCTIONS: Special Diet: mech soft,nectar thick liquid OTHER ORDERS: Other Orders: 1. Medications as per medication reconciliation. 2. Mechanical soft diet with nectar thick liquids. 3. Aspiration precautions. 4. Activities with assist. ORQUIDEA GUSTAFSON NP Aug 01, 2016 15:16
[2016-08-01] MEDS ORDERED: ASPI1CPM6 PO (15:19)
[2016-08-01] MEDS ORDERED: CLOP75TA28 NGT (15:19)
[2016-08-01] MEDS ORDERED: ATOR80TA75 PO (15:19)
[2016-08-01] MEDS ORDERED: DULR PR (15:19)
[2016-08-01] MEDS ORDERED: HYDR-3670 PO (15:19)
[2016-08-01] MEDS ORDERED: DULO20CA43 PO (15:19)
[2016-08-01] MEDS ORDERED: CARV12.579 PO (15:19)
[2016-08-01] MEDS ORDERED: FAMO20TA18 PO (15:19)
[2016-08-01] MEDS ORDERED: LANT3I SC (15:22)
[2016-08-01] MEDS ORDERED: NOVO3I SC ×2 (15:22)
--- NOTE | 2016-08-01 18:25 | RADRPT ---
PROCEDURE: Video-fluoroscopy swallowing study. CLINICAL INDICATION: Dysphagia. TECHNIQUE: Fluoroscopic guided video swallowing study was done in conjunction with the speech ther apist. The study was confined to the oral, pharyngeal, and cervical phases of the swallowing mechani sm. 4.4 minutes of fluoroscopy time was used. COMPARISON: No prior study is available for comparison. FINDINGS: There is penetration with puree secondary to residue. There is penetration with mechanical soft, se condary to residue. There is moderate to severe amounts of residue with regular solid. Penetration is present with thin liquids and silent aspiration is visualized with thin the liquids s wallowed by cup and straw. IMPRESSION: 1. Abnormal study with aspiration as described above. 2. Please refer to the speech therapist's recommendations for future feedings. RPTAT: QQ .Seamus Youssef MD, Date Time Electronically viewed and signed by .Seamus Youssef MD, on 08/01/2016 18:25 .R/
[2016-08-01] MEDS: hydrALAzine 20 MG INJ IV PRN (18:48)
--- NOTE | 2016-08-01 19:11 | DS ---
DATE OF ADMISSION: 07/15/2016 DATE OF DISCHARGE: 08/01/2016 FINAL DIAGNOSES: 1. Acute stroke involving multiple foci throughout the cerebral hemispheres, right splenium of corpus callosum and right medulla, with extension to the restiform body compatible with areas of acute or subacute ischemic infarction. 2. Status post hypertensive urgency. 3. Essential hypertension. 4. Type 2 diabetes mellitus. Hemoglobin A1c 10.6. 5. Coronary artery disease status post PCI in the past. 6. Hypothyroidism. 7. Dyslipidemia. 8. Urinary tract infection. 9. Acute kidney injury. CONSULTATIONS: 1. Dr. Jann Napier, Neurology. 2. Dr. Ladarius Marroquin, Neurology. HOSPITAL COURSE: This is a 66-year-old male with a past medical history of multiple CVAs with residual left-sided weakness, type 2 diabetes mellitus, essential hypertension, CAD, hypothyroidism, diastolic heart failure, and hyperlipidemia who presented to the emergency room with right-sided weakness. The patient was noticed to have ataxia by the family members and therefore, EMS was called. There was no report of slurred speech or facial droop. There was no reported chest pain, dyspnea, nausea, vomiting, abdominal pain, diarrhea, constipation, or urinary or bowel irregularities. In the emergency room, a code stroke was called and no TPA was done secondary to underlying hypertensive urgency with a blood pressure as high as 242/112 in the emergency room. Provided the patient's history of present illness, his comorbidities, and the diagnostic findings, a clinical decision was made to admit the patient to inpatient setting to have him further evaluated. The patient was admitted to inpatient intensive care unit. A neurologic consult was obtained. Neurovascular checks were ordered. Further brain imaging studies were ordered. The patient was seen and evaluated by neurology. Neurologist recommended rehabilitation as well as starting the patient on antiplatelet therapy along with increasing the dose of statins. The patient underwent a carotid Doppler study that did not show any evidence of any hemodynamically significant stenosis. The patient's 2D echocardiogram showed preserved left ventricular ejection fraction with stage I diastolic dysfunction. The patient was started on appropriate antihypertensives and the patient's blood pressure was lowered gradually to obtain optimal levels. The patient has underlying type 2 diabetes mellitus. The patient's hemoglobin A1c was found to be 10.6. The patient was maintained on sliding scale insulin along with Lantus insulin with poorly blood sugars. The patient was later transferred out of the ICU once he was clinically stable. On 07/27/2016, the patient had a rapid response when he had an episode of lethargy. Consequently, the patient was transferred back to the intensive care unit. The patient underwent a repeat brain MRI that revealed multiple bilateral foci of restricted diffusion throughout the cerebral hemispheres, right splenium of the corpus callosum, and right medulla with extension into the restiform body compatible with subacute ischemic infarction. Because of the patient's history of multiple strokes, the patient was started on dual antiplatelet therapy. As mentioned earlier, the patient's statin therapy was increased to 80 mg daily. The patient also had acute kidney injury during this hospitalization, most probably secondary to hemodynamics versus others. The patient's BUN and creatinine improved. Nephrotoxic drugs were used with caution on this patient. The patient was seen and evaluated by physical therapy and speech therapy. Physical therapy recommended penitentiary facility placement. The patient is not an appropriate candidate for home placement. Hence, this was discussed with the patient's family and the patient's family agreed with placement to a penitentiary facility. Meanwhile, speech therapy recommended to continue the patient on a mechanical soft diet with nectar thick liquids and keep the patient on aspiration precautions. Currently, the patient is stable to be discharged to a penitentiary facility. The patient will be discharged to penitentiary facility. DISCHARGE DISPOSITION/PLAN: The patient will be discharged to [facility]. The patient will take medications as per the medication list. The patient will take a mechanical soft diet with nectar thick liquids. The patient will be maintained on aspiration precautions. Activities will be with supervision. Nursing was instructed to endorse the discharge instructions to the nursing personnel at the penitentiary facility. CONDITION AT DISCHARGE: Stable. DISCHARGE MEDICATIONS 1. Aspirin with dipyridamole 1 capsule p.o. b.i.d. 2. Atorvastatin 80 mg p.o. at bedtime. 3. Coreg 12.5 mg p.o. b.i.d. 4. Plavix 75 mg p.o. daily. 5. Cymbalta 20 mg p.o. daily. 7. Famotidine 20 mg p.o. b.i.d. 8. Hydralazine 10 mg p.o. q.i.d. 9. NovoLog insulin 10 units subcutaneously with meals. 10. Lantus insulin 26 units subcutaneous daily. 11. Amlodipine 10 mg p.o. daily. 12. Metformin 1000 mg p.o. b.i.d. PERTINENT LABORATORY AND DIAGNOSTIC DATA: 1. A 2D echocardiogram. Ejection fraction of 70%. Stage I diastolic dysfunction. 2. CT scan upon admission. No intracranial hemorrhage or abnormal extraaxial fluid collection. 3. Carotid Doppler study. No hemodynamically significant stenosis. Normal antegrade flow in the vertebral arteries bilaterally. 4. Brain MRI with MRA. Mild right and moderate stenosis of the cavernous and supraclinoid segments of the internal carotid arteries. Moderate to marked focal stenosis of P1/P2 segment junction and mid P2 segment of the left posterior cerebral artery. Moderate to marked focal stenosis of the distal P2 segment of the right posterior cerebral artery. Mild to moderate narrowing of proximal bilateral intradural vertebral arteries. Moderate focal stenosis of bilateral M2 branches of bilateral cerebral arteries. 4. Brain MRI on 06/28/2016: A 1.5 cm focus of acute recent infarct in the right posterior frontal lobe. 5. Repeat brain MRI on 07/27/2016. Multiple bilateral foci of restricted diffusion throughout the cerebral hemispheres, right splenium of corpus callosum and right medulla with extension into the restiform body compatible with areas of acute/subacute ischemic infarction. No evidence of hemorrhagic conversion edema, mass effect or shift. 6. ABG that was done on room air on 07/28/2016: pH 7.461, pCO2 37.6, pO2 57.8 , bicarbonate 26.2, oxygen saturation 91.6. 7. Hemoglobin A1c 10.6. At this time, we would like to thank all the consultants for seeing the patient and providing clinical recommendations. The case and management of this patient was fully discussed with Dr. Barroso. Approximately 35 minutes was spent on coordinating discharge on this patient. ORQUIDEA BARROSO MD, AM/MAURO Conf#: [id number] DID#: [id number]
== END 2016-08-01 19:29 | DRG 64 ==
LOC: E/R 22:11 → ICU 07-15 → MS2 07-18 18:55 → ICU 07-27 14:00 → TEL 07-29 16:51 → PP2 07-31 13:17
PROVIDERS: ADMIT Student in an Organized Health Care Education/Training Program; ATTEND Student in an Organized Health Care Education/Training Program
DX: I63.9 Cerebral infarction, unspecified (principal); G93.40 Encephalopathy, unspecified; N17.9 Acute kidney failure, unspecified; I11.0 Hypertensive heart disease with heart failure; I50.30 Unspecified diastolic (congestive) heart failure; I16.1 Hypertensive emergency; I69.954 Hemiplegia and hemiparesis following unspecified cerebrovascular disease affecting left non-dominant side; N39.0 Urinary tract infection, site not specified; E11.65 Type 2 diabetes mellitus with hyperglycemia; R29.704 NIHSS score 4; I25.10 Atherosclerotic heart disease of native coronary artery without angina pectoris; E03.9 Hypothyroidism, unspecified; Z91.14 Patient's other noncompliance with medication regimen; E78.5 Hyperlipidemia, unspecified; R41.0 Disorientation, unspecified; Z78.1 Physical restraint status; R56.9 Unspecified convulsions; F32.9 Major depressive disorder, single episode, unspecified; R13.10 Dysphagia, unspecified
CPT/HCPCS: 36415; 36600; 70450; 70544; 70551; 71010; 74230; 80048; 80053; 80061; 80307; 81001; 81003; 82140; 82803; 82962; 83036; 83735; 83935; 84100; 84155; 84300; 84443; 84484; 85025; 85610; 85730; 87040; 87075; 87081; 87086; 90686; 92526; 92610; 92611; 93005; 93306; 93880; 95819; 96374; 96375; 97110; 97116; 97162; 97530; J0360; J1630; J1650; J1815; J2060; J2310; J2405; J2543; J7030; J7040; J7042; J7070

== ENCOUNTER 2017-02-24 08:31 | Inpatient (IN) | payer MEDICARE, OTHER ==
[~2017-02-24] VITALS: Ht 172.7 cm; Wt 62.0 kg
[~2017-02-24 08:31] MED LIST changes: -ASPI-664 PO; +ASPI1CPM6 PO; -ATOR20TA38 PO; +ATOR80TA75 PO; +BISA10SU75 PR; +CARV12.579 PO; -CARV6.2579 PO; -CIPR500T4 PO; +CLOP75TA28 NGT; -DOCU-144 PO; +DULO20CA43 PO; +FAMO20TA18 PO; +HYDR-3670 PO; -LACTINEX PO; -LOSA50TA6 PO; -METR500T14 PO; +NOVO3I SC
[2017-02-24 08:35] VITALS: Ht 172.7 cm; Wt 62.0 kg
--- NOTE | 2017-02-24 08:53 | ERA ---
ER Documentation Chief Complaint Date/Time DATE: 02/24/17 TIME: 08:49 Chief Complaint HPI Patient is a 66-year-old male with history of multiple strokes sent from a convalescent home for being found unresponsive this morning with low blood pressure. The patient has a comfort measures only order on his POLST, which was confirmed with family members. However, the family requested transfer to the hospital according to the convalescent home. History is limited due to patient being altered and limited report from convalescent home. Glucose in the field was over 300. ROS All systems reviewed and are negative except as per history of present illness. Medications Home Meds Active Scripts Insulin Glargine* (Lantus*) 100 Unit/Ml Soln, 26 UNIT SC DAILY@08 for 30 Days Prov:ORQUIDEA GUSTAFSON NP 08/01/16 Insulin Aspart* (Novolog Insulin Pen*) 100 Unit/Ml Soln, 0 UNIT SC WITH MEALS BEDTIME for 30 Days, #60 Prov:ORQUIDEA GUSTAFSON NP 08/01/16 Insulin Aspart* (Novolog Insulin Pen*) 100 Unit/Ml Soln, 10 UNIT SC WITH MEALS for 30 Days Prov:ORQUIDEA GUSTAFSON NP 08/01/16 Hydralazine Hcl* (Hydralazine Hcl*) 10 Mg Tablet, 10 MG PO QID for 30 Days, TAB Prov:ORQUIDEA GUSTAFSON NP 08/01/16 Famotidine* (Famotidine*) 20 Mg Tablet, 20 MG PO BID for 30 Days, TAB Prov:ORQUIDEA GUSTAFSON NP 08/01/16 Duloxetine Hcl* (Cymbalta*) 20 Mg Capsule.dr, 20 MG PO DAILY for 30 Days Prov:ORQUIDEA GUSTAFSON NP 08/01/16 Clopidogrel Bisulfate (Clopidogrel) 75 Mg Tablet, 75 MG NGT DAILY for 30 Days, TAB Prov:ORQUIDEA GUSTAFSON NP 08/01/16 Carvedilol* (Carvedilol*) 12.5 Mg Tablet, 12.5 MG PO BID for 30 Days, TAB Prov:ORQUIDEA GUSTAFSON NP 08/01/16 Bisacodyl* (Bisacodyl*) 10 Mg Supp, 10 MG VT DAILY Y for CONSTIPATION for 30 Days, SUPP Prov:ORQUIDEA GUSTAFSON NP 08/01/16 Atorvastatin* (Atorvastatin*) 80 Mg Tablet, 80 MG PO HS for 30 Days, TAB Prov:ORQUIDEA GUSTAFSON DIRECTOR OF QUANTITATIVE RESEARCH 08/01/16 Aspirin/Dipyridamole (Aspirin-Dipyridam ER 25-200 mg) 1 Each Cpmp.12hr, 1 CAP PO BID for 30 Days Prov:ORQUIDEA GUSTAFSON DIRECTOR OF QUANTITATIVE RESEARCH 08/01/16 Amlodipine Besylate* (Norvasc*) 10 Mg Tab, 10 MG PO DAILY, #30 Prov:THU MAY 12/30/14 Reported Medications Metformin Hcl (Glucophage) 500 Mg Tablet, 1000 MG PO BID, TAB 02/21/15 Allergies Allergies: Coded Allergies: No Known Drug Allergy (Verified Allergy, Unknown, 02/24/17) PMhx/Soc Past medical history: Multiple CVAs, diabetes mellitus Past surgical history: Cannot obtain Social history: Lives in convalescent home History of Surgery: Yes (stent placement) Anesthesia Reaction: No Hx Neurological Disorder: No Hx Respiratory Disorders: No Hx Cardiac Disorders: Yes (CHF, HTN) Hx Psychiatric Problems: No Hx Miscellaneous Medical Probl: Yes (multiple CVAs with L hemiparesis, DM, essential HTN, CAD w/p PCI, CHF) Hx Alcohol Use: No Hx Substance Use: No Hx Tobacco Use: Yes FmHx Cannot obtain Physical Exam Vitals Vital Signs Date Time Temp Pulse Resp B/P Pulse Ox O2 Delivery O2 Flow Rate FiO2 02/24/17 11:30 71 8 60/40 94 Nasal Cannula 2.0 02/24/17 09:30 77 6 52/36 92 Nasal Cannula 2.0 02/24/17 08:35 97.8 106 8 63/40 97 Physical Exam Const: Severely ill-appearing, not responsive to voice or sternal rub Head: Atraumatic Eyes: Normal Conjunctiva, No pallor, no icterus ENT: Normal External Ears, Nose and Mouth. Tacky mucous membranes Neck: Full range of motion..~ No meningismus. Resp: Bradypnea, Clear to auscultation bilaterally, No wheezes, no rales Cardio: Tachycardia, regular rhythm, no murmurs Abd: Soft, non tender, non distended. Ext: No cyanosis, or edema Neur: Lethargic, no spontaneous movement Psych: Cannot assess Results 24 hrs Laboratory Tests Test 02/24/17 08:41 Bedside Glucose 306mg/dL Procedures/MDM MDM: Patient is a 66-year-old male with history of multiple CVAs who is been in a convalescent home and was sent to the ER today for hypotension and altered mental status. The patient has an advanced directive indicating that he is comfort measures only. 3 family members came to the ER and confirmed that the patient indicated that he would not want medical workup or treatment at this stage of his illness. Medical workup was therefore deferred. The patient was placed on supplemental oxygen. Monitoring was ceased. The patient had bradypnea but no evidence of disorganized breathing or respiratory distress. He showed no signs of discomfort. He will be admitted to the hospital for end- of-life care with anticipated impending demise. I cannot speculate on the cause of the patient's hypotension, but differential diagnosis includes septic shock, cardiogenic shock, obstructive shock, hypovolemia. He did not have fever. Departure Diagnosis: Primary Impression: Altered mental status Qualified Code: R40.2432 - Spencer coma scale total score 3-8, at arrival to emergency department Additional Impression: Hypotension Qualified Code: I95.9 - Hypotension, unspecified hypotension type Condition: Critical DERRICK BARRIOS MD Feb 24, 2017 08:53
[2017-02-24] MEDS ORDERED: ONDANSETRON 4 MG INJ IV PRN (13:00)
[2017-02-24] MEDS ORDERED: ACETAMINOPHEN 325 MG TAB PO PRN (13:00)
[2017-02-24 13:12] VITALS: BP 53/36; PULSE 69; RESP 9
--- NOTE | 2017-02-24 14:38 | HP ---
Date/Time of Note Date/Time of Note DATE: 02/24/17 TIME: 14:38 Assessment/Plan VTE Prophylaxis VTE Prophylaxis Intervention: other Lines/Catheters IV [facility] Saline Lock Assessment/Plan Chief Complaint/Hosp Course 1. Acute on chronic encephalopathy Patient pronounced, patient at 2:35 PM on 02/24/2017 Patient was a DNR/DNI according to POLST, which was confirmed with family members Problems: HPI/ROS Admit Date/Time Admit Date/Time Feb 24, 2017 at 12:54 Hx of Present Illness Patient is a 66-year-old male with a history of CVA, hypertension, diabetes, coronary disease status post PCI in the past. She has been declining and family brought patient in as he continued to decline. Patient's CODE STATUS was DNR/DNI, family was aware the patient was facing imminent the [facility]. ROS unable to obtain PMH/Family/Social Past Medical History Per HPI Past Surgical History Past Surgical Hx: angioplasty Family History Significant Family History: no pertinent family hx Social History Smoking Status: Never smoker Exam/Review of Systems Vital Signs Vitals Vital Signs Date Time Temp Pulse Resp B/P Pulse Ox O2 Delivery O2 Flow Rate FiO2 02/24/17 13:12 69 9 53/36 91 Nasal Cannula 2.0 02/24/17 08:35 97.8 Exam Constitutional: non-verbal Respiratory: other (No breath sounds) Cardiovascular: other (Heart sounds) Gastrointestinal: soft Musculoskeletal: nl extremities to inspection PRINCE NOWAK Feb 24, 2017 14:38
--- NOTE | 2017-02-24 17:29 | DES ---
Date/Time of Note Date/Time of Note DATE: 02/24/17 TIME: 17:25 Discharge/ Summary Admission/Discharge Info Admit Date/Time Feb 24, 2017 at 12:54 Discharge Date/Time 02/24/2017 Final Diagnosis 1. Cardiopulmonary arrest chronic conditions 2. History of CVA 3. History of hypertension, diabetes, coronary disease Preliminary Cause of 1. Cardiopulmonary arrest in [place] to chronic conditions 2. History of CVA 3. History of hypertension, diabetes, coronary disease Hospital Course Patient is a 66-year-old male with a history of CVA, hypertension, diabetes, coronary disease status post PCI in the past. She has been declining and family brought patient in as he continued to decline. Patient's CODE STATUS was DNR/DNI, family was aware the patient was facing imminent the patient shortly after arrival to the [facility] floor. Of note the patient had presented with acute on chronic encephalopathy, patient was a DNR/DNI according to POLST, which was confirmed with family members. Patient pronounced at 2:35 PM on 02/24/2017. Pending Labs/Cultures Laboratory Tests Test 02/24/17 08:41 Bedside Glucose 306mg/dL (70-220) PRINCE NOWAK Feb 24, 2017 17:29
== END 2017-02-24 14:35 | disposition expired | DRG 71 ==
LOC: E/R 08:31 → MS2 12:54
PROVIDERS: ADMIT Internal Medicine; ATTEND Internal Medicine
DX: G93.40 Encephalopathy, unspecified (principal); I25.110 Atherosclerotic heart disease of native coronary artery with unstable angina pectoris; I10 Essential (primary) hypertension; Z86.73 Personal history of transient ischemic attack (TIA), and cerebral infarction without residual deficits; Z98.61 Coronary angioplasty status; Z66 Do not resuscitate; I46.9 Cardiac arrest, cause unspecified
CPT/HCPCS: 82962